=== PATIENT | female | born 1945 | race Caucasian/White ===

== ENCOUNTER → 2016-08-11 | Outpatient (REF) | payer MEDICARE, BC ==
[2016-08-11 16:22] LABS: BASO % 0.3 % (0.0-1.0); EOS # 0.2 K/mm3 (0.0-0.50); EOS % 3.4 % (0.0-3.0); LARGE UNSTAINED CELL # 0.1 K/mm3 (0.0-0.4); LARGE UNSTAINED CELL % 0.9 % (0.0-4.0); LYMPH # 1.7 K/mm3 (1.5-4.5); LYMPH % 23.2 % (24.0-44.0); MEAN CORPUSCULAR HEMOGLOBIN 28.8 pg (27.0-33.0); MEAN CORPUSCULAR HGB CONC 32.3 g/dl (32.0-36.5); MEAN CORPUSCULAR VOLUME 89.2 fl (80.0-96.0); MONO # 0.3 K/mm3 (0.0-0.8); MONO % 4.5 % (0.0-5.0); NEUTROPHILS # 4.9 K/mm3 (1.8-7.7); NEUTROPHILS % 67.7 % (36.0-66.0); PLATELET COUNT, AUTOMATED 240 k/mm3 (150-450); RED CELL DISTRIBUTION WIDTH 13.9 % (11.5-14.5); WHITE BLOOD COUNT 7.2 K/mm3 (4.0-10.0)
[2016-08-11 16:51] LABS: ALT/SGPT 20 U/L (12-78); GLOMERULAR FILTRATION RATE > 60.0 (>45)
[2016-08-11 20:09] LABS: ERYTHROCYTE SEDIMENTATION RATE 20 mm/hr (0-30)
== END ==
LOC: M LABDRAW1 15:40
PROVIDERS: ATTEND Internal Medicine Rheumatology
DX: Z51.81 Encounter for therapeutic drug level monitoring (principal); Z79.899 Other long term (current) drug therapy; M35.9 Systemic involvement of connective tissue, unspecified

== ENCOUNTER → 2016-12-03 | Outpatient (REF) | payer MEDICARE, BC ==
[2016-12-03 13:47] LABS: BASO % 0.3 % (0.0-1.0); EOS # 0.3 K/mm3 (0.0-0.50); EOS % 3.9 % (0.0-3.0); LARGE UNSTAINED CELL # 0.1 K/mm3 (0.0-0.4); LARGE UNSTAINED CELL % 1.3 % (0.0-4.0); LYMPH # 1.8 K/mm3 (1.5-4.5); LYMPH % 26.5 % (24.0-44.0); MEAN CORPUSCULAR HEMOGLOBIN 29.9 pg (27.0-33.0); MEAN CORPUSCULAR VOLUME 90.6 fl (80.0-96.0); MONO # 0.2 K/mm3 (0.0-0.8); MONO % 3.5 % (0.0-5.0); NEUTROPHILS # 4.5 K/mm3 (1.8-7.7); NEUTROPHILS % 64.6 % (36.0-66.0); PLATELET COUNT, AUTOMATED 244 k/mm3 (150-450); RED CELL DISTRIBUTION WIDTH 13.1 % (11.5-14.5); WHITE BLOOD COUNT 6.9 K/mm3 (4.0-10.0)
[2016-12-03 13:58] LABS: ALT/SGPT 28 U/L (12-78); GLOMERULAR FILTRATION RATE > 60.0 (>45)
[2016-12-03 14:42] LABS: ERYTHROCYTE SEDIMENTATION RATE 17 mm/hr (0-30)
== END ==
LOC: M LABDRAW1 13:02
PROVIDERS: ATTEND Internal Medicine Rheumatology
DX: M35.9 Systemic involvement of connective tissue, unspecified (principal); Z79.899 Other long term (current) drug therapy

== ENCOUNTER → 2017-04-16 | Outpatient (REF) | payer MEDICARE, BC ==
[2017-04-16 13:32] LABS: BASO % 0.5 % (0.0-1.0); EOS # 0.2 10^3/uL (0.0-0.50); EOS % 2.7 % (0.0-3.0); IMMATURE GRANULOCYTE % 0.8 % (0-0); LYMPH # 2.1 10^3/uL (1.5-4.5); LYMPH % 24.2 % (24.0-44.0); MEAN CORPUSCULAR HEMOGLOBIN 29.3 pg (27.0-33.0); MEAN CORPUSCULAR HGB CONC 32.6 g/dl (32.0-36.5); MEAN CORPUSCULAR VOLUME 89.9 fl (80.0-96.0); MONO # 0.4 10^3/uL (0.0-0.8); MONO % 4.9 % (0.0-5.0); NEUTROPHILS # 5.7 10^3/uL (1.8-7.7); NEUTROPHILS % 66.9 % (36.0-66.0); PLATELET COUNT, AUTOMATED 265 10^3/uL (150-450); RED CELL DISTRIBUTION WIDTH 12.8 % (11.5-14.5); WHITE BLOOD COUNT 8.6 10^3/uL (4.0-10.0)
[2017-04-16 13:38] LABS: ALT/SGPT 22 U/L (12-78); CREATININE FOR GFR 0.82 MG/DL (0.55-1.02); GLOMERULAR FILTRATION RATE > 60.0 (>45)
[2017-04-16 14:48] LABS: ERYTHROCYTE SEDIMENTATION RATE 16 mm/hr (0-30)
== END ==
LOC: M LABDRAW1 10:04
PROVIDERS: ATTEND Internal Medicine Rheumatology
DX: M35.1 Other overlap syndromes (principal); Z51.81 Encounter for therapeutic drug level monitoring; Z79.899 Other long term (current) drug therapy

== ENCOUNTER → 2017-07-29 | Outpatient (REF) | payer MEDICARE, BC ==
[2017-07-29 16:27] LABS: BASO % 0.5 % (0.0-1.0); EOS # 0.4 10^3/uL (0.0-0.50); HEMATOCRIT 38.7 % (36.0-47.0); HEMOGLOBIN 12.5 g/dl (12.0-16.0); IMMATURE GRANULOCYTE % 0.4 % (0-0); LYMPH # 2.1 10^3/uL (1.5-4.5); LYMPH % 26.2 % (24.0-44.0); MEAN CORPUSCULAR HEMOGLOBIN 28.9 pg (27.0-33.0); MEAN CORPUSCULAR HGB CONC 32.3 g/dl (32.0-36.5); MEAN CORPUSCULAR VOLUME 89.6 fl (80.0-96.0); MONO # 0.4 10^3/uL (0.0-0.8); MONO % 5.3 % (0.0-5.0); NEUTROPHILS % 62.6 % (36.0-66.0); PLATELET COUNT, AUTOMATED 259 10^3/uL (150-450); RED BLOOD COUNT 4.32 10^6/uL (4.00-5.40); RED CELL DISTRIBUTION WIDTH 12.7 % (11.5-14.5)
[2017-07-29 17:13] LABS: ALBUMIN 3.7 GM/DL (3.2-5.2); ALBUMIN/GLOBULIN RATIO 1.16 (1.00-1.93); ALKALINE PHOSPHATASE 67 U/L (45-117); ALT/SGPT 21 U/L (12-78); ANION GAP 5 MEQ/L (8-16); AST/SGOT 11 U/L (7-37); BILIRUBIN,TOTAL 0.3 MG/DL (0.2-1.0); BLOOD UREA NITROGEN 18 MG/DL (7-18); CALCIUM LEVEL 8.6 MG/DL (8.8-10.2); CARBON DIOXIDE LEVEL 29 MEQ/L (21-32); CHLORIDE LEVEL 108 MEQ/L (98-107); CREATININE FOR GFR 0.87 MG/DL (0.55-1.02); GLOMERULAR FILTRATION RATE > 60.0 (>45); GLUCOSE, FASTING 98 MG/DL (70-100); POTASSIUM SERUM 4.1 MEQ/L (3.5-5.1); SODIUM LEVEL 142 MEQ/L (136-145); TOTAL PROTEIN 6.9 GM/DL (6.4-8.2)
== END ==
LOC: M LABDRAW1 15:14
DX: M50.322 Other cervical disc degeneration at C5-C6 level (principal); M35.01 Sjogren syndrome with keratoconjunctivitis; Z79.899 Other long term (current) drug therapy
CPT/HCPCS: 80053

== ENCOUNTER → 2019-08-13 | Outpatient (CLI) | payer MEDICARE, BC ==
[2019-08-13 10:34] LABS: PLATELET COUNT, AUTOMATED 241 10^3/uL (150-450)
[2019-08-13 10:45] LABS: INR 1.02; PARTIAL THROMBOPLASTIN TIME 27.9 SECONDS (25.0-38.4); PROTHROMBIN TIME 13.1 SECONDS (11.8-14.0)
== END ==
LOC: M LAB 10:04
PROVIDERS: ATTEND Physician Assistant
DX: Z01.818 Encounter for other preprocedural examination (principal)

== ENCOUNTER → 2019-12-06 | Outpatient (CLI) | payer MEDICARE, BC | LOC: M LABSMTC 12:01 | PROVIDERS: ATTEND Physician Assistant | DX: Z11.59 Encounter for screening for other viral diseases (principal) ==

== ENCOUNTER → 2020-03-14 | Outpatient (CLI) | payer MEDICARE, BC | LOC: M LABSMTC 09:53 | PROVIDERS: ATTEND Physical Medicine & Rehabilitation | DX: Z01.812 Encounter for preprocedural laboratory examination (principal) ==

== ENCOUNTER → 2020-04-05 | Outpatient (CLI) | payer MEDICARE, BC ==
[2020-04-05 14:05] LABS: PLATELET COUNT, AUTOMATED 252 10^3/uL (150-450)
[2020-04-05 14:14] LABS: PROTHROMBIN TIME 13.4 SECONDS (12.5-14.3)
[2020-04-05 14:15] LABS: PARTIAL THROMBOPLASTIN TIME 28.8 SECONDS (24.2-38.5)
== END ==
LOC: M PLALAB 11:25
PROVIDERS: ATTEND Physician Assistant
DX: M48.061 Spinal stenosis, lumbar region without neurogenic claudication (principal)

== ENCOUNTER → 2020-05-09 | Outpatient (CLI) | payer MEDICARE, BC | LOC: M LABSMTC 10:45 | PROVIDERS: ATTEND Physical Medicine & Rehabilitation | DX: Z01.818 Encounter for other preprocedural examination (principal) ==

== ENCOUNTER → 2020-12-05 | Outpatient (CLI) | payer MEDICARE, BC ==
--- NOTE | 2020-12-05 12:22 | REPVR ---
PROCEDURE INFORMATION: Exam: MR Lumbar Spine Without Contrast Exam date and time: 12/05/2020 11:02 AM Age: 75 years old Clinical indication: Condition or disease; Disc degeneration; Lumbar region TECHNIQUE: Imaging protocol: Multiplanar magnetic resonance images of the lumbar spine without intravenous contrast. COMPARISON: No relevant prior studies available. FINDINGS: Vertebrae: No acute compression fracture is seen. There is minor retrolisthesis of L2 on L3 and L4 on L5. Spinal cord: The conus medullaris terminates at the inferior L1 level. L1-L2: There is moderate diffuse circumferential disc bulging, facet arthropathy, and thickening/buckling of the ligamentum flavum. This is causing mild spinal canal stenosis and mild left neural foraminal narrowing. There is no significant right foraminal stenosis. L2-L3: There is disc dehydration, severe disc space narrowing, moderate diffuse circumferential disc bulging, right foraminal and extraforaminal osteophytic ridging, moderate facet arthropathy, and thickening of the ligamentum flavum. This is causing mild spinal canal stenosis, mild narrowing of the right subarticular recess, moderate right neural foraminal narrowing, and minimal left neural foraminal narrowing. L3-L4: There is moderate diffuse circumferential disc bulging, facet arthropathy, and thickening of the ligamentum flavum. This is causing mild spinal canal stenosis, mild narrowing of the right subarticular recess, moderate right neural foraminal narrowing, and mild left neural foraminal narrowing. There is impingement of the exiting right L3 nerve. L4-L5: There is marked diffuse circumferential disc bulging, severe facet arthropathy, and thickening/buckling of the ligamentum flavum. This is causing severe spinal canal stenosis, severe narrowing of the subarticular recesses, and severe bilateral neural foraminal narrowing. L5-S1: Severe facet arthropathy is present. There is no spinal canal or neural foraminal stenosis. Soft tissues: Mild subcutaneous edema is present in the lower back. IMPRESSION: Marked degenerative changes of the lumbar spine as discussed above. Severe spinal canal stenosis and severe bilateral neural foraminal narrowing is present at L4-L5. Electronically signed by: Moreno Paz On 12/05/2020 12:22:40 PM
== END ==
LOC: M RAD 09:57
PROVIDERS: ATTEND Orthopaedic Surgery
DX: M48.07 Spinal stenosis, lumbosacral region (principal); M51.36 Other intervertebral disc degeneration, lumbar region

== ENCOUNTER 2021-05-09 09:00 | Emergency (ER) | payer MEDICARE, BC ==
[~2021-05-09] VITALS: Ht 157.5 cm; Wt 103.9 kg
--- OUTSIDE RECORDS SUMMARY | 2021-05-09 09:08 | CCD | Continuity of Care Document ---
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 Name Role Phone Bernadine Navarrete DO WELCHChristopher Unavailable Problems Active Problems Provider Date Dysfunction of eustachian tube Kobi Thomas MD Onset: Impacted cerumen Kobi Thomas MD Onset: 04/24/2011 Obstructive sleep apnea syndrome Kobi Thomas MD Onset: 04/24/2011 Hearing loss Kobi Thomas MD Onset: 04/24/2011 Other specified disorders of Eustachian tube, bilateral Marie Cavanaugh NP Onset: 04/17/2015 Social History Type Date Description Comments Sex Unknown ETOH Use Never used alcohol Tobacco Use Start: Unknown Patient has never smoked Allergies and adverse reactions Active Allergies Criticality Reaction | Severity Comments Date Sulfa Drugs Unable to assess criticality hives 04/24/2011 Morphine Unable to assess criticality 04/24/2011 Codeine Unable to assess criticality 04/24/2011 Adhesives Unable to assess criticality 02/20/2014 Medications Active Medications SIG Qnty Indications Ordering Provide r Date Cpap Device new resmed cpap 8cmh2o machine ( uses [facility]) 1units G47.33 Marie Carvalho NP 12/31/2020 Acyclovir 5% Ointment apply to affected area four times a day as needed cold sores 15gm Z68.41 Marie Carvalho NP 07/19/2018 Cpap Device new machine, cpap 8cmh2o (cflex+3) with heated humidifier and related supplies, belem 99mos, please tag on airveiw 1units G47.33 Kobi Thomas MD 11/22/2015 Cpap cpap 8cmh20 with c-flex plus +3 heated humidification and related supplies. belem:99mos G47.33 Kobi Thomas MD 05/19/2011 Mucinex D 120-1200mg Tablets ER 12 HR use as directed H69.83 Unknown Vitamin B Complex Tablets 1 by mouth every day Unknown Turmeric Curcumin Capsules Unknown Meloxicam 7.5mg Tablets 1 by mouth every day Unknown Fish Oil Plus Co Q-10 1000-30mg Ca psules Unknown Benefiber Tablets Unknown Famotidine 20mg Tablets take 1-2 tablets by mouth daily prn Unknown Gabapentin 300mg Capsules 1 by mouth three times a day Unknown Iron 28mg Tablets by mouth every day(over the counter unsure of dose) Unknown Cozaar 100mg Tablets 1 by mouth every day Unknown Spironolactone 50mg Tablets 1 by mouth every day Unknown Gabapentin 100mg Capsules 1 by mouth three times a day Unknown Baclofen 10mg Tablets 1 -2 by mouth at night Unknown Glucosamine Chondroitin 1500 Complex Max imum Strength 1500Com Capsules every day Unknow n Zyrtec Allergy 10mg Capsules 1 by mouth every day H61.23 Unknown Tylenol Arthritis Pain 650mg Table ts ER 1- 2 po bid prn Unknown Tums 500mg Chewtabs 1 po bid prn OTC Unknown Topicort 0.05% Ointment apply to affected skin up to qid prn rash 30gm Unknown 00 Ventolin HFA 108(90Base) mcg/ac Ae rosol 2 puffs q4h prn 1units Unknown Cyclobenzaprine HCL 10mg Tablets 1\\2 to one po tid prn muscle spasm 40tabs Unknown [place]-3 350mg Capsules 2 po q d Unknown Co Q10 100mg Capsules 1 po qd Unknown Glucosamine Chondroitin 250-200-116.67mg Capsules 1 po qd Unknown B Complex/Folic Acid 799-9-285wgc-mg-mcg Tablets 1 daily po 30tabs Unknown L-Lysine 500mg Capsules Unknown Vitamin D 1000Unit Capsules 1 po qd Unknown Calcium 600 600mg Tablets 1 p o qd Unknown Levothyroxine Sodium 100mcg Soluti on Rec 1 po qd 90units Unknown Diltiazem HCL ER 180mg Caps ER 24H R 2 daily in Am 30caps Unknown Immunizations Description No Information Available Vital Signs Date Vital Result Comment 03/05/2021 1:06pm Body Temperature 97.2 F Weight 230.50 lb Heart Rate 70 /min BP Systolic 138 mmHg BP Diastolic 86 mmHg O2 % BldC Oximetry 98 % 01/22/2021 3:04pm Weight 246.00 lb Heart Rate 96 /min BP Systolic 130 mmHg BP Diastolic 68 mmHg O2 % BldC Oximetry 99 % Results Description No Information Available Procedures Date Code Description Status 03/05/2021 77259 Office/Outpatient Established Mo d MDM 30-39 Min Completed 03/05/2021 72847 Remove Impacted Cerumen Requirin g Instrumentation Completed 01/22/2021 94775 Remove Impacted Cerumen Requirin g Instrumentation Completed 12/31/2020 77914 Office/Outpatient Established Mo d MDM 30-39 Min Completed 12/31/2020 65717 Remove Impacted Cerumen Requirin g Instrumentation Completed 10/31/2020 80867 Office/Outpatient Established Mo d MDM 30-39 Min Completed 10/31/2020 17366 Remove Impacted Cerumen Requirin g Instrumentation Completed Medical Devices Description No Information Available Encounters Type Date Location Provider Dx Diagnosis Office Visit 03/05/2021 1:20p MD Toan Shields Lori A FLOSSER H 60.93 Unspecified otitis externa, bilateral H69.83 Other specified disorders of Eustachian tube, bilateral H61.23 Impacted cerumen, bilateral K14.9 Disease of tongue, unspecifi ed G47.33 Obstructive sleep apnea (star lt) (pediatric) Office Visit 12/31/2020 11:20a MD Toan Shields Lori A, NP K 14.9 Disease of tongue, unspecified G47.33 Obstructive sleep apnea (star lt) (pediatric) H60.93 Unspecified otitis externa, bilateral H69.83 Other specified disorders of Eustachian tube, bilateral H61.23 Impacted cerumen, bilateral Office Visit 10/31/2020 1:20p Kobi Thomas MD Carvalho, Marie A, FLOSSER K 14.9 Disease of tongue, unspecified G47.33 Obstructive sleep apnea (star lt) (pediatric) H60.93 Unspecified otitis externa, bilateral H69.83 Other specified disorders of Eustachian tube, bilateral H61.23 Impacted cerumen, bilateral Assessments Date Code Description Provider 03/05/2021 H60.93 Unspecified otitis externa, bila teral Carvalho, Marie A, FLOSSER 03/05/2021 H69.83 Other specified disorders of Eus tachian tube, bilateral Carvalho, Marie A, FLOSSER 03/05/2021 H61.23 Impacted cerumen, bilateral Wood s, Marie A, FLOSSER 03/05/2021 K14.9 Disease of tongue, unspecified W oods, Marie A, FLOSSER 03/05/2021 G47.33 Obstructive sleep apnea (adult) (pediatric) Carvalho, Marie A, FLOSSER 01/22/2021 G47.33 Obstructive sleep apnea (adult) (pediatric) Carvalho, Marie A, FLOSSER 01/22/2021 H60.93 Unspecified otitis externa, bila teral Carvalho, Marie A, FLOSSER 01/22/2021 H69.83 Other specified disorders of Eus tachian tube, bilateral Carvalho, Marie A, FLOSSER 01/22/2021 H61.23 Impacted cerumen, bilateral Wood s, Marie A, FLOSSER 01/22/2021 K14.9 Disease of tongue, unspecified W oods, Marie A, FLOSSER 12/31/2020 K14.9 Disease of tongue, unspecified W oods, Marie A, FLOSSER 12/31/2020 G47.33 Obstructive sleep apnea (adult) (pediatric) Carvalho, Marei A, FLOSSER 12/31/2020 H60.93 Unspecified otitis externa, bila teral Carvalho, Marie A, FLOSSER 12/31/2020 H69.83 Other specified disorders of Eus tachian tube, bilateral Carvalho, Marie A, FLOSSER 12/31/2020 H61.23 Impacted cerumen, bilateral Wood s, Marie A, FLOSSER 10/31/2020 K14.9 Disease of tongue, unspecified W Marie orr NP 10/31/2020 G47.33 Obstructive sleep apnea (adult) (pediatric) Marie Carvalho NP 10/31/2020 H60.93 Unspecified otitis externa, bila teral Marie Carvalho NP 10/31/2020 H69.83 Other specified disorders of Eus tachian tube, bilateral Marie Carvalho NP 10/31/2020 H61.23 Impacted cerumen, bilateral Marie Cavanaugh NP Plan of Treatment Future Appointment(s):* 04/30/2021 1:40 pm - Marie Carvalho NP at Kobi Thomas MD 03/05/2021 - Marie Carvalho NP* H60.93 Unspecified otitis externa, bilateral* Comments:* Patient has white discharge thick and removed with suction. patient to continue using Debrox drops 2-3 times a day. Will follow in 8 weeks. * H69.83 Other specified disorders of Eustachian tube, bilateral* Comments:* Will have the patient try a Valsalva manuever to see if this helps clear her ears and the sensation of fullness. * H61.23 Impacted cerumen, bilateral* Comments:* Patient has discharge and thick and white and no cerumen noted. Patient to use Debrox drops. * K14.9 Disease of tongue, unspecified* Comments:* No changes to granulomas on lateral tongue. * G47.33 Obstructive sleep apnea (adult) (pediatric)* Comments:* Patient has excellent compliance and low AHI and is getting supplies. No daytime fatigue. * All * Follow up:* 8 weeks ear cleaning , [facility] Functional Status Description No Information Available Mental Status Description No Information Available Referrals Description No Information Available"
--- OUTSIDE RECORDS SUMMARY | 2021-05-09 09:08 | CCD | Clinical Summary ---
Author Author [employer] [facility] Organization [facility] Address [address] [place] [address] Phone Care Team Providers [employer] Specialist Name Role Phone [place], Imaging Unavailable [phone] Torri Messina MD, Pop Unavailable [phone] Db FIORE, Denny Unavailable [phone] William FIORE, Kobi Unavailable [phone] Landon BARBOZA, Bernadine Cardona PP [phone] Zaheer FIORE, Dominick Unavailable [phone] Reason for Referral Date Encounter Description Provider Reason for Referral 02/22/21 Fabian Ordoñez SERVICE UNIT OPERATOR Request Consu ltation By Specialist Reason for Visit and Chief Complaint visit for: AHR - The Chief Complaint is: Patient presents to the office unacco mpanied and assisted with a cane. She is here for her annual wellness exam. Doin g well on all medications. She has been experiencing dizziness for the last coup le months. Has seen a specialist for this and she does say it has been getting b peterson. [place] Problems Includes: Problems addressed during this encounter and other active Problems Current Visit Onset Date - Time Resolved Date - Time Provider C ondition Status Nonorganic Sleep Apnea Obstructive 08/12/2019 - 12:00AM Bernadine Navarrete DO Active Note: wears CPAP Obesity Morbid 10/31/2015 - 12:00AM Norah Henson MD Active Note: Improved Hyperlipidemia 04/23/2015 - 12:00AM Norah Henson MD Active Note: Unchanged Nonorganic Sleep Apnea Obstructive 05/02/2011 - 12:00AM Norah Henson MD Inactive Note: Well-Controlled Colonoscopy (Fiberoptic) 01/31/2008 - 12:00AM Norah Henson MD Inactive Note: Well-Controlled - 03/12 HYPERPLASTIC POLYP REPEAT 5 YRS.wnl 02/14, repeat 5 yrs for high risk due to hx of polyps per melissa echevarria . A few diverticula were found in sigmoid colon. internal hemorrhoids, repeat 5 years for sueveillance per dr echevarria "history of polyps". Hypothyroidism 01/31/2008 - 12:00AM Norah Henson MD Active Note: Well-Controlled - foll owed by Dr Schmitz, endocrine Reported Family History of Heart Disease 07/26/2007 - 12:00AM Norah Henson MD Inactive Note: Unchanged Past Visits Onset Date - Time Resolved Date - Time Provider Co ndition Status Post-traumatic osteoarthritis, right ankle and foot 09/10/2019 - 12:00AM Adrienne Carrington NP Active Note: following with ORTHO; ankle lace up boot prescribed Spinal Stenosis Lumbar Canal Without Neurogenic Claudi cation 09/10/2019 - 12:00AM Bernadine Navarrete DO Active Note: foraminal epidural inj ections 08/15/19 Intervertebral Disc Degeneration 09/10/2019 - 12:00AM Adrienne Carrington NP Active Note: with spondylosis Impacted cerumen, unspecified ear 08/12/2019 - 12:00AM Adrienne Carrington NP Active Neoplasm of uncertain behavior of tongue 08/12/2019 - 12:00AM Adrienne Carrington NP Active Note: fibroma-like lesion; l eft dorsal tongue removed by ENT 05/2019 Major Depression, Single Episode Moderate 08/09/2019 - 12:00AM Bernadine Navarrete DO Active Spinal Stenosis 07/11/2019 - 12:00AM Bernadine Navarrete DO A ctive Note: MRI 07/05/19 showed mo d to severe spinal stenosis at L4/5, and advanced DDD at L1/2 and L3/4; referal to ortho spine placed, 11/09/20 MRI of spine ordered, surgical intervention is to risky relating to her BMI; severe spinal stenosis seen at L4/5 on MRI 12/05/20 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 02/21/2019 - 12:00AM Hortencia Howell NP Active Lumbar Radiculopathy 05/17/2018 - 12:00AM Norah hankins MD Active Sjogren Syndrome 11/11/2017 - 12:00AM Norah samuels MD Active Visit For: Screening Exam Osteoporosis 05/05/2016 - 12:00AM Bernadine Navarrete DO Active Note: normal bone density Visit For: Screening Malignant Neoplasm Colon 05/05/2016 - 12:00 AM Bernadine Navarrete DO Active Note: last colonoscopy ; needs repeat in 10 years Visit For: Screening Exam Malignant Neoplasm Breast 05/05/2016 - 12:00AM Adrienne Carrington NP Active Note: followed by Dr Wilcox; 03/13/20 mammogram negative Essential Hypertension 10/31/2015 - 12:00AM Norah Henson MD Active Note: Stable Hyperparathyroidism 06/24/2012 - 12:00AM Norah webber MD Active Note: Stable Eczematoid Dermatitis 01/31/2008 - 12:00AM Norah Henson MD Active Note: Unchanged - doing well with occasional topicort. left breast Osteoarthritis 01/31/2008 - 12:00AM Norah Henson MD Active Note: Stable - BRANDY+ 1:40. Ev aluated by Dr Mejia, thought to be OA. Gerd 07/26/2007 - 12:00AM Norah Tapia Active Note: Unchanged Plan of Treatment Pending Tests Order Diagnosis Results Due Ordering Provi vanessa In House Meds - Imm Rat Poisoner (Pecha) Please give immunizations today per order Encounter for general adult medical exam w abnormal findings 02/22/21 Blaze N Bentleyvec SERVICE UNIT OPERATOR Lab CBC w/ Auto Diff 05/23/21 Blaze N Kra vec SERVICE UNIT OPERATOR Lab COMPREHENSIVE METABOLIC PANEL 05/23/21 Blaze N Kravec SERVICE UNIT OPERATOR Lab LIPID PANEL 05/23/21 Blaze N Kravec SERVICE UNIT OPERATOR Lab MICROALBUMIN RANDOM 05/23/21 Blaze N Kravec SERVICE UNIT OPERATOR Lab TSH 05/23/21 Blaze N Kravec SERVICE UNIT OPERATOR Future Appointments Date Time Location Provider H Adult Prophy 07/15/2021 11:05AM Abby woodard [facility] Future Tests Order Diagnosis Results Due Ordering Provid er Follow-up Appt - Follow-up Chronic Revisit in 6 months Enc ounter for general adult medical exam w abnormal findings 02/22/21 Blaze N Bentleyvec SERVICE UNIT OPERATOR Visit Summary - Standard Visit Visit Summary Standard Visi t Encounter for general adult medical exam w abnormal findings 02/22/21 Fabian Ordoñez SERVICE UNIT OPERATOR Records Endocrine Hypothyroidism, unspecified 02/22/21 Fabian Ordoñez SERVICE UNIT OPERATOR Records Immunizations Essential (primary) hypertension 1 Fabian Ordoñez SERVICE UNIT OPERATOR - Return to the clinic if condition worsens or new symptoms arise - Follow-up visit Assessments Includes: Assessments from this encounter - Routine history and physical see updated problem list above for impression and plan of any problems addressed today. - Obstructive sleep apnea - Hyperlipidemia - Morbid obesity - Hypothyroidism - Dermatitis Instructions Includes: Instructions from this encounter Education and Decision Aids were provide d during visit for: Patient education about pain management Parent education about immunizations Re viewed and VIS given to parent Patient appeared to understand therapeut ic regimen Self-management goals initiated / update d for patient 02/22/2021 The PATIENT'S GOAL is to eat 10 servings of fresh vegetables per week - The patient's current fresh/frozen veg etable status is 6 servings of fresh/frozen vegetables per week The PATIENT'S GOAL is to weigh 200 pound s - The patient's current weight is 230 po unds The PATIENT'S GOAL is to miss less than 1 dose(s) of medication per week - The patient's current missed medicatio n status is 0 dose(s) of medication per week Hyperparathyroidism, unspecified (Proble m) Medical Equipment - Implanted Devices Includes: Current DevicesNo Medical Equipment Recorded Medications Includes: Medications discussed during this encounter and other current Medicati ons New / Renewed during this visit Fabian Ordoñez SERVICE UNIT OPERATOR on 02/22/2021 Nystatin [id number] UNIT/GM External Cream P rovider: Fabian Ordoñez SERVICE UNIT OPERATOR 30 day supply: 1 gram, 0 refills Diagnosis: Other specified dermatitis apply under breasts twice daily as needed Pharmacy: [facility] - [address] [facility], [phone] - Nystatin [id number] UNIT/GM External Powder Provider: Fabian Ordoñez NP 30 day supply: 1 gram, 0 refills Diagnosis: Other specified dermatitis apply under breasts twice daily- as needed Pharmacy: [facility] - [address] [facility], [phone] - dilTIAZem HCl ER Beads 180 MG Oral Capsule Extended Release 24 Hour Provider: Fabian Ordoñez NP 30 day supply: 60 capsule, 5 refills Diagnosis: Es sential (primary) hypertension 2 once a day every morning Pharmacy: [facility] - [address] [facility], [phone] - Ventolin HFA 108 (90 Base) MCG/ACT Inhalation Aerosol Soluti on Provider: Fabian Ordoñez SERVICE UNIT OPERATOR 30 day supply: 1 gram, 11 refills Diagnosis: as directed; 2 puffs INH Q4hr PRN SOB/ wheezing/ cough Phar danny: [facility] #32 - [address] [facility], [id number] - Spironolactone 50 MG Oral Tablet Provide r: Fabian Ordoñez SERVICE UNIT OPERATOR 30 day supply: 30 tablet, 5 refills Diagnosis: once a day Pharmacy: [facility] # - [address] [place] [address], [id number] - Losartan Potassium 100 MG Oral Tablet Pr ovider: Fabian Ordoñez NP 30 day supply: 30 tablet, 5 refills Diagnosis: once a day Pharmacy: [facility] - [address] [facility], [id number] - Gabapentin 300 MG Oral Capsule Provider: Fabian Ordoñez NP 30 day supply: 90 capsule, 5 refills Diagnosis: three times a day Pharmacy: [facility] - [address] [facility], [id number] - Current Medications (continue as prescribed) Baclofen 10 MG Oral Tablet 12/12/2020 Provider: Diagnosis: Spironolactone 25 MG Oral Tablet 09/06/2020 Provide r: Yesenia Tran NP Diagnosis: Essential (primary) hypertension 1 tab once a day every morning. Mobic 7.5 MG Oral Tablet 08/24/2020 Provider: Berandine Navarrete DO Diagnosis: Unspecified osteoart hritis, unspecified site twice a day Cyclobenzaprine HCl 10 MG Oral Tablet 08/24/2020 Pr ovider: Bernadine Navarrete DO Diagnosis: Unspecified osteoart hritis, unspecified site 1 every bedtime Acetic Acid 2% Otic Solution 06/27/2019 Provider: Diagnosis: Famotidine 10 MG Oral Tablet 05/13/2019 Provider: Diagnosis: CoQ-10 200 MG Oral Capsule 04/07/2019 Provider: Diagnosis: *Over The Counter Ferrous Gluconate 225 (27 Fe) MG Oral Tablet 04/07/2019 Provider: Diagnosis: Benefiber Oral Powder 12/24/2018 Provider: Diagnosis: Tums 500MG Oral Tablet Chewable 12/24/2018 Provider : Diagnosis: otc L-Lysine 500MG Oral Tablet 12/24/2018 Provider: Diagnosis: otc Levothyroxine Sodium 100MCG Oral Tablet 12/24/2018 Provider: Diagnosis: dr schmitz, endocrine Glucosamine Chondr 1500 Complx Oral Capsule 12/24/2018 Provider: Diagnosis: otc EQL [place] 3 Fish Oil 1200MG Oral Capsule 12/24/2018 Provider: Diagnosis: *Over The Counter Cetirizine HCl 10MG Oral Tablet 12/24/2018 Provider : Diagnosis: once daily PRN Calcium 600-D [id number] Oral Tablet 12/24/2018 Provider: Diagnosis: otc, endocrine has her take 2-3 daily B Complex Oral Capsule 12/24/2018 Provider: Diagnosis: otc Turmeric Curcumin Oral Capsule 12/24/2018 Provider: Diagnosis: Vitamin D3 1000UNIT Oral Tablet 12/24/2018 Provider : Diagnosis: Currently taking 5000 units per endocrine*Over The Counter Fish Oil 1200MG Oral Capsule 12/24/2018 Provider: Diagnosis: *Over The Counter Ventolin HFA 108 (90 Base)MCG/ACT Inhalation Aerosol Solutio n 05/17/2018 Provider: Norah Henson MD Diagnosis: Unspecified asthma, uncomplicated ud - as directed as directed 2 puffs q 4 hrs/ prn Desoximetasone 0.05% External Cream 05/17/2018 Prov ider: Norah Henson MD Diagnosis: Unspecified contact dermatitis, unspecified cause once a day prn rash breast sparingly Acetaminophen 650 MG RE SUPP 09/21/2013 Provider: Diagnosis: otc Past Medications on file Medrol 4 MG Oral Tablet Therapy Pack 02/10/2020 - 02/16/2020 Provider: Bernadine Navarrete DO Diagnosis: as directed Butrans 5 MCG/HR Transdermal Patch Weekly 08/09/2019 - 09/05 Provider: Bernadine Navarrete DO Diagnosis: as directed; apply one patch to upper arm, chest, or back on ce every 7 days predniSONE 20 MG Oral Tablet 06/30/2019 - 07/05/2019 Provide r: Bernadine Cardona Landon BARBOZA Diagnosis: Radiculopathy, lumba r region 2 once a day; with food Medications Administered Includes: Administered Medications from this encounterNo Administered Medications Recorded Vital Signs Includes: Vital Signs from this encounter Vital Name 02/22/2021 10:08A Blood Pressure Sitting R 131/76 BP Cuff Size Large Pulse Rate-Sitting (bpm) 98 Temp-Tympanic (F) 97.9 Height (in) 64 Weight (lb) 230 Body Mass Index (kg/m2) 39.5 Body Surface Area (m2) 2.08 Pain Level 5 Oxygen Saturation (%) 99 Flow Rate (l/min) (None (Room Air)) FiO2 (%) 21 Results Includes: Results discussed during this encounterNo Results Recorded For Specified Dates History of Present Illness Includes: History of Present Illness from this encounter Genet Carroll is a 75 year old female. - Allergy list reviewed - Medication list reviewed - - Primary physician: KAMRAN Thomson - - Request consultation by specialist - No previous emergency room visit Genet presents today for AHR. He ronly concern is redness/itching under the breasts- this seems fungal, hygeine discussed and antifgunals prescribed. Labs f rom 10/24 reviewed- calcium WNL, TSH WNL, A1C 5.8, LDL was 83 on 07/25. Repeats ordered for next visit. Pt is followedby ortho for LBP- potential decompression surgery discussed, MRI reviewed. She is also followed by endo for hypothyroidism and parathyroidism- both stable, will request notes. Mammo- pt followed by breast surgeon- mammo from 03/25 reviewed Pap- N/A- no post menopausal bleeding Colon- colonoscopy preformed 2015, neg for polyps- repeat advised for 10yrs Bone Density- neg for osteopetrosis- 11/22 Imms- Boostrix given today, otherwise UTD- pt declined flu today, will get at pharmacy when available. No active illness within the past week (temp > 100.0 F), no allergies (vaccines, eggs, gelatin), and no recent immunization (live virus: MMR, Varicella, Shingles, Rotovirus, Influenza in past 28 days). Vital signs: (Temperature, Pulse and Respirations obtained, reviewed and within normal limits). No diagnosis of (current or chance of in the next month). No diagnosis of adverse effect of vaccines. No diagnosis of neurologic disorder (Jyothi [place], Uncontrolled Seizure disorder). No diagnosis of immunologic disorder (cancer, leukemia, AIDS, other). Review of immunization history 02/22/2021. No gamma globulin (in the past year). Consent Obtained for Vaccines - Parent / Caregiver Present. No steroids (in the past three months). No cancer chemotherapeutic agents (any anti-cancer treatment in the past one month). No blood transfusion (or blood products in the past one month). Need for vaccination TDaP VIS Sheet date 08/29/14 given. Social History Description Last Updated Drug use Denies Drug Use 02/22/2021 Alcohol use Denies alcohol consumption 02/22/2021 Bachelors degree completed 02/22/2021 Caffeine use 02/22/2021 Educational level b[employer] degree 02/22/2021 No domestic violence 02/22/2021 No physical disability 02/22/2021 No secondhand cigarette smoke exposure 02/22/2021 Normal activities of daily living 02/22/2021 Not using drugs 02/22/2021 Sexually active 02/22/2021 Smoking status 09/19/2020 : Never smoker 02/22/2021 Smoking status 02/22/2021 : Never smoker 02/22/2021 Procedures and Surgical History Includes: Procedures from this encounter Procedures Code Diagnosis Performing Provider Service Location Service Date Tdap, Tetanus, [place]he[place] [id number] Encounter for immunization Fabian Ordoñez NP 02/22/2021 continue current medication unless otherwise stated parent education about immunizations Reviewed and VIS given to parent Transition in care medication list update medical regimen review drug and/or alcohol abuse structured scr eening and brief intervention 02/22/2021 : Prescreening Completed - No Further Screening Indicated Clinical summary provided to patient Summary provided electronically in CCDA format & reasonable certainty of receipt Surgical History Last Updated History of ankle surgery 2007 x 2 02/22/2021 History of appendectomy incidental to cholecystectom y 197402/22/2021 History of breast lumpectomy was perform ed benign tumor removed right breast 199402/22/2021 History of cholecystectomy 197402/22/2021 History of decompression of median nerve at carpal tunnel right 2001, left 201202/22/2021 History of tubal ligation 197902/22/2021 History of venous ligation lt leg 02/22/2021 Medical History Includes: Medical History addressed during this encounter Description Last Updated Diverticulosis of intestine 04/02/2016 02/22/2021 2 02/22/2021 Hemorrhoids 04/02/2016 02/22/2021 History of allergic rhinitis : followed by Dr William Franco 02/22/2021 History of benign lichenoid keratosis followed by terrell 02/22/2021 History of cerumen impaction : followed by Dr William Franco 02/22/2021 History of chronic kidney disease (NKF c lassification) : GFR 56, resolved, now wnl 02/22/2021 History of chronic serous otitis media : followed by Willie Thomas 02/22/2021 History of chronic sinusitis : followed by Dr William Franco 02/22/2021 History of eustachian tube dysfunction : followed by Willie Thomas 02/22/2021 History of hearing loss : followed by Dr Thomas 2020 History of hypocalcemia resolved 02/22/2021 History of thyroid disorder 02/22/2021 History of vitamin D deficiency --well controlled Internal hemorrhoids 04/02/2016 02/22/2021 No diagnosis of history of coronary artery disease No diagnosis of history of diabetes mellitus No diagnosis of history of type 2 diabetes mellitus Para 2 02/22/2021 Family History Includes: Family History addressed during this encounter Description Last Updated Family history of diabetes mellitus brother 1 Family history of drug use Brother 02/22/2021 Family history of heart disease father mi 43 02/23/20 21 Family history of hypertension brother 02/22/2021 No family history of cancer 02/22/2021 No family history of depression 02/22/2021 Paternal history of drug use 02/22/2021 Review of Systems Includes: Review of Systems from this encounterNo Review of Systems Recorded Mental Status Includes: Mental Status from this encounter Description Oriented to time, place, and person Functional Status Includes: Functional Status from this encounterNo Functional Status Recorded Physical Exam Includes: Physical Exam from this encounter Eyes: -Eyes: normal Ears, Nose, Throat: -no hearing loss noted -no nasal discharge seen -no external auditory canal obstruction -the oropharynx was not inflamed Neck: -the neck demonstrated no decrease in suppleness -the thyroid showed no abnormalities -no cervical mass was seen Lymph Nodes: -the supraclavicular lymph nodes were not enlarged Lungs: -normal breath sounds/voice sounds -no wheezing was heard -no rhonchi were heard -no rales/crackles were heard Cardiovascular System: -no murmurs were heard -heart rate and rhythm normal -no bradycardia present -no tachycardia present Abdomen: -abdominal non-tender Neurological System: -oriented to time, place, and person Skin: -the skin general appearance was normal General Status: -in no acute distress -well developed -well nourished Vital Signs: -current vital signs reviewed Immunizations Includes: Immunizations addressed during this encounter Vaccine Dose # Date Site Reaction(s) Status Source Boostrix 2 02/22/2021 Left Deltoid Complete (Administered) [facility] Allergies Includes: Active Allergies Substance Type Reaction Onset Date - Time Resolved Date - Ti me Status traMADol HCl Allergy Skin Rashes, Hives, ULTRACET 07/23/2007 - 12: 00AM Active Thiazide Diuretics Allergy Skin Rashes, Hives 07/23/2007 - 12:00AM Active Sulfa Antibiotics Allergy Skin Rashes, Hives, itching 07/23/2007 - 12:00AM Active Percocet Allergy itchy 07/26/2007 - 12:00AM Acti ve Morphine/D5W Allergy 02/01/2009 - 12:00AM Ac tive Note: chest pain due to acid reflux hydroCHLOROthiazide Allergy Skin Rashes, Hives 07/23/2007 - 12:00A M Active Duragesic-100 Allergy Nausea, Vomiting, Diarrhea 05/05/2016 - 12:0 0AM Active Note: vomited for 12hours Darvon Allergy Shock, Unconsciousness 07/23/2007 - 12:00AM Active Bextra Allergy itching 07/23/2007 - 12:00AM Acti ve Beta Adrenergic Blockers Allergy Asthma, Shortness of Br eath 07/23/2007 - 12:00AM Active Bactrim Allergy Skin Rashes, Hives, itching 07/23/2007 - 12:00A M Active adhesive / band-aids Allergy 07/23/2007 - 12:00AM Active Encounters Encounter Provider Location Date Check-In Time Check-Out Time D iagnosis AHR Blaze N Kravec SERVICE UNIT OPERATOR [facility] 02/22/2021 9:55AM 11:07 AM Routine History and Physical, Hyperlipidemia, Hypothyroidism, Nonorganic Sleep Apnea Obstructive, Obesity Morbid, Dermatitis Insurance Includes: Active Insurance Policies Plan Name Member ID Group # Subscriber Relationship Effective Da josé luis 1 - [employer] [id number] Genet Carroll Self 10/04/2012 - Unknown 2 - [facility] [id number] Genet Carroll S elf 07/06/2015 - Unknown Advance Directives Includes: Current Advance Directives Directive Pat Aware Third Green Party Effective Date Reviewed Status Ebola Screening Performed Yes 04/25/2020 Current and Verified Note: Within the last month, have you traveled outside of the [place]? - NO packet given Pt Bill of Rights, Priv Prac, Ad Dir Yes 02/22/2021 Current and Verified Note: Pt declined AD packet COVID Screening Performed Yes 02/22/2021 Current and Verified Health Concerns Includes: Health Concerns for current assessments Hyperlipidemia Onset 04/23/2015 Hypothyroidism Onset 01/31/2008 Obesity Morbid Onset 10/31/2015 Goals Includes: Active Goals for current assessments Maintain a normal TSH and thyroid*Hypoth yroid managementMaintain normal thyroid function hormone function Added 01/31/2008 by Provider Health Concern: Hypothyroidism *Hyperlipidemia (elevated cholesterol/ca rdiac risk)To minimize your risk of cardiovascular disease. Added 04/23/2015 by Provider Health Concern: Hyperlipidemia *Obesity management:Your goal is to los e 5-10% of your current weight and to keep it off. Added 10/31/2015 by Provider Health Concern: Obesity Morbid Interventions Includes: Interventions for current assessments Continue levothyroxine as prescribed by your undercar specialist.Follow up with your undercar specialist. Added 01/31/2008 Goal: Maintain a normal TSH and thyroid*Hypothyroid managementMaintain normal thyroid function hormone function Linked Medication: Levothyroxine Sodium 100MCG Oral Tablet Your 10 year risk of cardiovascular dise ase is 12.8%Your 10 year risk of cardiovascular disease is more than 7.5%, therefore statin therapy should be considered. We have discussed this, and you do not feel that you want to have the side effects associated with statins. We discussed that most people do not have side effects associated with statins and we could do a trial, however you have declined.Lifestyle modifications are recommended: Eat a heart-healthy diet, get regular aerobic exercise, maintain a desirable body weight, and avoid tobacco products including second hand smoke.A heart healthy diet consists of avoidance of trans fats (hydrogenated oils), limiting saturated fat (animal fat), emphasis on fruits and vegetables while limiting starches and sugars, and use of nut and plant oils such as olive oil and nut oils. Added 04/23/2015 Goal: *Hyperlipidemia (elevated cholesterol/cardiac risk)To minimize your risk of cardiovascular disease. Linked Medication: Fish Oil 1200MG Oral Capsule Reduce daily caloric intake and eat a lo w fat diet that limits processed foods and includes fresh fruits and vegetables and lean meats/proteins. Decreasing your usual daily calorie intake by 500 calories (less the calories burned by increasing your activity) will, on average, cause you to lose 1 pound per week. Aim for at least 30 minutes of physical activity at least 5 days per week.Your BMI (Body weight index or height/weight ratio) is 44A BMI of 25 or below is considered a healthy BMI. Each BMI point equals about 5 pounds.Bariatric surgery could be considered. We have discussed this and you have declined. You have gained 7 pounds since the last visit. Added 10/31/2015 Goal: *Obesity management:Your goal is to lose 5-10% of your current weight and to keep it off. Evaluations & Outcomes Includes: Evaluations & Outcomes for current assessments Goal converted from Patient Problem data . Goal is currently In Progress. Added 01/31/2008 - In Progress Goal: Maintain a normal TSH and thyroid*Hypothyroid managementMaintain normal thyroid function hormone function Goal converted from Patient Problem data . Goal is currently In Progress. Added 04/23/2015 - In Progress Goal: *Hyperlipidemia (elevated cholesterol/cardiac risk)To minimize your risk of cardiovascular disease. Goal converted from Patient Problem data . Goal is currently In Progress. Added 10/31/2015 - In Progress Goal: *Obesity management:Your goal is to lose 5-10% of your current weight and to keep it off.
--- OUTSIDE RECORDS SUMMARY | 2021-05-09 09:09 | CCD ---
Author Author [facility] Address Unknown Phone Unavailable Care Team Providers Care Feed Elevator Worker Name Role Phone Joya, A Marie PHYSICIAN OBSTETRICIAN Unavailable Unavailable Joya, A Marie PHYSICIAN OBSTETRICIAN Unavailable Unavailable Joya, A Marie PHYSICIAN OBSTETRICIAN Unavailable Unavailable Joya, A Marie PHYSICIAN OBSTETRICIAN Unavailable Unavailable Joya, A Marie PHYSICIAN OBSTETRICIAN Unavailable Unavailable Joya, A Marie PHYSICIAN OBSTETRICIAN Unavailable Unavailable Joya, A Marie PHYSICIAN OBSTETRICIAN Unavailable Unavailable Joya, A Marie PHYSICIAN OBSTETRICIAN Unavailable Unavailable Joya, A Marie PHYSICIAN OBSTETRICIAN Unavailable Unavailable Joya, A Marie PHYSICIAN OBSTETRICIAN Unavailable Unavailable Joya, A Marie PHYSICIAN OBSTETRICIAN Unavailable Unavailable Joya, A Marie PHYSICIAN OBSTETRICIAN Unavailable Unavailable Joya, A Marie PHYSICIAN OBSTETRICIAN Unavailable Unavailable Ojya, A Marie PHYSICIAN OBSTETRICIAN Unavailable Unavailable Joya, A Marie PHYSICIAN OBSTETRICIAN Unavailable Unavailable Joya, A Marie PHYSICIAN OBSTETRICIAN Unavailable Unavailable Joya, A Marie PHYSICIAN OBSTETRICIAN Unavailable Unavailable Joya, A Marie PHYSICIAN OBSTETRICIAN Unavailable Unavailable Joya, A Marie PHYSICIAN OBSTETRICIAN Unavailable Unavailable Joya, A Marie PHYSICIAN OBSTETRICIAN Unavailable Unavailable Joya, A Marie PHYSICIAN OBSTETRICIAN Unavailable Unavailable Joya, A Marie PHYSICIAN OBSTETRICIAN Unavailable Unavailable Joya, A Marie PHYSICIAN OBSTETRICIAN Unavailable Unavailable Joya, A Marie PHYSICIAN OBSTETRICIAN Unavailable Unavailable Joya, A Marie PHYSICIAN OBSTETRICIAN Unavailable Unavailable Joya, A Marie PHYSICIAN OBSTETRICIAN Unavailable Unavailable Luis Armando CAVAZOS MD Unavailable Unavailable Luis Armando CAVAZOS MD Unavailable Unavailable Luis Armando CAVAZOS MD Unavailable Unavailable Luis Armando CAVAZOS MD Unavailable Unavailable Luis Armando CAVAZOS MD Unavailable Unavailable Luis Armando CAVAZOS MD Unavailable Unavailable Luis Armando CAVAZOS MD Unavailable Unavailable Luis Armando CAVAZOS MD Unavailable Unavailable Luis Armando CAVAZOS MD Unavailable Unavailable Luis Armando CAVAZOS MD Unavailable Unavailable DI KATHARINA, Luis Armando ROSARIO MD Unavailable Unavailable DI KATHARINA, Luis Armando ROSARIO MD Unavailable Unavailable DI KATHARINALuis Armando MD Unavailable Unavailable DI KATHARINA, Luis Armando ROSARIO MD Unavailable Unavailable DI KATHARINA, Luis Armando ROSARIO MD Unavailable Unavailable DI KATHARINA, Luis Armando ROSARIO MD Unavailable Unavailable DI KATHARINALuis Armando MD Unavailable Unavailable DI KATHARINALuis Armando MD Unavailable Unavailable DI KATHARINA, Luis Armando ROSARIO MD Unavailable Unavailable DI KATHARINALuis Armando MD Unavailable Unavailable DI KATHARINA, Luis Armando ROSARIO MD Unavailable Unavailable DI KATHARINA, Luis Armando ROSARIO MD Unavailable Unavailable DI KATHARINA, Luis Armando ROSARIO MD Unavailable Unavailable DI KATHARINA, Luis Armando ORSARIO MD Unavailable Unavailable DI KATHARINA, Luis Armando ROSARIO MD Unavailable Unavailable DI KATHARINA, Luis Armando ROSARIO MD Unavailable Unavailable DI KATHARINA, Luis Armando ROSARIO MD Unavailable Unavailable DI KATHARINA, Luis Armando ROSARIO MD Unavailable Unavailable DI KATHARINA, Luis Armando ROSARIO MD Unavailable Unavailable DI KATHARINA, Luis Armando ROSARIO MD Unavailable Unavailable DI KATHARINALuis Armando MD Unavailable Unavailable DI KATHARINA, Luis Armando ROSARIO MD Unavailable Unavailable DI KATHARINA, Luis Armando ROSARIO MD Unavailable Unavailable DI KATHARINA, Luis Armando ROSARIO MD Unavailable Unavailable DI KATHARINA, Luis Armando ROSARIO MD Unavailable Unavailable DI KATHARINA, Luis Armando ROSARIO MD Unavailable Unavailable DI KATHARINA, Luis Armando ROSARIO MD Unavailable Unavailable DI KATHARINALuis Armando MD Unavailable Unavailable DI KATHARINA, Luis Armando ROSARIO MD Unavailable Unavailable DI KATHARINALuis Armando MD Unavailable Unavailable DI KATHARINA, Luis Armando ROSARIO MD Unavailable Unavailable DI KATHARINA, Luis Armando ROSARIO MD Unavailable Unavailable DI KATHARINA, Luis Armando ROSARIO MD Unavailable Unavailable DI KATHARINALuis Armando PERERA MD Unavailable Unavailable DI AKTHARINALuis Armando MD Unavailable Unavailable DI KATHARINALuis Armando PERERA MD Unavailable Unavailable DI KATHARINALuis Armando MD Unavailable Unavailable DI KATHARINALuis Armando PERERA MD Unavailable Unavailable DI KATHARINALuis Armando MD Unavailable Unavailable DI KATHARINALuis Armando PERERA MD Unavailable Unavailable DI KATHARINALuis Armando PERERA MD Unavailable Unavailable DI KATHARINALuis Armando MD Unavailable Unavailable DI KATHARINALuis Armando PERERA MD Unavailable Unavailable DI KATHARINALuis Armando PERERA MD Unavailable Unavailable DI KATHARINALuis Armando PERERA MD Unavailable Unavailable DI KATHARINALuis Armando PERERA MD Unavailable Unavailable DI KATHARINALuis Armando MD Unavailable Unavailable DI KATHARINALuis Armando PERERA MD Unavailable Unavailable DI KATHARINALuis Armando PERERA MD Unavailable Unavailable DI KATHARINALuis Armando MD Unavailable Unavailable TURNER KATHARINALuis Armando PERERA MD Unavailable Unavailable DI KATHARINALuis Armando PERERA MD Unavailable Unavailable DI KATHARINALuis Armando PERERA MD Unavailable Unavailable DI KATHARINALuis Armando MD Unavailable Unavailable DI KATHARINALuis Armando MD Unavailable Unavailable DI KATHARINA, Luis Armando ROSARIO MD Unavailable Unavailable DI KATHARINA, Luis Armando ROSARIO MD Unavailable Unavailable DI KATHARINA, Luis Armando ROSARIO MD Unavailable Unavailable DI KATHARINA, Luis Armando ROSARIO MD Unavailable Unavailable DI KATHARINA, Luis Armando ROSARIO MD Unavailable Unavailable Morrow, J Michelle RDH Unavailable Unavailable Morrow, J Michelle RDH Unavailable Unavailable Zeb, A Adrienne PHYSICIAN OBSTETRICIAN Unavailable Unavailable Zeb, A Adrienne PHYSICIAN OBSTETRICIAN Unavailable Unavailable Zeb, A Adrienne PHYSICIAN OBSTETRICIAN Unavailable Unavailable [place], A Adrienne PHYSICIAN OBSTETRICIAN Unavailable Unavailable Zeb, A Adrienne PHYSICIAN OBSTETRICIAN Unavailable Unavailable [place], A Adrienne PHYSICIAN OBSTETRICIAN Unavailable Unavailable [place], A Adrienne PHYSICIAN OBSTETRICIAN Unavailable Unavailable [place], A Adrienne PHYSICIAN OBSTETRICIAN Unavailable Unavailable [place], A Adrienne PHYSICIAN OBSTETRICIAN Unavailable Unavailable [place], A Adrienne PHYSICIAN OBSTETRICIAN Unavailable Unavailable Zeb, A Adrienne PHYSICIAN OBSTETRICIAN Unavailable Unavailable [place], A Adrienne PHYSICIAN OBSTETRICIAN Unavailable Unavailable Zeb, A Adrienne PHYSICIAN OBSTETRICIAN Unavailable Unavailable Zeb, A Adrienne PHYSICIAN OBSTETRICIAN Unavailable Unavailable [place], A Adrienne PHYSICIAN OBSTETRICIAN Unavailable Unavailable [place], A Adrienne PHYSICIAN OBSTETRICIAN Unavailable Unavailable Zeb, A Adrienne PHYSICIAN OBSTETRICIAN Unavailable Unavailable [place], A Adrienne PHYSICIAN OBSTETRICIAN Unavailable Unavailable [place], A Adrienne PHYSICIAN OBSTETRICIAN Unavailable Unavailable [place], A Adrienne PHYSICIAN OBSTETRICIAN Unavailable Unavailable [place], A Adrienne PHYSICIAN OBSTETRICIAN Unavailable Unavailable [place], A Adrienne PHYSICIAN OBSTETRICIAN Unavailable Unavailable [place], A Adrienne PHYSICIAN OBSTETRICIAN Unavailable Unavailable [place], A Adrienne PHYSICIAN OBSTETRICIAN Unavailable Unavailable [place], A Adrienne PHYSICIAN OBSTETRICIAN Unavailable Unavailable [place], A Adrienne PHYSICIAN OBSTETRICIAN Unavailable Unavailable Erlin WANG MD Unavailable Unavailable Erlin WANG MD Unavailable Unavailable Erlin WANG MD Unavailable Unavailable Erlin WANG MD Unavailable Unavailable Erlin WANG MD Unavailable Unavailable Erlin WANG MD Unavailable Unavailable Erlin WANG MD Unavailable Unavailable Erlin WANG MD Unavailable Unavailable Erlin WANG MD Unavailable Unavailable Erlin WANG MD Unavailable Unavailable Erlin WANG MD Unavailable Unavailable Erlin WANG MD Unavailable Unavailable Erlin WANG MD Unavailable Unavailable Erlin WANG MD Unavailable Unavailable Erlin WANG MD Unavailable Unavailable Erlin WANG MD Unavailable Unavailable Erlin WANG MD Unavailable Unavailable Erlin WANG MD Unavailable Unavailable Erlin WANG MD Unavailable Unavailable Erlin WANG MD Unavailable Unavailable Erlin WANG MD Unavailable Unavailable Erlin WANG MD Unavailable Unavailable Erlin WANG [place]UC[place] MD Unavailable Unavailable Erlin WANG [place] MD Unavailable Unavailable Erlin WANG [place] MD Unavailable Unavailable Erlin WANG [place] MD Unavailable Unavailable Erlin WANG [place]UC[place] MD Unavailable Unavailable Erlin WANG [place]UC[place] MD Unavailable Unavailable Erlin WANG [place]UC[place] MD Unavailable Unavailable Erlin WANG [place]UC[place] MD Unavailable Unavailable Erlin WANG [place]UC[place] MD Unavailable Unavailable Erlin WANG [place] MD Unavailable Unavailable Erlin WANG [place]UC[place] MD Unavailable Unavailable Erlin WANG [place]UC[place] MD Unavailable Unavailable Erlin WANG [place] MD Unavailable Unavailable Erlin WANG [place]UC[place] MD Unavailable Unavailable Erlin WANG [place]UC[place] MD Unavailable Unavailable Erlin WANG [place] MD Unavailable Unavailable Erlin WANG [place]UC[place] MD Unavailable Unavailable Erlin WANG [place]UC[place] MD Unavailable Unavailable Erlin WANG [place]UC[place] MD Unavailable Unavailable Erlin WANG [place]UC[place] MD Unavailable Unavailable Erlin WANG [place]UC[place] MD Unavailable Unavailable Erlin WANG [place]UC[place] MD Unavailable Unavailable Erlin WANG [place] MD Unavailable Unavailable Erlin WANG [place] MD Unavailable Unavailable Erlin WANG [place] MD Unavailable Unavailable Erlin WANG [place] MD Unavailable Unavailable Erlin WANG [place]UC[place] MD Unavailable Unavailable Erlin WANG MD Unavailable Unavailable Erlin WANG [place] MD Unavailable Unavailable Erlin WANG [place] MD Unavailable Unavailable Erlin WANG [place] MD Unavailable Unavailable Erlin WANG [place] MD Unavailable Unavailable Erlin WANG [place]UC[place] MD Unavailable Unavailable Erlin WANG [place] MD Unavailable Unavailable Erlin WANG [place] MD Unavailable Unavailable Erlin WANG [place] MD Unavailable Unavailable Erlin WANG [place] MD Unavailable Unavailable Erlin WANG [place] MD Unavailable Unavailable Erlin WANG [place] MD Unavailable Unavailable Erlin WANG [place] MD Unavailable Unavailable Erlin WANG [place] MD Unavailable Unavailable Erlin WANG [place] MD Unavailable Unavailable Erlin WANG MD Unavailable Unavailable Erlin WANG [place] MD Unavailable Unavailable Erlin WANG [place] MD Unavailable Unavailable Erlin WANG [place]UC[place] MD Unavailable Unavailable KATHLEEN E LUCILLE Unavailable Unavailable KATHLEEN E LUCILLE MD Unavailable Unavailable Erlin WANG [place]UC[place] Unavailable Unavailable KATHLEEN E LUCILLE Unavailable Unavailable Erlin WANG LUCILLE MD Unavailable Unavailable Ray, L Bernadine Unavailable Unavailable Ray, L Bernadine Unavailable Unavailable Ray, L Bernadine Unavailable Unavailable Ray, L Bernadine Unavailable Unavailable Ray, L Bernadine Unavailable Unavailable Ray, L Bernadine Unavailable Unavailable Ray, L Bernadine Unavailable Unavailable Ray, L Bernadine Unavailable Unavailable Ray, L Bernadine Unavailable Unavailable Ray, L Bernadine Unavailable Unavailable Ray, L Bernadine Unavailable Unavailable Ray, L Bernadine Unavailable Unavailable Ray, L Bernadine Unavailable Unavailable Ray, L Bernadine Unavailable Unavailable Ray, L Bernadine Unavailable Unavailable Ray, L Bernadine Unavailable Unavailable Ray, L Bernadine Unavailable Unavailable Ray, L Bernadine Unavailable Unavailable Ray, L Bernadine Unavailable Unavailable Ray, L Bernadine Unavailable Unavailable Ray, L Bernadine Unavailable Unavailable Ray, L Bernadine Unavailable Unavailable Ray, L Bernadine Unavailable Unavailable Ray, L Bernadine Unavailable Unavailable Ray, L Bernadine Unavailable Unavailable Ray, L Bernadine Unavailable Unavailable Ray, L Bernadine Unavailable Unavailable Ray, L Bernadine Unavailable Unavailable Ray, L Bernadine Unavailable Unavailable Ray, L Bernadine Unavailable Unavailable Ray, L Bernadine Unavailable Unavailable Ray, L Bernadine Unavailable Unavailable Ray, L Bernadine Unavailable Unavailable Ray, L Bernadine Unavailable Unavailable Ray, L Bernadine Unavailable Unavailable Ray, L Bernadine Unavailable Unavailable Ray, L Bernadine Unavailable Unavailable Ray, L Bernadine Unavailable Unavailable Ray, L Bernadine Unavailable Unavailable Ray, L Bernadine Unavailable Unavailable Ray, L Bernadine Unavailable Unavailable Ray, L Bernadine Unavailable Unavailable Ray, L Bernadine Unavailable Unavailable Ray, L Bernadine Unavailable Unavailable Ray, L Bernadine Unavailable Unavailable Ray, L Bernadine Unavailable Unavailable Ray, L Bernadine Unavailable Unavailable Ray, L Bernadine Unavailable Unavailable Ray, L Bernadine Unavailable Unavailable Ray, L Bernadine Unavailable Unavailable Ray, L Bernadine Unavailable Unavailable Ray, L Bernadine Unavailable Unavailable Ray, L Bernadine Unavailable Unavailable Ray, L Bernadine Unavailable Unavailable Ray, L Bernadine Unavailable Unavailable Ray, L Bernadine Unavailable Unavailable Ray, L Bernadine Unavailable Unavailable Ray, L Bernadine Unavailable Unavailable Ray, L Bernadine Unavailable Unavailable Ray, L Bernadine Unavailable Unavailable Ray, L Bernadine Unavailable Unavailable Ray, L Bernadine Unavailable Unavailable Ray, L Bernadine Unavailable Unavailable Ray, L Bernadine Unavailable Unavailable Ray, L Bernadine Unavailable Unavailable Ray, L Bernadine Unavailable Unavailable Ray, L Bernadine Unavailable Unavailable Ray, L Bernadine Unavailable Unavailable Ray, L Bernadine Unavailable Unavailable Ray, L Bernadine Unavailable Unavailable Ray, L Bernadine Unavailable Unavailable Ray, L Bernadine Unavailable Unavailable Ray, L Bernadine Unavailable Unavailable Ray, L Bernadine Unavailable Unavailable Ray, L Bernadine Unavailable Unavailable Erlin WANG MD Unavailable Unavailable Erlin WANG MD Unavailable Unavailable Erlin WANG MD Unavailable Unavailable Erlin WANG MD Unavailable Unavailable Erlin WANG MD Unavailable Unavailable Erlin WANG MD Unavailable Unavailable Erlin WANG MD Unavailable Unavailable Erlin WANG MD Unavailable Unavailable KATHLEEN, E LUCILLE Unavailable Unavailable KATHLEEN, E LUCILLE Unavailable Unavailable KATHLEEN, E LUCILLE MD Unavailable Unavailable KATHLEEN, E LUCILLE MD Unavailable Unavailable KATHLEEN, E LUCILLE Unavailable Unavailable KATHLEEN, E LUCILLE MD Unavailable Unavailable KATHLEEN, E LUCILLE MD Unavailable Unavailable KATHLEEN, E LUCILLE MD Unavailable Unavailable KATHLEEN, E LUCLILE MD Unavailable Unavailable KATHLEEN, E LUCILLE MD Unavailable Unavailable KATHLEEN, E LUCILLE MD Unavailable Unavailable KATHLEEN, E LUCILLE MD Unavailable Unavailable KATHLEEN, E LUCILLE Unavailable Unavailable KATHLEEN, E LUCILLE MD Unavailable Unavailable KATHLEEN, E LUCILLE MD Unavailable Unavailable KATHLEEN, E LUCILLE MD Unavailable Unavailable KATHLEEN, E LUCILLE MD Unavailable Unavailable KATHLEEN, E LUCILLE MD Unavailable Unavailable KATHLEEN, E LUCILLE MD Unavailable Unavailable KATHLEEN, E LUCILLE MD Unavailable Unavailable KATHLEEN, E LUCILLE Unavailable Unavailable KATHLEEN, E LUCILLE MD Unavailable Unavailable KATHLEEN, E LUCILLE MD Unavailable Unavailable KATHLEEN, E LUCILLE MD Unavailable Unavailable KATHLEEN, E LUCILLE Unavailable Unavailable KATHLEEN, E LUCILLE MD Unavailable Unavailable KATHLEEN, E LUCILLE Unavailable Unavailable KATHLEEN, E LUCILLE Unavailable Unavailable KATHLEEN, E LUCILLE Unavailable Unavailable KATHLEEN, E LUCILLE Unavailable Unavailable KATHLEEN, E LUCILLE MD Unavailable Unavailable KATHLEEN, E LUCILLE MD Unavailable Unavailable KATHLEEN, E LUCILLE Unavailable Unavailable KATHLEEN, E LUCILLE MD Unavailable Unavailable KATHLEEN, E LUCILLE Unavailable Unavailable KATHLEEN E LUCILLE Unavailable Unavailable KATHLEEN, E LUCILLE Unavailable Unavailable KATHLEEN, E LUCILLE Unavailable Unavailable KATHLEEN, E LUCILLE Unavailable Unavailable KATHLEEN, E LUCILLE Unavailable Unavailable KATHLEEN, E LUCILLE Unavailable Unavailable KATHLEEN, E LUCILLE Unavailable Unavailable KATHLEEN E LUCILLE Unavailable Unavailable KATHLEEN E LUCILLE Unavailable Unavailable KATHLEEN E LUCILLE Unavailable Unavailable KATHLEEN E LUCILLE Unavailable Unavailable KATHLEEN, E LUCILLE Unavailable Unavailable KATHLEEN, E LUCILLE Unavailable Unavailable KATHLEEN E LUCILLE Unavailable Unavailable KATHLEEN, E LUCILLE Unavailable Unavailable KATHLEEN, E LUCILLE Unavailable Unavailable KATHLEEN E LUCILLE Unavailable Unavailable KATHLEEN E LUCILLE Unavailable Unavailable KATHLEEN E LUCILLE Unavailable Unavailable KATHLEEN E LUCILLE Unavailable Unavailable KATHLEEN, E LUCILLE Unavailable Unavailable KATHLEEN E LUCILLE Unavailable Unavailable KATHLEEN E LUCILLE Unavailable Unavailable KATHLEEN, E LUCILLE Unavailable Unavailable KATHLEEN E LUCILLE Unavailable Unavailable KATHLEEN E LUCILLE Unavailable Unavailable KATHLEEN E LUCILLE Unavailable Unavailable KATHLEEN, E LUCILLE Unavailable Unavailable KATHLEEN, E LUCILLE MD Unavailable Unavailable Erlin WANG MD Unavailable Unavailable NELLY, 0000{ Unavailable Unavailable Pramod, A Jaida DDS Unavailable Unavailable Pramod, A Jaida DDS Unavailable Unavailable Pramod, A Jaida DDS Unavailable Unavailable Pramod, A Jaida DDS Unavailable Unavailable [id number], [id number] Unavailable MEDENT_[id number], [id number] Unavailable MEDENT_[id number], [id number] Unavailable MEDENT_[id number], [id number] Unavailable MEDENT_[id number], [id number] Unavailable Jewel PATEL MD Unavailable Unavailable AMANDA, Jewel CORTEZ MD Unavailable Unavailable AMANDA, Jewel CORTEZ MD Unavailable Unavailable AMANDA, Jewel CORTEZ MD Unavailable Unavailable AMANDA, Jewel CORTEZ MD Unavailable Unavailable AMANDA, Jewel CORTEZ MD Unavailable Unavailable AMANDA, Jewel CORTEZ MD Unavailable Unavailable AMANDA, Jewel CORTEZ MD Unavailable Unavailable AMANDA, Jewel CORTEZ MD Unavailable Unavailable AMANDA, Jewel CORTEZ MD Unavailable Unavailable AMANDA, Jewel CORTEZ MD Unavailable Unavailable AMANDA, Jewel CORTEZ MD Unavailable Unavailable AMANDA, Jewel CORTEZ MD Unavailable Unavailable AMANDA, Jewel CORTEZ MD Unavailable Unavailable AMANDA, Jewel CORTEZ MD Unavailable Unavailable AMANDA, Jewel CORTEZ MD Unavailable Unavailable AMANDA, Jewel CORTEZ MD Unavailable Unavailable AMANDA, Jewel CORTEZ MD Unavailable Unavailable AMANDA, Jewel CORTEZ MD Unavailable Unavailable AMANDA, Jewel CORTEZ MD Unavailable Unavailable AMANDA, Jewel CORTEZ MD Unavailable Unavailable AMANDA, Jewel CORTEZ MD Unavailable Unavailable AMANDA, Jewel CORTEZ MD Unavailable Unavailable AMANDA, Jewel CORTEZ MD Unavailable Unavailable AMANDA, Jewel CORTEZ MD Unavailable Unavailable AMANDA, Jewel CORTEZ MD Unavailable Unavailable AMANDA, Jewel CORTEZ MD Unavailable Unavailable AMANDA, Jewel CORTEZ MD Unavailable Unavailable AMANDA, Jewel CORTEZ MD Unavailable Unavailable AMANDA, Jewel CORTEZ MD Unavailable Unavailable AMANDA, Jewel CORTEZ MD Unavailable Unavailable AMANDA, Jewel CORTEZ MD Unavailable Unavailable AMANDA, Jewel CORTEZ MD Unavailable Unavailable AMANDA, Jewel CORTEZ MD Unavailable Unavailable AMANDA, Jewel CORTEZ MD Unavailable Unavailable AMANDA, Jewel CORTEZ MD Unavailable Unavailable AMANDAJewel BARRERA MD Unavailable Unavailable AMANDA, Jewel CORTEZ MD Unavailable Unavailable AMANDA, Jewel CORTEZ MD Unavailable Unavailable AMANDA, Jewel CORTEZ MD Unavailable Unavailable AMANDA, Jewel CORTEZ MD Unavailable Unavailable AMANDA, Jewel CORTEZ MD Unavailable Unavailable AMANDA, Jewel CORTEZ MD Unavailable Unavailable AMANDA, Jewel CORTEZ MD Unavailable Unavailable AMANDA, Jewel CORTEZ MD Unavailable Unavailable AMANDA, Jewel CORTEZ MD Unavailable Unavailable AMANDA, Jewel CORTEZ MD Unavailable Unavailable AMANDA, Jewel CORTEZ MD Unavailable Unavailable AMANDA, Jewel CORTEZ MD Unavailable Unavailable AMANDA, Jewel CORTEZ MD Unavailable Unavailable AMANDA, Jewel CORTEZ MD Unavailable Unavailable AMANDA, Jewel CORTEZ MD Unavailable Unavailable AMANDA, Jewel CORTEZ MD Unavailable Unavailable AMANDA, Jewel CORTEZ MD Unavailable Unavailable AMANDA, Jewel CORTEZ MD Unavailable Unavailable AMANDA, Jewel CORTEZ MD Unavailable Unavailable AMANDA, Jewel CORTEZ MD Unavailable Unavailable AMANDA, Jewel CORTEZ MD Unavailable Unavailable AMANDA, Jewel CORTEZ MD Unavailable Unavailable AMANDA, Jewel CORTEZ MD Unavailable Unavailable AMANDA, Jewel CORTEZ MD Unavailable Unavailable AMANDA, Jewel CORTEZ MD Unavailable Unavailable AMANDA, Jewel CORTEZ MD Unavailable Unavailable AMANDA, Jewel CORTEZ MD Unavailable Unavailable AMANDA, Jewel CORTEZ MD Unavailable Unavailable AMANDA, Jewel CORTEZ MD Unavailable Unavailable AMANDA, Jewel CORTEZ MD Unavailable Unavailable AMANDA, Jewel CORTEZ MD Unavailable Unavailable AMANDA, Jewel CORTEZ MD Unavailable Unavailable AMANDA, Jewel CORTEZ MD Unavailable Unavailable AMANDA, Jewel CORTEZ MD Unavailable Unavailable AMANDA, Jewel CORTEZ MD Unavailable Unavailable AMANDA, Jewel CORTEZ MD Unavailable Unavailable AMANDA, Jewel CORTEZ MD Unavailable Unavailable AMANDA, Jewel CORTEZ MD Unavailable Unavailable AMANDA, Jewel CORTEZ MD Unavailable Unavailable AMANDA, Jewel CORTEZ MD Unavailable Unavailable AMANDA, Jewel CORTEZ MD Unavailable Unavailable AMANDA, Jewel CORTEZ MD Unavailable Unavailable AMANDA, Jewel CORTEZ MD Unavailable Unavailable AMANDA, Jewel CORTEZ MD Unavailable Unavailable AMANDA, Jewel CORTEZ MD Unavailable Unavailable AMANDA, Jewel CORTEZ MD Unavailable Unavailable AMANDA, Jewel CORTEZ MD Unavailable Unavailable AMANDA, Jewel CORTEZ MD Unavailable Unavailable AMANDA, Jewel CORTEZ MD Unavailable Unavailable AMANDA, Jewel CORTEZ MD Unavailable Unavailable AMANDA, Jewel CORTEZ MD Unavailable Unavailable AMANDA, Jewel CORTEZ MD Unavailable Unavailable AMANDA, Jewel CORTEZ MD Unavailable Unavailable AMANDA, Jewel CORTEZ MD Unavailable Unavailable AMANDA, Jewel CORTEZ MD Unavailable Unavailable AMANDA, Jewel CORTEZ MD Unavailable Unavailable AMANDA, Jewel CORTEZ MD Unavailable Unavailable AMANDA, Jewel CORTEZ MD Unavailable Unavailable AMANDA, Jewel CORTEZ MD Unavailable Unavailable AMANDA, Jewel CORTEZ MD Unavailable Unavailable AMANDA, Jewel CORTEZ MD Unavailable Unavailable AMANDA, Jewel CORTEZ MD Unavailable Unavailable AMANDA, Jewel CORTEZ MD Unavailable Unavailable Kravec, Blaze MILITARY NURSE Unavailable Unavailable Kravec, Blaze MILITARY NURSE Unavailable Unavailable Kravec, Blaze MILITARY NURSE Unavailable Unavailable Kravec, Blaze MILITARY NURSE Unavailable Unavailable Kravec, Blaze MILITARY NURSE Unavailable Unavailable Kravec, Blaze MILITARY NURSE Unavailable Unavailable Kravec, Blaze MILITARY NURSE Unavailable Unavailable Ray, L Bernadine Unavailable Unavailable Ray, L Bernadine Unavailable Unavailable Ray, L Bernadine Unavailable Unavailable Ray, L Bernadine Unavailable Unavailable Ray, L Bernadine Unavailable Unavailable Ray, L Bernadine Unavailable Unavailable Ray, L Bernadine Unavailable Unavailable Ray, L Bernadine Unavailable Unavailable Ray, L Bernadine Unavailable Unavailable Ray, L Bernadine Unavailable Unavailable Ray, L Bernadine Unavailable Unavailable Ray, L Bernadine Unavailable Unavailable Ray, L Bernadine Unavailable Unavailable Ray, L Bernadine Unavailable Unavailable Ray, L Bernadine Unavailable Unavailable Ray, L Bernadine Unavailable Unavailable Ray, L Bernadine Unavailable Unavailable Ray, L Bernadine Unavailable Unavailable Ray, L Bernadine Unavailable Unavailable Ray, L Bernadine Unavailable Unavailable Ray, L Bernadine Unavailable Unavailable Ray, L Bernadine Unavailable Unavailable Ray, L Bernadine Unavailable Unavailable Ray, L Bernadine Unavailable Unavailable Ray, L Bernadine Unavailable Unavailable Ray, L Bernadine Unavailable Unavailable Ray, L Bernadine Unavailable Unavailable Ray, L Bernadine Unavailable Unavailable Ray, L Bernadine Unavailable Unavailable Ray, L Bernadine Unavailable Unavailable Ray, L Bernadine Unavailable Unavailable Ray, L Bernadine Unavailable Unavailable Ray, L Bernadine Unavailable Unavailable Ray, L Bernadine Unavailable Unavailable Ray, L Bernadine Unavailable Unavailable Ray, L Bernadine Unavailable Unavailable Ray, L Bernadine Unavailable Unavailable Ray, L Bernadine Unavailable Unavailable Ray, L Bernadine Unavailable Unavailable Ray, L Bernadine Unavailable Unavailable Ray, L Bernadine Unavailable Unavailable Ray, L Bernadine Unavailable Unavailable Ray, L Bernadine Unavailable Unavailable Ray, L Bernadine Unavailable Unavailable Ray, L Bernadine Unavailable Unavailable Ray, L Bernadine Unavailable Unavailable Ray, L Bernadine Unavailable Unavailable Ray, L Bernadine Unavailable Unavailable Ray, L Bernadine Unavailable Unavailable Ray, L Bernadine Unavailable Unavailable Ray, L Bernadine Unavailable Unavailable Ray, L Bernadine Unavailable Unavailable Ray, L Bernadine Unavailable Unavailable Ray, L Bernadine Unavailable Unavailable Ray, L Bernadine Unavailable Unavailable Ray, L Bernadine Unavailable Unavailable Ray, L Bernadine Unavailable Unavailable Ray, L Bernadine Unavailable Unavailable Ray, L Bernadine Unavailable Unavailable Ray, L Bernadine Unavailable Unavailable Ray, L Bernadine Unavailable Unavailable Ray, L Bernadine Unavailable Unavailable Ray, L Bernadine Unavailable Unavailable Ray, L Bernadine Unavailable Unavailable Ray, L Bernadine Unavailable Unavailable Ray, L Bernadine Unavailable Unavailable Ray, L Bernadnie Unavailable Unavailable Ray, L Bernadine Unavailable Unavailable Ray, L Bernadine Unavailable Unavailable Ray, L Bernadine Unavailable Unavailable Ray, L Bernadine Unavailable Unavailable Ray, L Bernadine Unavailable Unavailable Ray, L Bernadine Unavailable Unavailable Ray, L Bernadine Unavailable Unavailable Ray, L Bernadien Unavailable Unavailable Werangel, M Narcisa PHYSICIAN OBSTETRICIAN Unavailable Unavailable Werludwinman, M Narcisa PHYSICIAN OBSTETRICIAN Unavailable Unavailable Werangel, M Narcisa PHYSICIAN OBSTETRICIAN Unavailable Unavailable Werksman, M Narcisa PHYSICIAN OBSTETRICIAN Unavailable Unavailable Re-disclosure Warning The records that you are about to access may contain information from federally-assisted alcohol or drug abuse programs. If such information is present, then the following federally mandated warning applies: This information has been disclosed to you from records protected by federal confidentiality rules (42 CFR part 2). The federal rules prohibit you from making any further disclosure of this information unless further disclosure is expressly permitted by the written consent of the person to whom it pertains or as otherwise permitted by 42 CFR part 2. A general authorization for the release of medical or other information is NOT sufficient for this purpose. The Federal rules restrict any use of the information to criminally investigate or prosecute any alcohol or drug abuse patient.The records that you are about to access may contain highly sensitive health information, the redisclosure of which is protected by Article 27-F of the [facility] Public Health law. If you continue you may have access to information: Regarding HIV / AIDS; Provided by facilities licensed or operated by the [facility] Office of Mental Health; or Provided by the [facility] Office for People With Developmental Disabilities. If such information is present, then the following [facility] mandated warning applies: This information has been disclosed to you from confidential records which are protected by state law. State law prohibits you from making any further disclosure of this information without the specific written consent of the person to whom it pertains, or as otherwise permitted by law. Any unauthorized further disclosure in violation of state law may result in a fine or longterm sentence or both. A general authorization for the release of medical or other information is NOT sufficient authorization for further disc losure. Advance Directives Directive Description Configuration Management Architect Track Repairer Status Observation Descr iption Data Source(s) COVID Screening Performed completed COVI D Screening Performed [facility] ([facility]) packet given Pt Bill of Rights, Priv Prac, Ad Dir completed packet given Pt Bill of Rights, Priv Prac, Ad Dir [facility] ([facility]) Note: Pt declined AD packet Ebola Screening Performed completed Ebol a Screening Performed [facility] ([facility]) Note: Within the last month, have you tr aveled outside of the [place]? -NO Family History Family Member Name Family Member Gender Family Member Status Date o f Status Description Data Source(s) Unknown Male Problem [facility] ([facility]) Unknown Female Problem [facility] ([facility]) Encounters Encounter Providers Location Date Indications Data Source(s ) Outpatient Attender: DANA PATEL MD 05/23/2021 12:00:0 0 AM [facility] Outpatient Attender: 0000{ NELLY 03/28/2021 10:13:00 AM E DT [facility] Outpatient Attender: LUCILLE WANG MD 03/28/2021 10 :13:00 AM EDT ANNUAL BREAST EXAM [facility] ANNUAL BREAST EXAM Outpatient Attender: Marie Alvarado 03/05/2021 01:20:00 PM EDT [facility] ([facility]) Unknown<td ID="encounterTypeDescriptionI D0">AHR</td><td>Fabian Ordoñez PHYSICIAN OBSTETRICIAN</td><td>[facility]</td><td>02/22/2021</td><td>9:55AM</td><td>11:07AM</td><td><content ID="encounterDiagnosisID0-0">Routine History and Physical</content>, <content ID="encounterDiagnosisID0-1">Hyperlipidemia</content>, <content ID="encounterDiagnosisID0-2">Hypothyroidism</content>, <content ID="encounterDiagnosisID0-3">Nonorganic Sleep Apnea Obstructive</content>, <content ID="encounterDiagnosisID0-4">Obesity Morbid</content>, <content ID="encounterDiagnosisID0-5">Dermatitis</content></td> Attender: Fabian Ordoñez MILITARY NURSE [facility] 02/22/2021 09:55:00 AM EDT - 02/22/2021 11:07:37 AM EDT DermatitisRoutine History and PhysicalNonorganic Sleep Apnea ObstructiveObesity MorbidHyperlipidemiaHypothyroidism [facility] ([facility]) Dermatitis Routine History and Physical Nonorganic Sleep Apnea Obstructive Obesity Morbid Hyperlipidemia Hypothyroidism Outpatient Attender: Marie Alvarado 12/31/2020 11:20:00 AM EDT [facility] Outpatient Attender: LUCILLE WANG MD [facility] [place] 12/11/2020 10:00:00 AM EDT [facility] <td ID="encounterTypeDescriptionID0">Meggan rt Update</td><td>Bernadine Navarrete DO</td><td></td><td>12/05/2020</td><td>4:23PM</td><td>11:59PM</td><td></td>Unkno Attender: Bernadine Navarrete 12/05/2020 04:23:00 PM EDT - 12/05/2020 11:59:00 PM EDT [facility] ([facility]) Unknown<td ID="encounterTypeDescriptionI D0">Chart Update</td><td>Narcisa Lane NP</td><td></td><td>11/28/2020</td><td>2:23PM</td><td>11:59PM</td><td></td> Attender: Narcisa Lane NP 11/28/2020 02:23:00 PM EDT - 11/28/2020 11:59:00 PM EDT [facility] ([facility]) Outpatient Attender: Marie Alvarado 10/31/2020 01:20:00 PM EDT [facility] ([facility]) Outpatient Attender: MARLENE CAVAZOS MD [facility] [place] 10/31/2020 11:20:00 AM EDT [facility] Out[facility] Attender: Bernadine Navarrete 09/19/2020 01:30:00 PM EDT Lab [facility] <td ID="encounterTypeDescriptionID0">Acu te Follow-up Well</td><td>Bernadine Navarrete DO</td><td>[facility]</td><td>09/19/2020</td><td>12:54PM</td><td>1:27PM</td><td><content ID="encounterDiagnosisID0-0">Essential Hypertension</content></td>Outpatient Attender: Bernadine Navarrete [facility] 09/19/2020 12:54:00 PM EDT - 09/19/2020 01:27:57 PM EDT Essential Hypertension [facility] ([facility]) Essential Hypertension Outpatient<td ID="encounterTypeDescripti onID0">Acute Follow-up Well</td><td>Bernadine Navarrete DO</td><td>[facility]</td><td>09/06/2020</td><td>10:48AM</td><td>11:55AM</td><td><content ID="encounterDiagnosisID0-0">Essential Hypertension</content></td> Attender: Bernadine Navarrete [facility] 09/06/2020 10:48:00 AM EST - 09/06/2020 11:55:56 AM EST Essential Hypertension [facility] ([facility]) Essential Hypertension Outpatient Attender: Marie Alvarado 08/29/2020 10:20:00 AM EST [facility] ([facility]) <td ID="encounterTypeDescriptionID2">Chr onic Disease Follow-up</td><td>Bernadine Navarrete DO</td><td>[facility]</td><td>08/24/2020</td><td>9:15AM</td><td>10:14AM</td><td><content ID="encounterDiagnosisID2-0">Essential Hypertension</content>, <content ID="encounterDiagnosisID2-1">Hyperparathyroidism</content>, <content ID="encounterDiagnosisID2-2">Hypothyroidism</content>, <content ID="encounterDiagnosisID2-3">Nonorganic Sleep Apnea Obstructive</content>, <content ID="encounterDiagnosisID2-4">Obesity Morbid</content>, <content ID="encounterDiagnosisID2-5">Spinal Stenosis</content></td>Outpatient Attender: Bernadine Navarrete [facility] 08/24/2020 09:15:00 AM EST - 08/24/2020 10:14:44 AM EST Nonorganic Sleep Apnea ObstructiveNonorg anic Sleep Apnea ObstructiveNonorganic Sleep Apnea ObstructiveNonorganic Sleep Apnea ObstructiveSpinal StenosisSpinal StenosisSpinal StenosisSpinal StenosisObesity MorbidEssential HypertensionObesity MorbidEssential HypertensionObesity MorbidEssential HypertensionObesity MorbidEssential HypertensionHyperparathyroidismHyperparathyroidismHyperparathyroidismHyperparath yroidismHypothyroidismHypothyroidismHypothyroidismHypothyroidism [facility] ([facility]) Nonorganic Sleep Apnea Obstructive Nonorganic Sleep Apnea Obstructive Nonorganic Sleep Apnea Obstructive Nonorganic Sleep Apnea Obstructive Spinal Stenosis Spinal Stenosis Spinal Stenosis Spinal Stenosis Obesity Morbid [facility] Hypertension Obesity Morbid Ess[facility] Hypertension Obesity Morbid Essential Hypertension Obesity Morbid Essential Hypertension Hyperparathyroidism Hyperparathyroidism Hyperparathyroidism Hyperparathyroidism Hypothyroidism Hypothyroidism Hypothyroidism Hypothyroidism <td ID="encounterTypeDescriptionID1">Meggan rt Update</td><td>Bernadine Navarrete DO</td><td></td><td>09/03/2020</td><td>08/24/2020 8:44AM</td><td>08/24/2020 11:59PM</td><td></td>Unknown Attender: Bernadine Navarrete 08/24/2020 08:44:00 AM EST - 08/24/2020 11:59:00 PM EST [facility]) Outpatient Attender: Bernadine Navarrete 08/16/2020 11:36:00 AM EST lab [facility] lab Outpatient Attender: MARLENE CAVAZOS MD [facility] [place] 06/07/2020 12:40:00 PM EST [facility] ([facility] Outpatient Attender: Marie Alvarado 06/07/2020 10:20:00 AM EST [facility] ([facility]) <td ID="encounterTypeDescriptionID3">D D ental Office Visit - 30</td><td>Jaida Benavidez DDS</td><td>[facility]</td><td>05/17/2020</td><td>1:36PM</td><td>2:23PM</td><td></td>Unknown Attender: Jaida Benavidez DDS [facility] 05/17/2020 01:36:00 PM EST - 05/17/2020 02:23:00 PM EST [facility]) Unknown<td ID="encounterTypeDescriptionI D4">H Adult Prophy</td><td>Michelle Gupta [facility]</td><td>[facility]</td><td>05/01/2020</td><td>11:25AM</td><td>2:21PM</td><td></td> Attender: Michelle Gupta [facility] 05/01/2020 11:25:00 AM EDT - 05/01/2020 02:21:00 PM EDT [facility]) Unknown<td ID="encounterTypeDescriptionI D5">[Patient Encounter]</td><td></td><td></td><td>05/01/2020</td><td>12:00AM</td><td>11:59PM< 05/01/2020 12:00:00 AM EDT - 05/01/2020 1 1:59:00 PM EDT [facility] ([facility]) Unknown<td ID="encounterTypeDescriptionI D6">D Dental Office Visit - 30</td><td>Dental Resident DDS</td><td>[facility]</td><td>04/25/2020</td><td>9:51AM</td><td>11:12AM</td><td></td> Attender: [phone] [id number] 04/25/2020 09:51:00 AM EDT - 04/25/2020 11:12:00 AM EDT [facility]) Unknown<td ID="encounterTypeDescriptionI D7">D Emergency-New</td><td>Dental Resident DDS</td><td>[facility]</td><td>04/16/2020</td><td>12:37PM</td><td>1:48PM</td><td></td> Attender: [phone] [id number] 04/16/2020 12:37:00 PM EDT - 04/16/2020 01:48:00 PM EDT [facility]) Outpatient Attender: Marie Joya NP [place] 04/09/2020 02:20:00 PM EDT [facility] ([facility]) Unknown<td ID="encounterTypeDescriptionI D9">Chart Update</td><td>Adrienne Carrington NP</td><td></td><td>03/14/2020</td><td>02/10/2020 11:44AM</td><td>02/10/2020 11:59PM</td><td></td> Attender: Adrienne Carrington NP 03/14/2020 11 :44:00 AM EDT - 02/10/2020 11:59:00 PM EDT [facility]) Outpatient Attender: LUCILLE WANG MD [facility] [place] 03/13/2020 11:00:00 AM EDT [facility] ([facility]) Outpatient Attender: 0000{ [place] 03/13/2020 09:48:00 AM E DT [facility] Outpatient Attender: LUCILLE WANG MD 03/13/2020 09 :48:00 AM EDT ANNUAL BREAST EXAM [facility] ANNUAL BREAST EXAM Immunizations Vaccine Date Status Description Data Source(s) COVID-19 VACCINE Moderna 04/03/2021 12:00:00 AM EDT completed [facility] Vaccine Series Complete: YESThis Data wa s Submitted to [facility] Via [employer]. Tdap 02/22/2021 11:08:00 AM EDT completed <td ID="Libulxwuvrqtt-Uubftjiwoqj-RX4">Boostrix</td><td ID="ImmunizationDose- 0">2</td><td>02/22/2021</td><td ID="Akosoeenrcrgm-RbvdgIqyj-NP5">Left Deltoid</td><td></td><td ID="Rvynmobpodnfk-Zwttiw-MN1">Complete (Administered)</td><td>[facility]</td><td ID="Xbhljsnydafun-Gwtrz-Quii-Comment-ID0"></td> [facility] ([facility]) COVID-19 VACCINE Moderna 09/17/2020 12:00:00 AM EDT completed [facility] Vaccine Series Complete: YESThis Data wa s Submitted to [facility] Via [employer]. COVID-19 VACCINE, MRNA-1273, LNP-S (MODERNA)/PF 09/17/2020 1 2:00:00 AM EDT completed [facility] Moderna COVID-19 08/17/2020 09:36:00 AM EST completed <td ID="Mivmojtqabtov-Vxjgwajqwab-BU10">Moderna COVID-19</td><td ID="ImmunizationDose-15">1</td><td>08/17/2020</td><td ID="Nkaobjmonhela-ZcqtvZmim-BN22"></td><td></td><td ID="Auhkhjcdfflbj-Ayilwr-TU68">Complete (Reported)</td><td>Patient</td><td ID="Dpnklhapyllwx-Vhnzs-Ttzs-Comment-ID15"></td> [facility] ([facility]) COVID-19 VACCINE Moderna 08/17/2020 12:00:00 AM EST completed [facility] Vaccine Series Complete: NOThis Data was Submitted to [facility] Via [employer]. COVID-19 VACCINE, MRNA-1273, LNP-S (MODERNA)/PF 08/17/2020 1 2:00:00 AM EST completed [facility] Influenza, high dose seasonal 04/05/2020 03:10:00 PM EDT complet ed <td ID="Yxgorynjgyzgp-Ytqesyxptyp-AL99">Influenza, high-dose (over 65)</td><td ID="ImmunizationDose-14">4</td><td>04/05/2020</td><td ID="Ckxiqqduwilbz-SzygoLgzb-GL38"></td><td></td><td ID="Tuuiqkusavshy-Itnmyh-FK55">Complete (Reported)</td><td>Patient</td><td ID="Qgtwprlmacmmb-Phtvm-Mfye-Comment-ID14"></td> [facility] ([facility]) INFLUENZA VACCINE QUADRIVALENT (65 YR UP)/MF59 C.1/PF 04/05/2020 12:00:00 AM EDT completed [facility] Medications Medication Brand Name Start Date Product Form Dose Route Admi nistrative Instructions Pharmacy Instructions Status Indications Reaction Description Data Source(s) 240 mcg/0.7 mL 05/07/2021 12:00:00 AM EDT syringe 0 DIRECTED DIRECTED SOLD: 05/07/2021 [facility] Hydrocortisone 10 MG/ML / Neomycin 3.5 M G/ML / Polymyxin B 56638 UNT/ML Otic Solution 3.5-10,000-1 mg/mL-unit/mL-% NEOMYCIN/POLYMYXIN B/HYDROCORT 04/30/2021 12:00:00 AM EDT solution 10 INSTILL 3 DROPS IN THE RIGHT EAR TWO TIMES A DAY FOR 10 DAYS INSTILL 3 DROPS IN THE RIGHT EAR TWO TIMES A DAY FOR 1 0 DAYS SOLD: 04/30/2021 [facility] 500 mg 04/08/2021 12:00:00 AM EDT capsule 30 TAKE ONE CAPSULE BY MOUTH EVERY 8 HOURS UNTIL GONE TAKE ONE CAPSULE BY MOUTH EVERY 8 HOURS UNTIL GONE [facility] 100 mcg/0.5 mL 04/03/2021 12:00:00 AM EDT suspension 0 INJECT DIRECTED (THIRD DOSE) INJECT DIRECTED (THIRD DOSE) SOLD: 04/03/2021 [facility] 180 mg 03/17/2021 12:00:00 AM EDT capsule,extended releas e 24 hr 60 TAKE TWO CAPSULES BY MOUTH EVERY MORNING TAKE TWO CAPSULES BY MOUTH EVERY MORNING SOLD: 03/18/2021 [facility] 180 mg 03/17/2021 12:00:00 AM EDT capsule,extended releas e 24 hr 60 TAKE TWO CAPSULES BY MOUTH EVERY MORNING TAKE TWO CAPSULES BY MOUTH EVERY MORNING SOLD: 04/16/2021 [facility] 24 HR Diltiazem Hydrochloride 180 MG Ext ended Release Oral Capsule dilTIAZem HCl ER Beads 180 MG Oral Capsule Extended Release 24 Hour dilTIAZem HCl ER Beads 180 MG Oral Capsule Extended Release 24 Hour 02/22/2021 12:00:00 AM EDT 2 active 24 HR diltiazem hydrochloride 18 0 MG Extended Release Oral Capsule [facility] Nystatin 100 UNT/MG Topical Powder Nystatin 803975 UNI T/GM External Powder Nystatin 882841 UNIT/GM External Powder 02/22/2021 12:00:00 AM EDT active nystatin 100 UNT/MG Topical Powd er [facility] ([facility]) 200 ACTUAT Albuterol 0.09 MG/ACTUAT Mete red Dose Inhaler [Ventolin] Ventolin HFA 108 (90 Base) MCG/ACT Inhalation Aerosol Solution Ventolin HFA 108 (90 Base) MCG/ACT Inhalation Aerosol Solution 02/22/2021 12:00:00 AM EDT active [id number] 200 ACTUAT albuter ol 0.09 MG/ACTUAT Metered Dose Inhaler [Ventolin] [facility] ([facility]) Nystatin 052210 UNT/ML Topical Cream Nystatin 621255 U NIT/GM External Cream Nystatin 755077 UNIT/GM External Cream 02/22/2021 12:00:00 AM EDT active nystatin 509426 UNT/ML Topical C ream [facility] ([facility]) 50 mg 02/22/2021 12:00:00 AM EDT tablet 30 TAKE ONE TABLET BY MOUTH EVERY DAY TAKE ONE TABLET BY MOUTH EVERY DAY SOLD: 05/03/2021 [facility] 100,000 unit/gram 02/22/2021 12:00:00 AM EDT cream 15 APPLY TOPICALLY UNDER BREASTS TWO TIMES A DAY NEEDED APPLY TOPICALLY UNDER BREASTS TWO TIMES A DAY NEEDED SOLD: 02/22/2021 [facility] 300 mg 02/22/2021 12:00:00 AM EDT capsule 90 TAKE ONE CAPSULE BY MOUTH THREE TIMES A DAY TAKE ONE CAPSULE BY MOUTH THREE TIMES A DAY SOLD: 02/22/2021 [facility] 90 mcg/actuation 02/22/2021 12:00:00 AM EDT HFA aerosol inha ler 6 INHALE TWO PUFFS BY MOUTH EVERY 4 HOURS NEEDED FOR SHORTNESS OF BREATH /WHEEZING/COUGH INHALE TWO PUFFS BY MOUTH EVERY 4 HOURS NEEDED FOR SHORTNESS OF BREATH /WHEEZING/COUGH SOLD: 02/22/2021 [facility] N[facility]atin 100 UNT/MG Topical Powder 100,000 unit/gram [facility] N 02/22/2021 12:00:00 AM EDT powder 15 APPLY TOPICALLY UNDER BREASTS TWO TIMES A DAY NEEDED APPLY TOPICALLY UNDER BREASTS TWO TIMES A DAY NEEDED SOLD : 02/22/2021 [facility] 50 mg 02/22/2021 12:00:00 AM EDT tablet 30 TAKE ONE TABLET BY MOUTH EVERY DAY TAKE ONE TABLET BY MOUTH EVERY DAY SOLD: 02/22/2021 [facility] gabapentin 300 MG Oral Capsule Gabapentin 300 MG Oral Capsule Gabapentin 300 MG Oral Capsule 02/22/2021 12:00:00 AM EDT 1 activ e gabapentin 300 MG Oral Capsule [facility] ([facility]) Spironolactone 50 MG Oral Tablet Spironolactone 50 MG Oral T ablet 02/22/2021 12:00:00 AM EDT 1 active spironol actone 50 MG Oral Tablet [facility] ([facility]) Losartan Potassium 100 MG Oral Tablet Losartan Potassium 100 MG Oral Tablet 02/22/2021 12:00:00 AM EDT 1 active losartan potassium 100 MG Oral Tablet [facility] ([facility]) 100 mcg 01/13/2021 12:00:00 AM EDT tablet 90 TAKE ONE TABLET BY MOUTH EVERY DAY TAKE ONE TABLET BY MOUTH EVERY DAY SOLD: 01/14/2021 [facility] 100 mcg 01/13/2021 12:00:00 AM EDT tablet 90 TAKE ONE TABLET BY MOUTH EVERY DAY TAKE ONE TABLET BY MOUTH EVERY DAY SOLD: 04/23/2021 [facility] Cpap 12/31/2020 12:00:00 AM EDT active [facility] ([facility]) Baclofen 10 MG Oral Tablet Baclofen 10 MG Oral Tablet 2020 12:00:00 AM EDT active baclofen 10 MG Or al Tablet [facility] ([facility]) 100 mg 12/12/2020 12:00:00 AM EDT capsule 90 TAKE ONE CAPSULE BY MOUTH EVERY MORNING AND AT BEDTIME MAXIMUM DAILY DOSE = 2 - TAKE 300MG CAPSULE EVERY AFTERNOON TAKE ONE CAPSULE BY MOUTH EVERY MORNING AND AT BEDTIME MAXIMUM DAILY DOSE = 2 - TAKE 300MG CAPSULE EVERY AFTERNOON SOLD: 12/13/2020 [facility] Baclofen 10 MG Oral Tablet Baclofen 12/12/2020 12:00:00 AM EDT ORAL active [facility] ([facility]) gabapentin 100 MG Oral Capsule Gabapentin 12/12/2020 12:00:00 AM EDT active [facility] ([facility]) 10 mg 12/12/2020 12:00:00 AM EDT tablet 90 TAKE ONE TABLET BY MOUTH TWICE A DAY MAXIMUM DAILY DOSE = 2 TAKE ONE TABLET BY MOUTH TWICE A DAY MAX IMUM DAILY DOSE = 2 SOLD: 03/08/2021 [facility] 10 mg 12/12/2020 12:00:00 AM EDT tablet 90 TAKE ONE TABLET BY MOUTH TWICE A DAY MAXIMUM DAILY DOSE = 2 TAKE ONE TABLET BY MOUTH TWICE A DAY MAX IMUM DAILY DOSE = 2 SOLD: 12/13/2020 [facility] 100 mg 11/03/2020 12:00:00 AM EDT tablet 30 TAKE ONE TABLET BY MOUTH EVERY DAY TAKE ONE TABLET BY MOUTH EVERY DAY SOLD: 02/11/2021 [facility] 100 mg 11/03/2020 12:00:00 AM EDT tablet 30 TAKE ONE TABLET BY MOUTH EVERY DAY TAKE ONE TABLET BY MOUTH EVERY DAY SOLD: 11/05/2020 [facility] 100 mg 11/03/2020 12:00:00 AM EDT tablet 30 TAKE ONE TABLET BY MOUTH EVERY DAY TAKE ONE TABLET BY MOUTH EVERY DAY SOLD: 03/13/2021 [facility] 100 mg 11/03/2020 12:00:00 AM EDT tablet 30 TAKE ONE TABLET BY MOUTH EVERY DAY TAKE ONE TABLET BY MOUTH EVERY DAY SOLD: 01/14/2021 [facility] 100 mg 11/03/2020 12:00:00 AM EDT tablet 30 TAKE ONE TABLET BY MOUTH EVERY DAY TAKE ONE TABLET BY MOUTH EVERY DAY SOLD: 04/11/2021 [facility] 100 mg 11/03/2020 12:00:00 AM EDT tablet 30 TAKE ONE TABLET BY MOUTH EVERY DAY TAKE ONE TABLET BY MOUTH EVERY DAY SOLD: 12/10/2020 [facility] meloxicam 7.5 MG Oral Tablet MELOXICAM 10/08/2020 12:00:00 AM EDT tabl et 180 TAKE ONE TABLET BY MOUTH TWICE A DAY TAKE ONE TABLET BY MOUTH TWICE A DAY SOLD: 10/10/2020 [facility] meloxicam 7.5 MG Oral Tablet MELOXICAM 10/08/2020 12:00:00 AM EDT tabl et 180 TAKE ONE TABLET BY MOUTH TWICE A DAY TAKE ONE TABLET BY MOUTH TWICE A DAY SOLD: 01/20/2021 [facility] meloxicam 7.5 MG Oral Tablet MELOXICAM 10/08/2020 12:00:00 AM EDT tabl et 180 TAKE ONE TABLET BY MOUTH TWICE A DAY TAKE ONE TABLET BY MOUTH TWICE A DAY SOLD: 04/16/2021 [facility] 50 mg 09/20/2020 12:00:00 AM EDT tablet 30 TAKE ONE TABLET BY MOUTH EVERY DAY TAKE ONE TABLET BY MOUTH EVERY DAY SOLD: 09/21/2020 [facility] 50 mg 09/20/2020 12:00:00 AM EDT tablet 30 TAKE ONE TABLET BY MOUTH EVERY DAY TAKE ONE TABLET BY MOUTH EVERY DAY SOLD: 12/31/2020 [facility] 50 mg 09/20/2020 12:00:00 AM EDT tablet 30 TAKE ONE TABLET BY MOUTH EVERY DAY TAKE ONE TABLET BY MOUTH EVERY DAY SOLD: 10/22/2020 [facility] 50 mg 09/20/2020 12:00:00 AM EDT tablet 30 TAKE ONE TABLET BY MOUTH EVERY DAY TAKE ONE TABLET BY MOUTH EVERY DAY SOLD: 01/31/2021 [facility] 50 mg 09/20/2020 12:00:00 AM EDT tablet 30 TAKE ONE TABLET BY MOUTH EVERY DAY TAKE ONE TABLET BY MOUTH EVERY DAY SOLD: 12/03/2020 [facility] 50 mg 09/20/2020 12:00:00 AM EDT tablet 30 TAKE ONE TABLET BY MOUTH EVERY DAY TAKE ONE TABLET BY MOUTH EVERY DAY SOLD: 04/03/2021 [facility] Spironolactone 50 MG Oral Tablet Spironolactone 50 MG Oral T ablet 09/19/2020 12:00:00 AM EDT 1 active spironol actone 50 MG Oral Tablet [facility] ([facility]) Losartan Potassium 100 MG Oral Tablet Losartan Potassium 100 MG Oral Tablet 09/19/2020 12:00:00 AM EDT 1 active losartan potassium 100 MG Oral Tablet [facility] ([facility]) 180 mg 09/12/2020 12:00:00 AM EST capsule,extended releas e 24 hr 60 TAKE TWO CAPSULES BY MOUTH EVERY MORNING TAKE TWO CAPSULES BY MOUTH EVERY MORNING SOLD: 09/19/2020 [facility] 180 mg 09/12/2020 12:00:00 AM EST capsule,extended releas e 24 hr 60 TAKE TWO CAPSULES BY MOUTH EVERY MORNING TAKE TWO CAPSULES BY MOUTH EVERY MORNING SOLD: 01/20/2021 [facility] 180 mg 09/12/2020 12:00:00 AM EST capsule,extended releas e 24 hr 60 TAKE TWO CAPSULES BY MOUTH EVERY MORNING TAKE TWO CAPSULES BY MOUTH EVERY MORNING SOLD: 12/03/2020 [facility] 180 mg 09/12/2020 12:00:00 AM EST capsule,extended releas e 24 hr 60 TAKE TWO CAPSULES BY MOUTH EVERY MORNING TAKE TWO CAPSULES BY MOUTH EVERY MORNING SOLD: 02/18/2021 [facility] 180 mg 09/12/2020 12:00:00 AM EST capsule,extended releas e 24 hr 60 TAKE TWO CAPSULES BY MOUTH EVERY MORNING TAKE TWO CAPSULES BY MOUTH EVERY MORNING SOLD: 11/05/2020 [facility] 180 mg 09/12/2020 12:00:00 AM EST capsule,extended releas e 24 hr 60 TAKE TWO CAPSULES BY MOUTH EVERY MORNING TAKE TWO CAPSULES BY MOUTH EVERY MORNING SOLD: 12/31/2020 [facility] 24 HR Diltiazem Hydrochloride 180 MG Ext ended Release Oral Capsule dilTIAZem HCl ER Beads 180 MG Oral Capsule Extended Release 24 Hour dilTIAZem HCl ER Beads 180 MG Oral Capsule Extended Release 24 Hour 09/06/2020 12:00:00 AM EST 2 active 24 HR diltiazem hydrochlorid e 180 MG Extended Release Oral Capsule [facility] ([facility]) Losartan Potassium 100 MG Oral Tablet Losartan Potassium 100 MG Oral Tablet 09/06/2020 12:00:00 AM EST 1 active losartan potassium 100 MG Oral Tablet [facility] ([facility]) Spironolactone 25 MG Oral Tablet Spironolactone 25 MG Oral T ablet 09/06/2020 12:00:00 AM EST 1 active spironol actone 25 MG Oral Tablet [facility] ([facility]) 100 mg 09/06/2020 12:00:00 AM EST tablet 30 TAKE ONE TABLET BY MOUTH EVERY DAY TAKE ONE TABLET BY MOUTH EVERY DAY SOLD: 09/06/2020 [facility] 25 mg 09/06/2020 12:00:00 AM EST tablet 30 TAKE ONE TABLET BY MOUTH EVERY MORNING TAKE ONE TABLET BY MOUTH EVERY MORNING SOLD: 09/06/2020 [facility] 50 mg 08/24/2020 12:00:00 AM EST tablet 90 TAKE ONE TABLET BY MOUTH EVERY DAY TAKE ONE TABLET BY MOUTH EVERY DAY SOLD: 08/25/2020 [facility] Cyclobenzaprine hydrochloride 10 MG Oral Tablet CYCLOBENZAPR INE HCL 08/24/2020 12:00:00 AM EST tablet 90 TAKE ONE TABLET BY MOUTH AT BEDTIME TAKE ONE TABLET BY MOUTH AT BEDTIME SOLD: 08/25/2020 [facility] Losartan Potassium 100 MG Oral Tablet Losartan Potassium 100 MG Oral Tablet 08/24/2020 12:00:00 AM EST 1 aborted losartan potassium 100 MG Oral Tablet [facility] ([facility]) Losartan Potassium 50 MG Oral Tablet Losartan Potassium 50 M G Oral Tablet 08/24/2020 12:00:00 AM EST 1 aborted losartan potassium 50 MG Oral Tablet [facility] ([facility]) Cyclobenzaprine hydrochloride 10 MG Oral Tablet CYCLOBENZAPR INE HCL 08/24/2020 12:00:00 AM EST tablet 90 TAKE ONE TABLET BY MOUTH AT BEDTIME TAKE ONE TABLET BY MOUTH AT BEDTIME SOLD: 12/10/2020 [facility] meloxicam 7.5 MG Oral Tablet [Mobic] Mobic 7.5 MG Oral Tablet Mobic 7.5 MG Oral Tablet 08/24/2020 12:00:00 AM EST 1 active meloxicam 7.5 MG Oral Tablet [Mobic] [facility]) Cyclobenzaprine hydrochloride 10 MG Oral Tablet Cyclobenzaprine HCl 10 MG Oral Tablet Cyclobenzaprine HCl 10 MG Oral Tablet 08/24/2020 12:00:00 AM EST 1 active cyclobenzaprine hydrochlorid e 10 MG Oral Tablet [facility] ([facility]) 180 mg 08/21/2020 12:00:00 AM EST capsule,extended releas e 24 hr 60 TAKE ONE CAPSULE BY MOUTH TWICE A DAY TAKE ONE CAPSULE BY MOUTH TWICE A DAY SOLD: 08/21/2020 [facility] 24 HR Diltiazem Hydrochloride 180 MG Ext ended Release Oral Capsule dilTIAZem HCl ER [facility]eads 180 MG Oral Capsule Extended Release 24 Hour dilTIAZem HCl ER [facility] 180 MG Oral Capsule Extended Release 24 Hour 08/21/2020 12:00:00 AM EST 1 aborted 24 HR diltiazem hydrochloride 180 MG Extended Release Oral Capsule [facility] ([facility]) 300 mg 07/18/2020 12:00:00 AM EST capsule 90 TAKE ONE CAPSULE BY MOUTH THREE TIMES A DAY TAKE ONE CAPSULE BY MOUTH THREE TIMES A DAY SOLD: 12/10/2020 [facility] 300 mg 07/18/2020 12:00:00 AM EST capsule 90 TAKE ONE CAPSULE BY MOUTH THREE TIMES A DAY TAKE ONE CAPSULE BY MOUTH THREE TIMES A DAY SOLD: 10/22/2020 [facility] 300 mg 07/18/2020 12:00:00 AM EST capsule 90 TAKE ONE CAPSULE BY MOUTH THREE TIMES A DAY TAKE ONE CAPSULE BY MOUTH THREE TIMES A DAY SOLD: 09/10/2020 [facility] 300 mg 07/18/2020 12:00:00 AM EST capsule 90 TAKE ONE CAPSULE BY MOUTH THREE TIMES A DAY TAKE ONE CAPSULE BY MOUTH THREE TIMES A DAY SOLD: 04/11/2021 [facility] 300 mg 07/18/2020 12:00:00 AM EST capsule 90 TAKE ONE CAPSULE BY MOUTH THREE TIMES A DAY TAKE ONE CAPSULE BY MOUTH THREE TIMES A DAY SOLD: 07/19/2020 [facility] 300 mg 07/18/2020 12:00:00 AM EST capsule 90 TAKE ONE CAPSULE BY MOUTH THREE TIMES A DAY TAKE ONE CAPSULE BY MOUTH THREE TIMES A DAY SOLD: 01/20/2021 [facility] gabapentin 300 MG Oral Capsule Gabapentin 300 MG Oral Capsule Gabapentin 300 MG Oral Capsule 07/17/2020 12:00:00 AM EST 1 activ e gabapentin 300 MG Oral Capsule [facility] ([facility]) 300 mg 03/15/2020 12:00:00 AM EDT capsule 90 TAKE ONE CAPSULE BY MOUTH THREE TIMES A DAY TAKE ONE CAPSULE BY MOUTH THREE TIMES A DAY SOLD: 06/15/2020 [facility] 300 mg 03/15/2020 12:00:00 AM EDT capsule 90 TAKE ONE CAPSULE BY MOUTH THREE TIMES A DAY TAKE ONE CAPSULE BY MOUTH THREE TIMES A DAY SOLD: 04/23/2020 [facility] 300 mg 03/15/2020 12:00:00 AM EDT capsule 90 TAKE ONE CAPSULE BY MOUTH THREE TIMES A DAY TAKE ONE CAPSULE BY MOUTH THREE TIMES A DAY SOLD: 03/17/2020 [facility] gabapentin 300 MG Oral Capsule Gabapentin 300 MG Oral Capsule Gabapentin 300 MG Oral Capsule 03/14/2020 12:00:00 AM EDT 1 abort ed gabapentin 300 MG Oral Capsule [facility] ([facility]) 180 mg 02/20/2020 12:00:00 AM EDT capsule,extended releas e 24 hr 60 TAKE ONE CAPSULE BY MOUTH TWICE A DAY TAKE ONE CAPSULE BY MOUTH TWICE A DAY SOLD: 06/20/2020 [facility] 180 mg 02/20/2020 12:00:00 AM EDT capsule,extended releas e 24 hr 60 TAKE ONE CAPSULE BY MOUTH TWICE A DAY TAKE ONE CAPSULE BY MOUTH TWICE A DAY SOLD: 04/23/2020 [facility] 180 mg 02/20/2020 12:00:00 AM EDT capsule,extended releas e 24 hr 60 TAKE ONE CAPSULE BY MOUTH TWICE A DAY TAKE ONE CAPSULE BY MOUTH TWICE A DAY SOLD: 05/23/2020 [facility] 180 mg 02/20/2020 12:00:00 AM EDT capsule,extended releas e 24 hr 60 TAKE ONE CAPSULE BY MOUTH TWICE A DAY TAKE ONE CAPSULE BY MOUTH TWICE A DAY SOLD: 03/21/2020 [facility] 180 mg 02/20/2020 12:00:00 AM EDT capsule,extended releas e 24 hr 60 TAKE ONE CAPSULE BY MOUTH TWICE A DAY TAKE ONE CAPSULE BY MOUTH TWICE A DAY SOLD: 07/18/2020 [facility] 24 HR Diltiazem Hydrochloride 180 MG Ext ended Release Oral Capsule dilTIAZem HCl ER [facility] 180 MG Oral Capsule Extended Release 24 Hour dilTIAZem HCl ER [facility] 180 MG Oral Capsule Extended Release 24 Hour 02/10/2020 12:00:00 AM EDT 1 aborted 24 HR diltiazem hydrochloride 180 MG Extended Release Oral Capsule [facility] ([facility]) gabapentin 300 MG Oral Capsule Gabapentin 300 MG Oral Capsule Gabapentin 300 MG Oral Capsule 01/21/2020 12:00:00 AM EDT 1 abort ed gabapentin 300 MG Oral Capsule [facility] ([facility]) 100 mcg 01/02/2020 12:00:00 AM EDT tablet 90 TAKE ONE TABLET BY MOUTH EVERY DAY TAKE ONE TABLET BY MOUTH EVERY DAY SOLD: 07/16/2020 [facility] 100 mcg 01/02/2020 12:00:00 AM EDT tablet 90 TAKE ONE TABLET BY MOUTH EVERY DAY TAKE ONE TABLET BY MOUTH EVERY DAY SOLD: 04/16/2020 [facility] 100 mcg 01/02/2020 12:00:00 AM EDT tablet 90 TAKE ONE TABLET BY MOUTH EVERY DAY TAKE ONE TABLET BY MOUTH EVERY DAY SOLD: 10/10/2020 [facility] meloxicam 7.5 MG Oral Tablet MELOXICAM 12/19/2019 12:00:00 AM EDT tabl et 180 TAKE ONE TABLET BY MOUTH TWICE A DAY TAKE ONE TABLET BY MOUTH TWICE A DAY SOLD: 07/18/2020 [facility] Cyclobenzaprine hydrochloride 10 MG Oral Tablet CYCLOBENZAPR INE HCL 12/19/2019 12:00:00 AM EDT tablet 90 TAKE ONE TABLET BY MOUTH AT BEDTIME TAKE ONE TABLET BY MOUTH AT BEDTIME SOLD: 03/14/2020 [facility] meloxicam 7.5 MG Oral Tablet [Mobic] Mobic 7.5 MG Oral Tablet Mobic 7.5 MG Oral Tablet 12/19/2019 12:00:00 AM EDT 1 aborted meloxicam 7.5 MG Oral Tablet [Mobic] [facility] ([facility]) Cyclobenzaprine hydrochloride 10 MG Oral Tablet CYCLOBENZAPR INE HCL 12/19/2019 12:00:00 AM EDT tablet 90 TAKE ONE TABLET BY MOUTH AT BEDTIME TAKE ONE TABLET BY MOUTH AT BEDTIME SOLD: 06/15/2020 [facility] meloxicam 7.5 MG Oral Tablet MELOXICAM 12/19/2019 12:00:00 AM EDT tabl et 180 TAKE ONE TABLET BY MOUTH TWICE A DAY TAKE ONE TABLET BY MOUTH TWICE A DAY SOLD: 03/14/2020 [facility] Cyclobenzaprine hydrochloride 10 MG Oral Tablet Cyclobenzaprine HCl 10 MG Oral Tablet Cyclobenzaprine HCl 10 MG Oral Tablet 12/19/2019 12:00:00 AM EDT 1 aborted cyclobenzaprine hydrochlorid e 10 MG Oral Tablet [facility] ([facility]) 50 mg 12/13/2019 12:00:00 AM EDT tablet 90 TAKE ONE TABLET BY MOUTH EVERY DAY TAKE ONE TABLET BY MOUTH EVERY DAY SOLD: 03/14/2020 [facility] 50 mg 12/13/2019 12:00:00 AM EDT tablet 90 TAKE ONE TABLET BY MOUTH EVERY DAY TAKE ONE TABLET BY MOUTH EVERY DAY SOLD: 06/03/2020 [facility] Losartan Potassium 50 MG Oral Tablet Losartan Potassium 50 M G Oral Tablet 12/13/2019 12:00:00 AM EDT 1 aborted losartan potassium 50 MG Oral Tablet [facility] ([facility]) gabapentin 300 MG Oral Capsule Gabapentin 300 MG Oral Capsule Gabapentin 300 MG Oral Capsule 10/14/2019 12:00:00 AM EDT 1 abort ed gabapentin 300 MG Oral Capsule [facility] ([facility]) Insurance Providers Payer name Policy type / Coverage type Policy ID Covered republican ID Covered republican's relationship to rockwell Policy [place] Plan Information BS [place] Medigap Part B [id number] Self [id number] [facility] Medigap Part B [id number] Family Dependent [id number] BLUE CROSS [id number] SP [id number] BCBS Indemnity Medigap Part B [id number] Self Medicare Part A [place] Other 0 [id number] Self 0 Medicare [place] Other 0 [id number] Self 0 Medicare [place] Other 0 [id number] Self 0 [place] Other 0 [id number] Self 0 [place] Other 0 [id number] Self 0 [place] Other 0 [id number] Self 0 Medicare Part B Medicare Primary [id number] Self [id number] Medicare Part B [facility] Part B [id number] Self [id number] Medicare Part B Medicare Primary [id number] Self [id number] Medicare [place] Other 0 [id number] Self 0 [place] Other 0 [id number] Self 0 [place] Other 0 [id number] Self 0 [place] Other 0 [id number] Self 0 Medicare Medicare Primary [id number]. [id number] Self [id number] Medicare [place] Other 0 [id number] Self 0 [place] Primary [id number] Self [id number] Medicare [place] Other 0 [id number] Self 0 MEDICARE [id number] SP [id number] A [place] Other 0 [id number] Self 0 [place] Other 0 [id number] Self 0 [place] Other 0 [id number] Self 0 Medicare Medicare Primary [id number]. [id number] Self [id number] Medicare Medicare Primary [id number]. [id number] Self [id number] Medicare [place] Other 0 [id number] Self 0 Medicare [place] Other 0 [id number] Self 0 Medicare Medicare Primary Federal [id number] Self Fed eral Medicare Part [place] Other 0 [id number] Self 0 Medicare [place] Other 0 [id number] Self 0 Medicare Medicare Primary [id number]. [id number] Self [id number] Medicare Part [place] Other 0 [id number] Self 0 Medicare Medicare Primary [id number]. [id number] Self [id number] Medicare [place] Other 0 [id number] Self 0 Medicare Medicare Primary [id number] [id number]. [id number] Self [id number] Medicare [place] Other 0 [id number] Self 0 Medicare [place] Other 0 [id number] Self 0 Medicare Medigap Part B [id number] 97061.0 Self [id number] Medicare [place] Other 0 [id number] Self 0 Medicare [place] Other 0 [id number] Self 0 Medicare [facility] Medicare Primary [id number] Self [id number] Medicare Medicare Primary [id number] 2.16.840.1.713633.3.227. [id number] Self [id number] Medicare [place] Other 0 [id number] Self 0 [place] Other 0 [id number] Self 0 Medicare [place] Other 0 [id number] Self 0 Medicare [place] Other 0 [id number] Self 0 Medicare [place] Other 0 [id number] Self 0 Medicare Medicare Primary [id number] 2.16.840.1.579760.3.227. [id number] Self [id number] Medicare Medicare Primary [id number] 2.16.840.1.693960.3.227. [id number] Self [id number] [place] Primary [id number] 2.16.840.1.983[id number] Self [id number] BCBS Commercial Medigap Part B [id number] Self [id number] [employer] Commercial Medigap Part B [id number] Self [id number] BCBS Commercial Medigap Part B [id number] Self BCBS Indemnity Medigap Part B [id number] Self BCBS Commercial Medigap Part B [id number] Self [id number] BCBS Commercial Medigap Part B [id number].374910.0 Self [id number] BCBS Commercial Medigap Part B [id number] [id number] Self [id number] BCBS Commercial Medigap Part B [id number] 2..[id number]55.0 Self [id number] BCBS Commercial Medigap Part B [id number] 2..1.782831.3.227.99.683.538220.0 Self [id number] BCBS Commercial Medigap Part B [id number] 2..[id number]23.0 Self [id number] BCBS Commercial Medigap Part B [id number] 2..1.643314.3.227.99.683.317265.0 Self [id number] BCBS Commercial Medigap Part B [id number] 2..[id number]11.0 Self [id number] BCBS Commercial Medigap Part B [id number] 2..1.064033.3.227.99.683.115420.0 Self [id number] BCBS [place] PPO 302/307 [id number] SP [id number] BCBS Commercial Medigap Part B [id number] [id number] Self [id number] BCBS of [place] Other 0 [id number] Self 0 [place] Other 0 [id number] Self 0 [place] Other 0 [id number] Self 0 [place] Other 0 [id number] Self 0 [place] Other 0 [id number] Self 0 [place] Other 0 [id number] Self 0 [place] Other 0 [id number] Self 0 [place] Other 0 [id number] Self 0 [place] Other 0 [id number] Self 0 [place] Other 0 [id number] Self 0 [place] Other 0 [id number] Self 0 [place] Other 0 [id number] Self 0 [place] Other 0 [id number] Self 0 [place] Other 0 [id number] Self 0 [place] Other 0 [id number] Self 0 [place] Other 0 [id number] Self 0 [place] Other 0 [id number] Self 0 [place] Other 0 [id number] Self 0 [place] Other 0 [id number] Self 0 [place] Other 0 [id number] Self 0 [place] Other 0 [id number] Self 0 [place] Other 0 [id number] Self 0 [place] Other 0 [id number] Self 0 [place] Other 0 [id number] Self 0 [place] Other 0 [id number] Self 0 [employer] Commercial Medigap Part B [id number] Self [id number] [facility] [place] [facility] Medigap Part B [id number] Self [id number] BCBS Commercial Medigap Part B [id number] 2.16.840.1.743941.3.227.99.683.994126.0 Self [id number] BCBS Commercial Medigap Part B [id number] 2.16.840.1.590641.3.227.99.683.255052.0 Self [id number] BCBS of [facility] Other 0 [id number] Self 0 BCBS Commercial Medigap Part B [id number].683.063933.0 Self [id number] BCBS Commercial Medigap Part B [id number] 2.16.840.1.241[id number] Self [id number] BCBS of [place] Other 0 [id number] Self 0 BCBS of [facility] Other 0 [id number] Self 0 BCBS of [facility] Other 0 [id number] Self 0 BCBS of [facility] Other 0 [id number] Self 0 BCBS Commercial Medigap Part B [id number] Self [id number] BCBS Commercial Medigap Part B [id number] 2.16.840.1.085498.3.227.99.683.686047.0 Self [id number] BCBS Commercial Medigap Part B [id number] 2.16.840.1.758758.3.227.99.683.863070.0 Self [id number] BCBS Commercial Medigap Part B [id number] 2.16.840.1.56[id number] Self [id number] BCBS Commercial Medigap Part B [id number]9.683.132573.0 Self [id number] [facility] [place] [facility] Medigap Part B [id number]9.104.80036.0 Self [id number] [place] Medigap Part B [id number] Self [id number] BLUE CROSS [id number] SP [id number] BCBS Commercial Medigap Part B [id number] Self BCBS Indemnity Medigap Part B [id number] Self SELF PAY BLUE CROSS [id number] SP [id number] MEDICARE [id number] SP [id number] MEDICARE A [id number] Self [id number] E16 SELF PAY BLUE CROSS [id number] SP [id number] MEDICARE [id number] SP [id number] SELF PAY BLUE CROSS [id number] SP [id number] MEDICARE [id number] SP [id number] BLUE CROSS [id number] SP [id number] SELF PAY MEDICARE [id number] SP [id number] SELF PAY MEDICARE [id number] SP [id number] BLUE CROSS [id number] SP [id number] BCBS [place] PPO 302/307 [id number] SP [id number] MEDICARE [id number] SP [id number] BLUE CROSS [id number] SP [id number] SELF PAY MEDICARE [id number] SP [id number] SELF PAY BLUE CROSS [id number] SP [id number] UNAVAILABLE UNAVAILA BLE MEDICARE MCA [id number] S [id number] MEDICARE MCA [id number] S [id number] Blue Shield of [facility] [id number] 18 [id number] [place] Medicare Primary 2...[id number]. [id number] Self EXCELLUS BLUE CROSS BLUE SHIELD HEA [id number] S [id number] [facility] [place] [facility] Part B [id number] Self Medicare [place] [id number] 18 [id number] [place] UNAVAILABLE UNAVAILABLE MEDICARE M [id number] S [id number] A MEDICARE C [id number] S [id number] A EXCELLUS BCBS B [id number] S [id number] MEDICARE [id number] SP [id number] A MEDICARE C [id number] S [id number] MEDICARE MCA [id number] S [id number] [place] 305/805 [id number] SP [id number] EXCELLUS BCBS B [id number] S VYW BLUE CROSS O [id number] S [id number] BS [place] Medigap Part B [id number] Self [id number] MEDICARE M [id number] S [id number] A MEDICARE [place] [id number] S [id number] MEDICARE [id number] SP [id number] A MEDICARE [id number] SP [id number] E16 BCBS OF [place] 306/806 [id number] SP [id number] Medicare [id number] Medicare [id number] ID IDENTIFICATION [id number] [id number] [id number] Other Insurance [id number] [employer] Blue Cross [id number] Blue Cross/Skye eld [id number] Medicare Medicare Primary [id number]. [id number] Self [id number] Problems, Conditions, and Diagnoses Code Display Name Description Problem Type Effective Dates Data Source(s) I10 Essential (primary) hypertension I10 - Essential (primary) hypertension Diagnosis 08/16/2020 11:36:00 AM [facility] K21.9 Gastro-esophageal reflux disease without esophagitis K21.9 - Gastro- esophageal reflux disease without esophagitis Diagnosis 08/16/19 11:36:00 AM [facility] E21.3 Hyperparathyroidism, unspecified E21.3 - Hyperpa rathyroidism, unspecified Diagnosis 08/16/2020 11:36:00 AM [facility] E03.9 Hypothyroidism, unspecified E03.9 - Hypothyroidism, un specified Diagnosis 08/16/2020 11:36:00 AM [facility] V76.51 Colon Screening Colon Screening Problem 1 10:12:00 AM EST - 08/24/2020 10:13:00 AM EST [employer]) V76.51 Colon Screening Colon Screening Problem 1 10:12:00 AM EST - 08/24/2020 10:13:00 AM EST [employer] V76.51 Colon Screening Colon Screening Problem 1 10:12:00 AM EST - 08/24/2020 10:13:00 AM [employer]) V76.51 Colon Screening Colon Screening Problem 10:12:00 AM EST - 08/24/2020 10:13:00 AM EST [facility] ([facility]) Surgeries/Procedures Procedure Description Date Indications Data Source(s) RMVL IMPACTED CERUMEN SPX 1/BOTH EARS 03/05/2021 12:00 :00 AM EDT [facility] ([facility]) OFFICE OUTPATIENT VISIT 25 MINUTES 03/05/2021 12:00:00 AM [facility] Ligation of vein (procedure) History of venous ligation lt leg 02/22/2021 12:00:00 AM EDT [facility] Ligation of fallopian tube (procedure) History of tubal liga tion 197902/22/2021 12:00:00 AM EDT [facility] ([facility]) Decompression of median nerve (procedure) History of d ecompression of median nerve at carpal tunnel right 2001, left 201202/22/2021 12:00:00 AM EDT [facility]) Cholecystectomy (procedure) History of cholecystectomy 197402/22/2021 12:00:00 AM EDT [facility] ([facility]) Lumpectomy of breast (procedure) History of breast lum pectomy was performed benign tumor removed right breast 199402/22/2021 12:00:00 AM EDT [facility] ([facility]) Appendectomy (procedure) History of appendectomy in cidental to cholecystectomy 197402/22/2021 12:00:00 AM EDT [facility] ([facility]) Operative procedure on ankle (procedure) History of ankle chowdhury rgery 2007 x 2 02/22/2021 12:00:00 AM EDT [facility] ([facility]) Summary provided electronically in CCDA format & reasonable certainty of receipt 02/22/2021 12:00:00 AM EDT - 02/22/2021 12:00:00 AM EDT [facility] ([facility]) Clinical summary provided to patient 12:00:00 AM EDT - 02/22/2021 12:00:00 AM EDT [facility]) drug and/or alcohol abuse structured scr eening and brief intervention 02/22/2021 : Prescreening Completed - No Further Screening Indicated 02/22/2021 12:00:00 AM EDT - 02/22/2021 12:00:00 AM EDT [facility] ([facility]) medical regimen review 02/22/2021 12:00: 00 AM EDT - 02/22/2021 12:00:00 AM EDT [facility] ([facility]) Transition in care medication list update 02/22/2021 12:00:00 AM EDT - 02/22/2021 12:00:00 AM EDT [facility] (formerly [facility]) Immunization education (procedure) 02/22 12:00:00 AM EDT - 02/22/2021 12:00:00 AM EDT [facility] (formerly [facility]) continue current medication unless otherwise stated 02/22/2021 12:00:00 AM EDT - 02/22/2021 12:00:00 AM EDT [facility] (formerly [facility] ) Tdap, Tetanus, Diphtheria Toxoids and Acellular Pertus sis Va Tdap, Tetanus, Diphtheria Toxoids and Acellular Pertussis Va 02/22/2021 12:00:00 AM EDT [facility] (formerly [facility]) RMVL IMPACTED CERUMEN SPX 1/BOTH EARS 01/22/2021 12:00 :00 AM EDT [facility] ([facility]) RMVL IMPACTED CERUMEN SPX 1/BOTH EARS 12/31/2020 12:00 :00 AM EDT [facility] OFFICE OUTPATIENT VISIT 25 MINUTES 12/31/2020 12:00:00 AM EDT [facility]) X-Ray Spine Entire Thoracic/Lumbar 2 Or 3 Views 2020 12:00:00 AM EDT [facility] ([facility]) X-Ray Spine [employer] Bending Views Min Of 6 11/09/2020 12:00:00 AM EDT [facility] ([facility]) RMVL IMPACTED CERUMEN SPX 1/BOTH EARS 10/31/2020 12:00 :00 AM EDT [facility] ([facility]) OFFICE OUTPATIENT VISIT 25 MINUTES 10/31/2020 12:00:00 AM EDT [facility] ([facility]) NJX ANES&/STRD W/IMG TFRML EDRL LMBR/SAC 1 LVL 2 021 12:00:00 AM EDT [facility] ([facility]) NJX ANES&/STRD W/IMG TFRML EDRL LMBR/SAC EA LVL 2020 12:00:00 AM EDT [facility] ([facility]) Epidurography Radiological Supervision & Interpretation 10/01/2020 12:00:00 AM EDT [facility] ([facility]) Summary provided electronically in CCDA format & reasonable certainty of receipt 09/19/2020 12:00:00 AM EDT - 09/19/2020 12:00:00 AM EDT [facility] Clinical summary provided to patient 12:00:00 AM EDT - 09/19/2020 12:00:00 AM EDT [facility] ([facility]) medical regimen review 09/19/2020 12:00: 00 AM EDT - 09/19/2020 12:00:00 AM EDT [facility] ([facility]) continue current medication except where otherwise noted 09/19/2020 12:00:00 AM EDT - 09/19/2020 12:00:00 AM EDT [facility] RMVL IMPACTED CERUMEN SPX 1/BOTH EARS 08/29/2020 12:00 :00 AM EST [facility] ([facility]) OFFICE OUTPATIENT VISIT 25 MINUTES 08/29/2020 12:00:00 AM EST [facility] ([facility]) [facility] (fq) visit, established patient; a medically-necessary, imln-lp-nrhh encounter (one-on-one) between an established patient and a [facility] practitioner during which time one or more [facility] services are rendered and includes a typical bundle of medicare-covered services that would be furnished locker room supervisor to a patient receiving a [facility] visit FQ Visit, established patient 08/24/2020 12:00:00 AM EST [facility] ([employer] [facility]) RMVL IMPACTED CERUMEN SPX 1/BOTH EARS 06/07/2020 12:00 :00 AM EST [facility] ([facility]) OV for Observation OV for Observation 05/17/2020 12:00:00 AM EST [facility] NJX ANES&/STRD W/IMG TFRML EDRL LMBR/SAC 1 LVL 020 12:00:00 AM EST [facility] ([facility]) NJX ANES&/STRD W/IMG TFRML EDRL LMBR/SAC EA LVL 2019 12:00:00 AM EST [facility] ([facility]) Epidurography Radiological Supervision & Interpretation 05/14/2020 12:00:00 AM EST [facility] ([facility]) Periodic Oral Evaluation Periodic Oral Evaluation 05/01/2020 12:00: 00 AM EDT [facility] - 4 radiographic images [facility] - 4 radiographic i mages 05/01/2020 12:00:00 AM EDT [facility] Prophylaxis Adult Prophylaxis Adult 05/01/2020 12:00:00 AM EDT [facility]) Oral Cancer Screening Oral Cancer Screening 05/01/2020 12:00:00 AM EDT [facility] ([facility]) Oral Hygiene/Steve Inst Oral Hygiene/Steve Inst 05/01/2020 12:00:00 AM EDT [facility] ([facility]) Nutritional Counseling Nutritional Counseling 05/01/2020 12:00:00 A M EDT [facility] Periodontal Charting Periodontal Charting 05/01/2020 12:00:00 AM ED T [facility] ([facility]) Resin-Based Comp 4 or more Surf Post Resin-Based Comp 4 or m ore Surf Post 04/25/2020 12:00:00 AM EDT [facility] intraoral-periapical first radiographic image intraora l-periapical first radiographic image 04/16/2020 12:00:00 AM EDT [facility] ([facility]) Resin-Based Comp 2 Surf Post Resin-Based Comp 2 Surf Post 12:00:00 AM EDT [facility] RMVL IMPACTED CERUMEN SPX 1/BOTH EARS 04/09/2020 12:00 :00 AM EDT [facility]) NJX ANES&/STRD W/IMG TFRML EDRL LMBR/SAC 1 LVL 020 12:00:00 AM EDT [facility] ([facility]) NJX ANES&/STRD W/IMG TFRML EDRL LMBR/SAC EA LVL 2019 12:00:00 AM EDT [facility] ([facility]) Epidurography Radiological Supervision & Interpretation 03/19/2020 12:00:00 AM EDT [facility] ([facility]) Results ID Date Data Source [id number] 04/03/2021 04:04:00 PM EDT [facility] DATE OF EXAM: 03/28/2021ILATERAL SCREEN ING TOMOSYNTHESIS 3D DIGITAL MAMMOGRAM WITH CAD INDICATION: Screening COMPARISON: Mammograms dating back to 02/11/2016 LAST CLINICAL BREAST EXAM: March 2020 [facility] Breast Cancer Risk Evaluation (Harrietter-Devantezick Model v.8)This patient - Lifetime risk (to age 85): 6.8% Lifetime population risk (to age 85): 4.6% Probability BRCA 1: 0.01%Probability BRCA 2: 0.05% TECHNIQUE: Bilateral craniocaudal and medial lateral oblique 3D digital mammograms were obtained using tomosynthesis and CAD. FINDINGS: There are scattered areas of fibroglandular density. No primary or secondary signs of malignancy are seen. IMPRESSION: Normal mammogram. Recommend routine yearly mammogram. BI-RADS 1 - NEGATIVE End of diagnostic report for accession: [id number] Interpreted: Ronald Avila MDTranscribed: 03/28/2021 11:12 AMSigned: 04/03/2021 04:04 PM Ronald Avila MD [facility] ACC # [id number] BILL # [id number] [facility] Name Value Range Interpretation Code Description Data Dora rce(s) Supporting Document(s) ID Date Data Source [id number] 10/31/2020 12:08:00 PM EDT [facility] ([facility]) Name Value Range Interpretation Code Description Data Dora rce(s) Supporting Document(s) Glucose mean value [Mass/volume] in Blood Estimated fr om glycated hemoglobin 120 mg/dL [facility] The Estimated Average Glucose is a calcu lation of the average glucose over the last 120 days including non-fasting as well as fasting levels. Venipuncture Laboratory test result [facility] ([facility]) cc: Bernadine Ray ID Date Data Source [id number] 10/31/2020 12:08:00 PM EDT [facility] ([facility]) Name Value Range Interpretation Code Description Data Dora rce(s) Supporting Document(s) Thyrotropin [Units/volume] in Serum or Plasma 1.744 mIU/ml 0.350-5.50 0 [facility] ([facility]) cc: Bernadine Navarrete Thyroxine (T4) free [Mass/volume] in Serum or Plasma 1.44 ng/dL 0.89- 1.80 [facility] ([facility]) cc: Bernadine Navarrete ID Date Data Source [id number] 10/31/2020 12:08:00 PM EDT [facility] ([facility]) Name Value Range Interpretation Code Description Data Dora rce(s) Supporting Document(s) Hemoglobin A1c/Hemoglobin.total in Blood 5.8 % 3.6-6.9 [facility] ([facility]) <content>Hgb A1c Interpretation:</conten t>
<content><5.8% - Non- diabetic</content>
<content>>6.5% - Diabetic</content>
<content><7.0% - ADA diabetic treatment goal</content>
<content></content> ID Date Data Source [id number] 09/19/2020 06:11:00 PM EDT [facility] Name Value Range Interpretation Code Description Data Dora rce(s) Supporting Document(s) SODIUM 142 MEQ/L 135-145 N [facility] POTASSIUM 4.2 MEQ/L 3.5-5.3 N [facility] CHLORIDE 108 MEQ/L 94-110 [facility] CARBON DIOXIDE 27 MEQ/L 22-33 N [facility] ANION GAP 11 5-16 N [facility] BLOOD UREA NITRO 29 MG/DL 7-25 H [facility] CREATININE 1.0 MG/DL 0.6-1.4 N [facility] GFR 54.5 ML/MIN [facility] Stage G3a - Mildly to moderately decrea sed kidney function The GFR is an estimate of the Glomerular Filtration Rate. It is an aid to assess a patient's renal function. It is not a conclusive diagnosis of kidney disease. GFR normal is >=90 The MDRD GFR calculation is considered valid between the ages of 18 and 75 years only. BUN/CREAT RATIO 29 8-36 N [facility] GLUCOSE 100 MG/DL 70-100 N [facility] CA 9.1 MG/DL 8.7-10.5 N [facility] BILIRUBIN,TOTAL 0.5 MG/DL 0.1-1.3 N [facility] AST 10 U/L 5-40 N [facility] ALT 18 U/L 5-48 [facility] ALKALINE PHOSPHATASE 78 U/L 40-140 [facility] TOTAL PROTEIN 6.2 G/DL 5.9-8.3 N [facility] ALBUMIN 4.4 G/DL 3.0-5.1 [facility] GLOBULIN 1.8 G/DL 1.5-3.5 [facility] ALB/GLOB RATIO 2.4 G/DL 1.0-3.0 [facility] ID Date Data Source [id number] 09/03/2020 01:37:00 PM EST [facility] ([facility]) Name Value Range Interpretation Code Description Data Dora rce(s) Supporting Document(s) Covid Rapid Testing Laboratory test result [facility] ([facility]) ID Date Data Source [id number] 09/03/2020 12:00:00 AM EST [facility] Name Value Range Interpretation Code Description Data Dora rce(s) Supporting Document(s) Covid Rapid Testing negative [facility] This lab was ordered by [place] and re ported by [facility]. ID Date Data Source [id number] 08/16/2020 11:44:00 AM EST [facility] Name Value Range Interpretation Code Description Data Dora rce(s) Supporting Document(s) Reported Physicians See Note Reported Physicians [facility] ([facility]) Note: Reported Physicians:Ordering: Bernadine Navarrete LAttending: Bernadine Navarrete ID Date Data Source [id number] 08/16/2020 11:44:00 AM [employer] ([employer] [facility] [employer]) Name Value Range Interpretation Code Description Data Dora rce(s) Supporting Document(s) Thyrotropin [Units/volume] in Serum or Plasma by Detec tion limit <= 0.05 mIU/L 1.912 uIU/ML Normal TSH [facility] ([facility]) Note: Patients should not be tested for 72 hours post fluorescein dye angiography. A false depression of result may occur.Responsible Observer: TSH TSH 300.5500 (A) ID Date Data Source [id number] 08/16/2020 11:44:00 AM EST [facility] ([employer] [facility] [employer]) Name Value Range Interpretation Code Description Data Dora rce(s) Supporting Document(s) Calcidiol [Mass/volume] in Serum or Plasma 54.5 ng/ml Normal Vitamin D,25-HYDROXY [facility] ([facility]) Note: Vitamin D Status Rang e Deficiency <20 ng/ml Insufficiency 20-29.9 ng/ml Sufficiency 30-100 ng/ml Toxicity >100 ng/ml Patients should not be tested for 72 hours post fluorescein dye angiography. A false elevation of result may occur.Responsible Observer: Vitamin D Vitamin D,25-Hydroxy 300.5230 (A) ID Date Data Source [id number] 08/16/2020 11:44:00 AM EST [employer] ([employer] [facility] [employer]) Name Value Range Interpretation Code Description Data Dora rce(s) Supporting Document(s) Albumin [Mass/volume] in Synovial fluid 4.3 G/DL Normal ALBUMIN [facility] ([facility]) Note: Responsible Observer: ALB ALBUMIN 300.3900 (A) Albumin/Globulin [Mass Ratio] in Amniotic fluid 2.5 G/DL Normal ALB/GLOB RATIO [facility] ([facility]) Note: Responsible Observer: A/G RATIO AL B/GLOB RATIO 300.4100 (A) Alanine aminotransferase [Enzymatic activity/volume] in Seru m or Plasma 17 U/L Normal ALT [facility] ([facility]) Note: Responsible Observer: ALT/SGPT ALT 300.3100 (A) Alkaline phosphatase isoenzyme [Units/volume] in Serum or Plasma 76 U/L Normal ALKALINE PHOSPHATASE [facility] ([facility]) Note: Responsible Observer: ALK PHOS ALK JAKY PHOSPHATASE 300.3110 (A) Urea nitrogen/Creatinine [Mass Ratio] in Serum or Plasma 22 Normal BUN/CREAT RATIO [facility] ([facility]) Note: Responsible Observer: BUN/CREAT RA YOHANNES BUN/CREAT RATIO 300.0450 (A) Aspartate aminotransferase [Enzymatic activity/volume] in Se rum or Plasma 9 U/L Normal AST [facility] ([facility]) Note: Responsible Observer: AST/SGOT AST 300.3050 (A) BLOOD UREA NITRO 18 MG/DL Normal BLOOD UREA NITRO [facility] ([facility]) Note: Responsible Observer: BUN BLOOD UR EA NITROGEN 300.0350 (A) Bilirubin.total [Mass/volume] in Serum or Plasma 0.4 MG/DL Normal BILIRUBIN,TOTAL [facility] ([facility]) Note: Responsible Observer: TOTAL BILI T OTAL BILIRUBIN 300.2700 (A) Chloride [Moles/volume] in Serum, Plasma or Blood 110 MEQ/L Normal CHLORIDE [facility] ([facility]) Note: Responsible Observer: CL CHLORIDE 300.0200 (A) CA 9.0 MG/DL Normal CA [facility] ([facility]) Note: Responsible Observer: CA CALCIUM 300.2200 (A) Anion gap in Blood 10 Normal ANION GAP [facility] ([facility]) Note: Responsible Observer: ANION GAP AN ION GAP 300.0300 (A) Creatine/Creatinine [Mass Ratio] in Urine 0.8 MG/DL Valery l CREATININE [facility] ([facility]) Note: Responsible Observer: CREAT CREATI NINE 300.0400 (A) Carbon dioxide, total [Moles/volume] in Serum or Plasma 27 MEQ/L Normal CARBON DIOXIDE [facility] ([facility]) Note: Responsible Observer: CO2 CARBON D IOXIDE 300.0250 (A) GFR 70.5 ML/MIN GFR [facility] ([facility]) Note: Stage G2 - Mildly decreased kidne y function The GFR is an estimate of the Glomerular Filtration Rate. It is an aid to assess a patient's renal function. It is not a conclusive diagnosis of kidney disease. GFR normal is >=90 The MDRD GFR calculation is considered valid between the ages of 18 and 75 years only.Responsible Observer: GFR GFR 300.0410 (A) Globulin [Mass/volume] in Serum by calculation 1.7 G/DL Normal GLOBULIN [facility] ([facility]) Note: Responsible Observer: GLOB GLOBULI N 300.4050 (A) Glucose [Presence] in Urine 93 MG/DL [facility] Note: Responsible Observer: GLU GLUCOSE 300.0500 (A) Potassium [Mass/volume] in Blood 3.8 MEQ/L Normal POT ASSIUM [facility] ([facility]) Note: Responsible Observer: K POTASSIUM 300.0150 (A) Sodium [Moles/volume] in Serum, Plasma or Blood 143 MEQ/L Normal SODIUM [facility] ([facility]) Note: Responsible Observer: NA SODIUM 3 00.0100 (A) Protein [Mass/volume] in Synovial fluid 6.0 G/DL Normal TOTAL PROTEIN [facility] ([facility]) Note: Responsible Observer: TP TOTAL PRO TEIN 300.3750 (A) ID Date Data Source [id number] 08/16/2020 11:44:00 AM [facility] ([facility]) Name Value Range Interpretation Code Description Data Dora rce(s) Supporting Document(s) BASO % (AUTO) 0.7 % Normal BASO % (AUTO) [facility] ([facility]) Note: Responsible Observer: BASO % (AUTO ) BASO % (AUTO) 100.1250 (A) BASO # (AUTO) 0.05 10\\^3/uL Normal BASO # (AUTO) [facility] ([facility]) Note: Responsible Observer: BASO # (AUTO ) BASO # (AUTO) 100.1500 (A) EOS % (AUTO) 6.3 % Normal EOS % (AUTO) [facility] ([facility]) Note: Responsible Observer: EOS % (AUTO) EOS % (AUTO) 100.1200 (A) EOS # (AUTO) 0.46 10\\^3/uL Normal EOS # (AUTO) [facility] ( [facility]) Note: Responsible Observer: EOS # (AUTO) EOS # (AUTO) 100.1450 (A) GRAN # (AUTO) 4.67 10\\^3/uL Normal GRAN # (AUTO) [facility] ([facility]) Note: Responsible Observer: GRAN # (AUTO ) GRAN #(AUTO) 100.1325 (A) GRAN % (AUTO) 64.3 % Normal GRAN % (AUTO) [facility] ([facility]) Note: Responsible Observer: GRAN % (AUTO ) GRAN % (AUTO) 100.1000 (A) Hematocrit [Volume Fraction] of Blood by Automated count 38.9 % Normal HEMATOCRIT [facility] ([facility]) Note: Responsible Observer: HCT HEMATOCR IT 100.0400 (A) Hemoglobin [Mass/volume] in Blood 12.4 G/DL Normal HE MOGLOBIN [facility] ([facility]) Note: Responsible Observer: HGB HEMOGLOB IN 100.0300 (A) IG # (AUTO) 0.0 10\\^3/uL IG # (AUTO) [facility] ([facility]) Note: Responsible Observer: IG # (AUTO) IG # (AUTO) 100.1260 (A) IG % (AUTO) 0.4 % IG % (AUTO) [facility] ([facility]) Note: Responsible Observer: IG % (AUTO) IG % (AUTO) 100.1255 (A) LYMPH % (AUTO) 23.5 % Normal LYMPH % (AUTO) [facility] ( [facility]) Note: Responsible Observer: LYMPH % (AUT O) LYMPH % (AUTO) 100.1100 (A) LYMPH # (AUTO) 1.7 k/uL Normal LYMPH # (AUTO) [facility] ( [facility]) Note: Responsible Observer: LYMPH # (AUT O) LYMPH # (AUTO) 100.1350 (A) Erythrocyte mean corpuscular hemoglobin concentration [Mass/volume] by Automated count 31.9 G/DL Below low normal MCHC [facility] ([facility]) Note: Responsible Observer: MCHC MCHC 1 00.0650 (A) Erythrocyte mean corpuscular hemoglobin [Entitic mass] by Automated count 28.0 PG Normal MCH [facility] ([facility]) Note: Responsible Observer: MCH MCH 100 .0600 (A) Erythrocyte mean corpuscular volume [Entitic volume] by Auto mated count 87.8 FL Normal MCV [facility] ([facility]) Note: Responsible Observer: MCV MCV 100 .0550 (A) MONO # (AUTO) 0.35 k/uL Normal MONO # (AUTO) [facility] ([facility]) Note: Responsible Observer: MONO # (AUTO ) MONO # (AUTO) 100.1400 (A) MONO % (AUTO) 4.8 % Normal MONO % (AUTO) [facility] ([facility]) Note: Responsible Observer: MONO % (AUTO ) MONO% (AUTO) 100.1150 (A) MPV 10.4 FL Normal MPV [facility] ([facility]) Note: Responsible Observer: MPV MPV 100 .0950 (A) Erythrocytes [#/volume] in Blood by Automated count 4.43 10\\^6/uL Normal RED BLOOD COUNT [facility] ([facility]) Note: Responsible Observer: RBC RED BLOO D COUNT 100.0250 (A) Platelets [#/volume] in Plasma by Automated count 245 10\\^3/uL Normal PLATELET COUNT [facility] ([facility]) Note: Responsible Observer: PLT PLATELET COUNT 100.0850 (A) Erythrocyte distribution width [Ratio] by Automated count 13.0 % Normal RDW [facility] ([facility]) Note: Responsible Observer: RDW RDW 100 .0700 (A) Leukocytes [#/volume] in Blood by Automated count 7.27 10\\^3/uL Normal WHITE BLOOD COUNT [facility] ([facility]) Note: Responsible Observer: WBC WHITE BL OOD COUNT 100.0150 (A) ID Date Data Source [id number] 08/16/2020 01:39:00 PM EST [facility] Name Value Range Interpretation Code Description Data Dora rce(s) Supporting Document(s) WHITE BLOOD COUNT 7.27 10^3/uL 4.00-10.50 N [facility] RED BLOOD COUNT 4.43 10^6/uL 3.90-5.20 N [facility] HEMOGLOBIN 12.4 G/DL 11.5-15.6 N [facility] HEMATOCRIT 38.9 % 35.0-46.0 N [facility] MCV 87.8 FL 80.0-100.0 N [facility] MCH 28.0 PG 27.0-34.0 N [facility] MCHC 31.9 G/DL 32-36 L [facility] RDW 13.0 % 11.5-14.5 N [facility] PLATELET COUNT 245 10^3/uL 130-400 N [facility] MPV 10.4 FL 8.7-13.2 N [facility] GRAN % (AUTO) 64.3 % 42.0-75.0 N [facility] LYMPH % (AUTO) 23.5 % 20.0-51.0 N [facility] MONO % (AUTO) 4.8 % 2.0-15.0 N [facility] EOS % (AUTO) 6.3 % 0.0-11.0 N [facility] BASO % (AUTO) 0.7 % 0.0-2.0 N [facility] IG % (AUTO) 0.4 % 1.00-5.00 [facility] IG # (AUTO) 0.0 10^3/uL <0.5 [facility] GRAN # (AUTO) 4.67 10^3/uL 1.50-6.50 N [facility] LYMPH # (AUTO) 1.7 k/uL 1.0-5.0 N [facility] MONO # (AUTO) 0.35 k/uL 0.20-1.50 N [facility] EOS # (AUTO) 0.46 10^3/uL 0.00-1.10 N [facility] BASO # (AUTO) 0.05 10^3/uL 0.00-0.20 N [facility] ID Date Data Source [id number] 08/16/2020 05:28:00 PM EST [facility] Name Value Range Interpretation Code Description Data Dora rce(s) Supporting Document(s) SODIUM 143 MEQ/L 135-145 N [facility] POTASSIUM 3.8 MEQ/L 3.5-5.3 N [facility] CHLORIDE 110 MEQ/L 94-110 N [facility] CARBON DIOXIDE 27 MEQ/L 22-33 N [facility] ANION GAP 10 5-16 N [facility] BLOOD UREA NITRO 18 MG/DL 7-25 N [facility] CREATININE 0.8 MG/DL 0.6-1.4 N [facility] GFR 70.5 ML/MIN [facility] Stage G2 - Mildly decreased kidney func tion The GFR is an estimate of the Glomerular Filtration Rate. It is an aid to assess a patient's renal function. It is not a conclusive diagnosis of kidney disease. GFR normal is >=90 The MDRD GFR calculation is considered valid between the ages of 18 and 75 years only. BUN/CREAT RATIO 22 8-36 N [facility] GLUCOSE 93 MG/DL 70-100 [facility] CA 9.0 MG/DL 8.7-10.5 [facility] BILIRUBIN,TOTAL 0.4 MG/DL 0.1-1.3 [facility] AST 9 U/L 5-40 N [facility] ALT 17 U/L 5-48 [facility] ALKALINE PHOSPHATASE 76 U/L 40-140 [facility] TOTAL PROTEIN 6.0 G/DL 5.9-8.3 [facility] ALBUMIN 4.3 G/DL 3.0-5.1 [facility] GLOBULIN 1.7 G/DL 1.5-3.5 [facility] ALB/GLOB RATIO 2.5 G/DL 1.0-3.0 [facility] ID Date Data Source [id number] 08/16/2020 05:28:00 PM [facility] Name Value Range Interpretation Code Description Data Dora rce(s) Supporting Document(s) Vitamin D,25-HYDROXY 54.5 ng/ml 30-100 [facility] Vitamin D Status Range De ficiency <20 ng/ml Insufficiency 20-29.9 ng/ml Sufficiency 30-100 ng/ml Toxicity >100 ng/ml Patients should not be tested for 72 hours post fluorescein dye angiography. A false elevation of result may occur. ID Date Data Source [id number] 08/16/2020 05:28:00 PM [facility] Name Value Range Interpretation Code Description Data Dora rce(s) Supporting Document(s) TSH 1.912 uIU/ML 0.470-4.200 [facility] Patients should not be tested for 72 ho urs post fluorescein dye angiography. A false depression of result may occur. ID Date Data Source [id number] 08/13/2020 02:18:00 PM EST [facility] ([facility]) Name Value Range Interpretation Code Description Data Dora rce(s) Supporting Document(s) Laboratory test finding (navigational concept) Laboratory test result [facility] ([facility]) ID Date Data Source [id number] 06/07/2020 02:42:00 PM EST [facility] ([facility]) Name Value Range Interpretation Code Description Data Dora rce(s) Supporting Document(s) Venipuncture Laboratory test result [facility] ([facility]) ID Date Data Source [id number] 06/07/2020 02:42:00 PM EST [facility] ([facility]) Name Value Range Interpretation Code Description Data Dora rce(s) Supporting Document(s) Thyrotropin [Units/volume] in Serum or Plasma 1.598 mIU/ml 0.350-5.50 0 [facility] ([facility]) Thyroxine (T4) free [Mass/volume] in Serum or Plasma 1.25 ng/dL 0.89- 1.80 [facility] ([facility]) ID Date Data Source [id number] 06/07/2020 02:42:00 PM EST [facility] ([facility]) Name Value Range Interpretation Code Description Data Dora rce(s) Supporting Document(s) Creatinine [Mass/volume] in Serum or Plasma 0.9 mg/dL 0.5-1.3 [facility] ([facility]) Glucose [Mass/volume] in Serum or Plasma 122 mg/dL 74-106 Above high normal [facility] ([facility]) [employer] (ADA) Recommended Range is 65-99 mg/dL Urea nitrogen [Moles/volume] in Serum or Plasma 22 mg/dL 6-20 Above high normal [facility] ([facility]) Chloride [Moles/volume] in Serum or Plasma 105 mmol/L 98-107 [facility] ([facility]) Potassium [Moles/volume] in Serum or Plasma 4.2 mmol/L 3.5-5.3 [facility] ([facility]) Sodium [Moles/volume] in Serum or Plasma 143 mmol/L 136-145 [facility] ([facility]) Carbon dioxide, total [Moles/volume] in Serum or Plasma 29 meq/L 20 -31 [facility] ([facility]) eGFR-female 62 mL/m/1.73m [facility] ([facility]) Anion Gap 9 mmol/L 7-16 [facility] ([facility] eGFR-Aa female 74 mL/m/1.73m [facility] ([facility]) <content>Normal Kidney Function or Mild Disease GFR >59 mL/min/1.73m2</content>
<content>Chronic Kidney Disease GFR 15-59 mL/min/1.73m2</content>
<content>Renal Failure GFR <15 mL/min/1.73m2</content>
<content></content> Alkaline phosphatase [Enzymatic activity/volume] in Serum or Plasma 69 U/L 46-116 [facility] ([facility]) Alanine aminotransferase [Enzymatic activity/volume] in Seru m or Plasma 22 U/L 4-36 [facility] ([facility]) Effective 01/03/2017: Behind the Burner has indicated interference with the drugs sulfasalazine and sulfapyridine. They suggest collection should occur prior to drug administration due to falsely depressed results. Bilirubin.total [Mass/volume] in Serum or Plasma 0.3 mg/dL 0.3-1.2 [facility] ([facility]) Protein [Mass/volume] in Serum or Plasma 6.1 g/dL 6.4-8.3 Below low normal [facility] ([facility]) Results may reflect a potential interfer ence in Total Protein results in patients receiving dextran as blood volume expanders. Aspartate aminotransferase [Enzymatic activity/volume] in Serum or Plasma 22 U/L 8-33 [facility] Albumin/Globulin [Mass Ratio] in Serum or Plasma 2.4 Ratio 1.0-2.0 Above high normal [facility] ([facility]) Albumin [Mass/volume] in Serum or Plasma 4.3 g/dL 3.6-5.1 [facility] ([facility]) Calcium [Mass/volume] in Serum or Plasma 9.3 mg/dL 8.9-10.5 [facility] ([facility]) Globulin [Mass/volume] in Serum by calculation 1.8 g/dL 1 .9-3.7 Below low normal [facility] ([facility]) ID Date Data Source [id number] 06/07/2020 02:42:00 PM EST [facility] ([facility]) Name Value Range Interpretation Code Description Data Dora rce(s) Supporting Document(s) Vitamin D+Metabolites [Mass/volume] in Serum or Plasma 51.63 ng/mL 30 -100 [facility] ([facility]) <content>Recommended Levels for Circulat ing 25-hydroxy Vitamin D:</content>
<content>Vitamin D Status 25-OH Vitamin D Test Result</content>
<content>Deficient <10ng/mL</content>
<content>Insufficient 10- 29ng/mL</content>
<content>Sufficient 30-100ng/mL</content>
<content>Potential Intoxication >100ng/mL</content>
<content>A pediatric reference range has not been established using this method.</content>
<content></content> Parathyrin.intact [Mass/volume] in Serum or Plasma 59.0 pg/mL 18.5-88 .0 [facility]) ID Date Data Source [id number] 05/09/2020 10:00:00 AM EST [facility] ([facility]) Name Value Range Interpretation Code Description Data Dora rce(s) Supporting Document(s) Coronavirus 2019 Nasopharygeal Laboratory test result [facility] ([facility]) This nucleic acid amplification test was developed and its performance characteristics determined by [facility]. Nucleic acid amplification tests include PCR and TMA. This test has not been FDA cleared or approved. This test has been authorized by FDA under an Emergency Use Authorization (EUA). This test is only authorized for the duration of time the declaration that circumstances exist justifying the authorization of the emergency use of in vitro diagnostic tests for detection of SARS-CoV-2 virus and/or diagnosis of COVID-19 infection under section 564(b)(1) of the Act, 21 U.S.C. 360bbb-3 (b) (1), unless the authorization is terminated or revoked sooner. When diagnostic testing is negative, the possibility of a false negative result should be considered in the context of a patient's recent exposures and the presence of clinical signs and symptoms consistent with COVID-19. An individual without symptoms of COVID-19 and who is not shedding SARS-CoV-2 virus would expect to have a negative (not detected) result in this assay. Performed at: [facility] [address] [id number] Core Feeder: Wilma Goldberg MD, Phone: [phone] Not Detected ID Date Data Source [id number] 05/09/2020 10:00:00 AM EST [facility] Name Value Range Interpretation Code Description Data Dora rce(s) Supporting Document(s) SARS coronavirus 2 RNA [facility] This lab was ordered by [facility] and reported by [facility]. ID Date Data Source [id number] 04/05/2020 11:42:00 AM EDT [facility] ([facility]) Name Value Range Interpretation Code Description Data Dora rce(s) Supporting Document(s) Platelets [#/volume] in Blood by Automated count 252 10 150-450 [facility] ([facility]) Prothrombin time (PT) 28.8 s 24.2-38.5 MED [facility] ([facility]) ID Date Data Source [id number] 04/05/2020 11:42:00 AM EDT [facility] ([facility]) Name Value Range Interpretation Code Description Data Dora rce(s) Supporting Document(s) Inr 1.00 [facility] ([facility]) THERAPUTIC HUMAN INR VALUES INDICATIONS NORMAL RANGES PROPHYLAXIS/TREATMENT OF: VENOUS THROMBOSIS 2.0-3.0 PULMONARY EMBOLISM 2.0-3.0 PREVENTION OF SYSTEMIC EMBOLISM FROM: TISSUE HEART VALVES 2.0-3.0 ACUTE MYOCARDIAL INFARCTION 2.0-3.0 VALVULAR HEART DISEASE 2.0-3.0 ATRIAL FIBRILLATION 2.0-3.0 MECHANICAL VALVES(HIGH RISK) 2.5-3.5 RECURRENT MYOCARDIAL INFARCTION 2.5-3.5 Prothrombin Time 13.4 s 12.5-14.3 [facility] ([facility]) ID Date Data Source [id number] 03/14/2020 10:00:00 AM EDT [facility] ([facility]) Name Value Range Interpretation Code Description Data Dora rce(s) Supporting Document(s) Coronavirus 2019 Nasopharygeal Laboratory test result [facility] ([facility]) This nucleic acid amplification test was developed and its performance characteristics determined by [facility]. Nucleic acid amplification tests include PCR and TMA. This test has not been FDA cleared or approved. This test has been authorized by FDA under an Emergency Use Authorization (EUA). This test is only authorized for the duration of time the declaration that circumstances exist justifying the authorization of the emergency use of in vitro diagnostic tests for detection of SARS-CoV-2 virus and/or diagnosis of COVID-19 infection under section 564(b)(1) of the Act, 21 U.S.C. 360bbb-3 (b) (1), unless the authorization is terminated or revoked sooner. When diagnostic testing is negative, the possibility of a false negative result should be considered in the context of a patient's recent exposures and the presence of clinical signs and symptoms consistent with COVID-19. An individual without symptoms of COVID-19 and who is not shedding SARS-CoV-2 virus would expect to have a negative (not detected) result in this assay. Performed at: RN - [facility] [address] [id number] Core Feeder: Wilma Goldberg MD, Phone: [phone] Not Detected ID Date Data Source [id number] 03/14/2020 10:00:00 AM EDT [facility] Name Value Range Interpretation Code Description Data Dora rce(s) Supporting Document(s) SARS coronavirus 2 RNA [facility] This lab was ordered by [facility] and reported by [facility]. ID Date Data Source [id number] 03/13/2020 11:54:[facility]AM: 03/13/2020BILATERAL DIAGNO STIC TOMOSYNTHESIS 3D DIGITAL MAMMOGRAM WITH CAD COMPARISON: Mammogram exams dating back to 02/09/2015 INDICATION: Left breast intermittent tenderness medially for one month. LAST CLINICAL BREAST EXAM: 02/22 L[facility] Breast Cancer Risk Evaluation Tool (Tyrer-Cuzick Model v.8)Lifetime risk this patient (to age 85): 3.8%Lifetime population risk (to age 85): 4.9%Probability BRCA 1: 0%Probability BRCA 2: 0.02% TECHNIQUE: Craniocaudal and medial lateral oblique 3D digital mammograms were performed using tomosynthesis and computer-aided detection. FINDINGS: The breast tissue is almost entirely fatty. No primary or secondary signs of malignancy are seen. In particular, no change is seen in the left breast. IMPRESSION: Normal mammogram. Clinical follow-up for the patient's breast tenderness is recommended. Recommend routine mammogram in one year. BI-RADS 1 - NEGATIVE Professional interpretation performed at Dr. Hari Agarwal [facility] .End of diagnostic report for accession: [id number] Interpreted: Marlene Josue MDTranscribed: 03/13/2020 11:51 AMSigned: 03/13/2020 11:54 AM Marlene Joseu MD [facility] # [id number] BILL # [id number] [facility] Name Value Range Interpretation Code Description Data Dora rce(s) Supporting Document(s) Procedure Social History Code Duration Value Status Description Data Source(s ) Smoking 02/22/2021 12:00:00 AM EDT Never smoked tobacco (findi ng) completed Never smoked tobacco (finding) [facility] Smoking 10/31/2020 12:00:00 AM EDT Patient has never smoked co mpleted Patient has never smoked [facility] ([facility]) Smoking 09/19/2020 12:00:00 AM EDT Never smoked tobacco (findi ng) completed Never smoked tobacco (finding) [facility] ([facility]) Smoking 09/19/2020 12:00:00 AM EDT Never smoked tobacco (findi ng) completed Never smoked tobacco (finding) [facility] ([facility]) Smoking 09/06/2020 12:00:00 AM EST Never smoked tobacco (findi ng) completed Never smoked tobacco (finding) [facility] ([facility]) Smoking 08/24/2020 12:00:00 AM EST Never smoked tobacco (findi ng) completed Never smoked tobacco (finding) [facility] ([facility]) ETOH Use 03/13/2020 12:00:00 AM EDT Never used alcohol complete d Never used alcohol [facility] ([facility]) Vital Signs ID Date Data Source [id number] Name Value Range Interpretation Code Description Data Source(s) Body temperature 97.2 [degF] 97.2 [degF] [facility] ([facility]) Body weight 230.50 [lb_av] 230.50 [lb_av] [facility] T ([facility] Heart rate 70 /min 70 /min [facility] ([facility]) Systolic blood pressure 138 mm[Hg] 138 mm[Hg] M EDENT ([facility]) Diastolic blood pressure 86 mm[Hg] 86 mm[Hg] [facility] ([facility]) Oxygen saturation in Arterial blood by Pulse oximetry 98 % 98 % [facility] Systolic blood pressure 131 mm[Hg] 131 mm[Hg] G REENWAY ([facility]) Diastolic blood pressure 76 mm[Hg] 76 mm[Hg] [facility] ([facility]) Heart rate 98 /min 98 /min [facility] ([facility]) Body temperature 97.9 [degF] 97.9 [degF] [facility]) Body height 64 [in_i] 64 [in_i] [facility] ([facility]) Body weight 230 [lb_av] 230 [lb_av] [facility] ([facility]) Body mass index (BMI) [Ratio] 39.5 kg/m2 39.5 k g/m2 [facility] ([facility]) Body surface area Derived from formula 2.08 m2 2.08 m2 [facility] ([facility]) PhenX - pain, abdominal - type and intensity protocol 5 5 [facility] ([facility]) Oxygen saturation in Arterial blood by Pulse oximetry 99 % 99 % [facility] ([facility]) Inhaled oxygen flow rate 0 L/min 0 L/min [facility] ([facility]) Inhaled oxygen concentration 21 % 21 % [facility] ([facility]) Body weight 246.00 [lb_av] 246.00 [lb_av] MEDEN T ([facility]) Heart rate 96 /min 96 /min [facility] ([facility]) Systolic blood pressure 130 mm[Hg] 130 mm[Hg] M EDENT ([facility]) Diastolic blood pressure 68 mm[Hg] 68 mm[Hg] [facility] ([facility]) Oxygen saturation in Arterial blood by Pulse oximetry 99 % 99 % [facility] ([facility]) Body temperature 97.2 [degF] 97.2 [degF] [facility] ([facility]) Body weight 246.31 [lb_av] 246.31 [lb_av] MEDEN T ([facility]) Heart rate 77 /min 77 /min [facility] ([facility]) Systolic blood pressure 139 mm[Hg] 139 mm[Hg] M EDENT ([facility]) Diastolic blood pressure 69 mm[Hg] 69 mm[Hg] [facility] ([facility]) Oxygen saturation in Arterial blood by Pulse oximetry 99 % 99 % [facility] ([facility]) Body height 62 [in_i] 62 [in_i] [facility] ([facility]) 5'2" Body weight 238.00 [lb_av] 238.00 [lb_av] MEDEN T ([facility]) Body mass index (BMI) [Ratio] 43.5 kg/m2 43.5 k g/m2 [facility] ([facility]) Systolic blood pressure 146 mm[Hg] 146 mm[Hg] M EDENT ([facility]) Diastolic blood pressure 86 mm[Hg] 86 mm[Hg] [facility] ([facility]) Heart rate 99 /min 99 /min [facility] ([facility]) Body temperature 96.6 [degF] 96.6 [degF] [facility] ([facility]) Body temperature 35.9 Tiki 35.9 Tiki MED[facility] ( [facility]) Oxygen saturation in Arterial blood by Pulse oximetry 97 % 97 % [facility] ([facility]) Body temperature 96.6 [degF] 96.6 [degF] [facility] ([facility]) Body height 62.5 [in_i] 62.5 [in_i] [facility] ([facility]) 5'2.50" Body weight 236.50 [lb_av] 236.50 [lb_av] MEDEN T ([facility]) Body mass index (BMI) [Ratio] 42.6 kg/m2 42.6 k g/m2 [facility] ([facility]) Body temperature 97.2 [degF] 97.2 [degF] [facility] ([facility]) Body weight 247.00 [lb_av] 247.00 [lb_av] MEDEN T ([facility]) Heart rate 89 /min 89 /min [facility] ([facility]) Systolic blood pressure 142 mm[Hg] 142 mm[Hg] M EDENT ([facility]) Diastolic blood pressure 74 mm[Hg] 74 mm[Hg] [facility] ([facility]) Body height 63 [in_i] 63 [in_i] [facility] 5'3" Oxygen saturation in Arterial blood by Pulse oximetry 98 % 98 % [facility] ([facility]) Loraine body weight 115 [lb_av] 115 [lb_av] MEDEN T ([facility]) Body mass index (BMI) [Ratio] 43.7 kg/m2 43.7 k g/m2 [facility] ([facility]) Body height 62.00 [in_i] 62.00 [in_i] [facility] ([facility] 5'2" Body weight 238.00 [lb_av] 238.00 [lb_av] MEDEN T ([facility]) Body mass index (BMI) [Ratio] 43.5 kg/m2 43.5 k g/m2 [facility] ([facility]) Systolic blood pressure 154 mm[Hg] 154 mm[Hg] M EDENT ([facility]) Diastolic blood pressure 74 mm[Hg] 74 mm[Hg] [facility] ([facility]) Heart rate 110 /min 110 /min [facility] ([facility]) Body temperature 97.1 [degF] 97.1 [degF] [facility] ([facility]) Body temperature 36.2 Tiki 36.2 Tiki [facility] ( [facility]) Oxygen saturation in Arterial blood by Pulse oximetry 97 % 97 % [facility] ([facility]) Systolic blood pressure 144 mm[Hg] 144 mm[Hg] G [facility]AY [facility] Diastolic blood pressure 78 mm[Hg] 78 mm[Hg] [facility] ([facility]) Heart rate 112 /min 112 /min [facility] ([facility]) Heart rate rhythm 1 1 [facility] Respiratory rate 19 /min 19 /min [facility] ([facility] Body temperature 98.1 [degF] 98.1 [degF] [facility] ([facility]) Body weight 236 [lb_av] 236 [lb_av] [facility] ([facility]) PhenX - pain, abdominal - type and intensity protocol 2 2 [facility] ([facility]) Oxygen saturation in Arterial blood by Pulse oximetry 97 % 97 % [facility] ([facility]) Inhaled oxygen flow rate 0 L/min 0 L/min [facility] ([facility]) Inhaled oxygen concentration 21 % 21 % [facility] ([facility]) Systolic blood pressure 158 mm[Hg] 158 mm[Hg] G [facility] ([facility]) Diastolic blood pressure 86 mm[Hg] 86 mm[Hg] [facility] ([facility]) Diastolic blood pressure 80 mm[Hg] 80 mm[Hg] [facility] ([facility]) Systolic blood pressure 164 mm[Hg] 164 mm[Hg] G [facility] ([facility]) Systolic blood pressure 164 mm[Hg] 164 mm[Hg] G [facility] ([facility]) Diastolic blood pressure 76 mm[Hg] 76 mm[Hg] [facility] ([facility]) Heart rate 84 /min 84 /min [facility] ([facility]) Respiratory rate 21 /min 21 /min [facility] ([facility]) Body temperature 97.3 [degF] 97.3 [degF] GREENW ([facility]) Body weight 241 [lb_av] 241 [lb_av] [facility] ([facility]) PhenX - pain, abdominal - type and intensity protocol 5 5 [facility] ([facility]) Oxygen saturation in Arterial blood by Pulse oximetry 98 % 98 % [facility] ([facility]) Inhaled oxygen flow rate 0 L/min 0 L/min [facility] ([facility]) Inhaled oxygen concentration 21 % 21 % [facility] ([facility]) Body weight 248.00 [lb_av] 248.00 [lb_av] MEDEN T ([facility]) Heart rate 108 /min 108 /min [facility] ([facility]) Body height 63 [in_i] 63 [in_i] [facility] ([facility]) 5'3" Oxygen saturation in Arterial blood by Pulse oximetry 96 % 96 % [facility] ([facility]) Loraine body weight 115 [lb_av] 115 [lb_av] MEDEN T ([facility]) Body mass index (BMI) [Ratio] 43.9 kg/m2 43.9 k g/m2 [facility] ([facility]) Systolic blood pressure 168 mm[Hg] 168 mm[Hg] [facility]) Diastolic blood pressure 98 mm[Hg] 98 mm[Hg] [facility] ([facility]) Systolic blood pressure 194 mm[Hg] 194 mm[Hg] [facility] BP check in office Diastolic blood pressure 88 mm[Hg] 88 mm[Hg] [facility] ([facility]) BP check in office PhenX - pain, abdominal - type and intensity protocol 0 0 [facility] ([facility]) Unable to collect vitals due to Covid 19 pandemic. Body temperature 97.3 [degF] 97.3 [degF] [facility] ([facility] Body height 62.00 [in_i] 62.00 [in_i] [facility] 5'2" Body mass index (BMI) [Ratio] 43.7 kg/m2 43.7 k g/m2 [facility] ([facility]) Systolic blood pressure 164 mm[Hg] 164 mm[Hg] M EDENT ([facility]) Diastolic blood pressure 76 mm[Hg] 76 mm[Hg] [facility] ([facility]) Heart rate 115 /min 115 /min [facility] Body temperature 97.8 [degF] 97.8 [degF] [facility] ([facility]) Body weight 239.00 [lb_av] 239.00 [lb_av] MEDEN T ([facility]) Body temperature 36.6 Tiki 36.6 Tiki MED[facility] ( [facility]) Oxygen saturation in Arterial blood by Pulse oximetry 99 % 99 % [facility] Body temperature 97.3 [degF] 97.3 [degF] [facility] ([facility]) Body weight 243.38 [lb_av] 243.38 [lb_av] MEDEN T ([facility]) Heart rate 108 /min 108 /min [facility] Body height 63 [in_i] 63 [in_i] [facility] ([facility]) 5'3" Oxygen saturation in Arterial blood by Pulse oximetry 99 % 99 % [facility] ([facility]) Loraine body weight 115 [lb_av] 115 [lb_av] MEDEN T ([facility]) Body mass index (BMI) [Ratio] 43.1 kg/m2 43.1 k g/m2 [facility] ([facility]) Body temperature 96.2 [degF] 96.2 [degF] [facility] ([facility] Body temperature 98.6 [degF] 98.6 [degF] [facility] ([facility]) Body weight 244.00 [lb_av] 244.00 [lb_av] MEDEN T ([facility]) Heart rate 102 /min 102 /min [facility] ([facility]) Oxygen saturation in Arterial blood by Pulse oximetry 98 % 98 % [facility] ([facility]) Body height 62.00 [in_i] 62.00 [in_i] [facility] 5'2" Body weight 240.00 [lb_av] 240.00 [lb_av] MEDEN T ([facility]) Body mass index (BMI) [Ratio] 43.9 kg/m2 43.9 k g/m2 [facility] ([facility]) Systolic blood pressure 169 mm[Hg] 169 mm[Hg] M EDENT ([facility]) Diastolic blood pressure 99 mm[Hg] 99 mm[Hg] [facility] ([facility]) Heart rate 77 /min 77 /min [facility] ([facility]) Body temperature 97.2 [degF] 97.2 [degF] [facility] ([facility]) Body temperature 36.2 Tiki 36.2 Tiki [facility] ( [facility]) Patient Treatment Plan of Care Planned Activity Planned Date Details Description Data Source (s) gabapentin 300 MG Oral Capsule 02/22/2021 12:00:00 AM [facility] ([facility]) Losartan Potassium 100 MG Oral Tablet 02/22/2021 12:00:00 AM [facility] ([facility]) Spironolactone 50 MG Oral Tablet 02/22/2021 12:00:00 AM T [facility] ([facility]) 200 ACTUAT Albuterol 0.09 MG/ACTUAT Metered Dose Inhal er [Ventolin] 02/22/2021 12:00:00 AM [facility] ([facility]) 24 HR Diltiazem Hydrochloride 180 MG Extended Release Oral Capsule 02/22/2021 12:00:00 AM [facility] ([facility]) Nystatin 100 UNT/MG Topical Powder 02/22/2021 12:00:00 AM [facility] ([facility]) Nystatin 213866 UNT/ML Topical Cream 02/22/2021 12:00:00 AM EDT [facility] ([facility]) Spironolactone 50 MG Oral Tablet 09/19/2020 12:00:00 AM EDT [facility] ([facility]) Losartan Potassium 100 MG Oral Tablet 09/19/2020 12:00:00 AM EDT [facility] ([facility]) Spironolactone 25 MG Oral Tablet 09/06/2020 12:00:00 AM EST [facility] ([facility]) 24 HR Diltiazem Hydrochloride 180 MG Extended Release Oral Capsule 09/06/2020 12:00:00 AM EST [facility] ([facility]) Losartan Potassium 100 MG Oral Tablet 09/06/2020 12:00:00 AM EST [facility] ([facility]) Cyclobenzaprine hydrochloride 10 MG Oral Tablet 08/24/2020 12:00:00 AM EST [facility] ([facility]) meloxicam 7.5 MG Oral Tablet [Mobic] 08/24/2020 12:00:00 AM EST [facility] ([facility]) Losartan Potassium 100 MG Oral Tablet 08/24/2020 12:00:00 AM EST [facility] ([facility]) Losartan Potassium 50 MG Oral Tablet 08/24/2020 12:00:00 AM EST [facility] ([facility]) 24 HR Diltiazem Hydrochloride 180 MG Extended Release Oral Capsule 08/21/2020 12:00:00 AM EST [facility] ([facility]) gabapentin 300 MG Oral Capsule 07/17/2020 12:00:00 AM EST [facility] ([facility]) gabapentin 300 MG Oral Capsule 03/14/2020 12:00:00 AM EDT [facility] ([facility]) 24 HR Diltiazem Hydrochloride 180 MG Extended Release Oral Capsule 02/10/2020 12:00:00 AM EDT [facility] ([facility]) Cyclobenzaprine hydrochloride 10 MG Oral Tablet 12/19/2019 12:00:00 AM EDT [facility] ([facility]) meloxicam 7.5 MG Oral Tablet [Mobic] 12/19/2019 12:00:00 AM EDT [facility] ([facility]) Losartan Potassium 50 MG Oral Tablet 12/13/2019 12:00:00 AM EDT [facility] ([facility]) gabapentin 300 MG Oral Capsule 10/14/2019 12:00:00 AM [facility] ([facility])
[2021-05-09] MEDS ORDERED: LOSA100T50 (09:13)
[2021-05-09] MEDS ORDERED: GABA-282 (09:13)
[2021-05-09] MEDS ORDERED: DILT1CAP3 (09:13)
[2021-05-09] MEDS ORDERED: LEVO100T5 (09:13)
[2021-05-09] MEDS ORDERED: MELO7.5T35 (09:13)
[2021-05-09] MEDS ORDERED: SPIR50TA4 (09:13)
[2021-05-09 09:48] LABS: OSMOLALITY URINE 149 MOSM/KG (50-1400)
[2021-05-09 09:54] LABS: BASO % 0.4 % (0.0-1.0); EOS # 0.4 10^3/uL (0.0-0.5); EOS % 4.2 % (0.0-3.0); HEMATOCRIT 36.1 % (36.0-47.0); HEMOGLOBIN 11.5 g/dl (12.0-15.5); LYMPH # 1.8 10^3/uL (1.5-5.0); LYMPH % 19.4 % (24.0-44.0); MEAN CORPUSCULAR HEMOGLOBIN 29.1 pg (27.0-33.0); MEAN CORPUSCULAR HGB CONC 31.9 g/dl (32.0-36.5); MEAN CORPUSCULAR VOLUME 91.4 fl (80.0-96.0); MONO # 0.6 10^3/uL (0.0-0.8); MONO % 6.5 % (2.0-8.0); NEUTROPHILS # 6.3 10^3/uL (1.5-8.5); NEUTROPHILS % 69.1 % (36.0-66.0); PLATELET COUNT, AUTOMATED 246 10^3/uL (150-450); RED BLOOD COUNT 3.95 10^6/uL (4.00-5.40); WHITE BLOOD COUNT 9.2 10^3/uL (4.0-10.0)
[2021-05-09 09:59] LABS: CREATININE,RANDOM URINE 15.6 MG/DL; POTASSIUM RANDOM URINE 14.5 MEQ/L; SODIUM,RANDOM URINE 38 MEQ/L; TOTAL PROTEIN,RANDOM URINE < 5.0 MG/DL (0.0-12.0)
[2021-05-09 10:21] LABS: ALBUMIN 3.7 GM/DL (3.2-5.2); CALCIUM LEVEL 8.9 MG/DL (8.8-10.2); CREATININE FOR GFR 1.35 MG/DL (0.55-1.30); GLOMERULAR FILTRATION RATE 40.9 (>39); PHOSPHORUS LEVEL 3.3 MG/DL (2.5-4.9); POTASSIUM SERUM 4.7 MEQ/L (3.5-5.1)
[2021-05-09 10:27] LABS: ALBUMIN 3.9 GM/DL (3.2-5.2); BILIRUBIN,TOTAL 0.4 MG/DL (0.2-1.0); CALCIUM LEVEL 9.3 MG/DL (8.8-10.2); CREATININE FOR GFR 1.45 MG/DL (0.55-1.30); GLOMERULAR FILTRATION RATE 37.7 (>39); MAGNESIUM LEVEL 2.2 MG/DL (1.8-2.4); POTASSIUM SERUM 4.7 MEQ/L (3.5-5.1); TOTAL PROTEIN 7.2 GM/DL (6.4-8.2); URIC ACID 5.6 MG/DL (2.6-6.0)
--- OUTSIDE RECORDS SUMMARY | 2021-05-09 11:07 | CCD ---
Author Author [facility] Organization [facility] Address Unknown Phone Unavailable Care Team Providers Care Foreman/Project Manager Name Role Phone Joya, A Marie CHANNELER Unavailable Unavailable Joya, A Marie CHANNELER Unavailable Unavailable Joya, A Marie CHANNELER Unavailable Unavailable Joya, A Marie CHANNELER Unavailable Unavailable Joya, A Marie CHANNELER Unavailable Unavailable Joya, A Marie CHANNELER Unavailable Unavailable Joya, A Marie CHANNELER Unavailable Unavailable Joya, A Marie CHANNELER Unavailable Unavailable Joya, A Marie CHANNELER Unavailable Unavailable Joya, A Marie CHANNELER Unavailable Unavailable Joya, A Marie CHANNELER Unavailable Unavailable Joya, A Marie CHANNELER Unavailable Unavailable Joya, A Marie CHANNELER Unavailable Unavailable Joya, A Marie CHANNELER Unavailable Unavailable Joya, A Marie CHANNELER Unavailable Unavailable Joya, A Marie CHANNELER Unavailable Unavailable Joya, A Marie CHANNELER Unavailable Unavailable Joya, A Marie CHANNELER Unavailable Unavailable Joya, A Marie CHANNELER Unavailable Unavailable Joya, A Marie CHANNELER Unavailable Unavailable Joya, A Marie CHANNELER Unavailable Unavailable Joya, A Marie CHANNELER Unavailable Unavailable Joya, A Marie CHANNELER Unavailable Unavailable Joya, A Marie CHANNELER Unavailable Unavailable Joya, A Marie CHANNELER Unavailable Unavailable Joya, A Marie CHANNELER Unavailable Unavailable Luis Armando CAVAZOS MD Unavailable [...] KATHARINALuis Armando PERERA MD Unavailable Unavailable DI KATHARINA, Luis Armando [...] KATHARINALuis Armando PERERA MD Unavailable Unavailable DI KATHARINALusi Armando MD Unavailable Unavailable DI KATHARINA, Luis [...] KATHARINA, Luis Armando ROSARIO MD Unavailable Unavailable Candy, J Michelle RDH Unavailable Unavailable Candy, J Michelle RDH Unavailable Unavailable Whitfield, A Adrienne CHANNELER Unavailable Unavailable Zeb, A Adrienne CHANNELER Unavailable Unavailable Whitfield, A Adrienne CHANNELER Unavailable Unavailable Whitfield, A Adrienne CHANNELER Unavailable Unavailable Whitfield, A Adrienne CHANNELER Unavailable Unavailable Whitfield, A Adrienne CHANNELER Unavailable Unavailable Zeb, A Adrienne CHANNELER Unavailable Unavailable Zeb, A Adrienne CHANNELER Unavailable Unavailable Zeb, A Adrienne CHANNELER Unavailable Unavailable Whitfield, A Adrienne CHANNELER Unavailable Unavailable Whitfield, A Adrienne CHANNELER Unavailable Unavailable Zeb, A Adrienne CHANNELER Unavailable Unavailable Whitfield, A Adrienne CHANNELER Unavailable Unavailable Whitfield, A Adrienne CHANNELER Unavailable Unavailable Whitfield, A Adrienne CHANNELER Unavailable Unavailable Whitfield, A Adrienne CHANNELER Unavailable Unavailable Zeb, A Adrienne CHANNELER Unavailable Unavailable Whitfield, A Adrienne CHANNELER Unavailable Unavailable Whitfield, A Adrienne CHANNELER Unavailable Unavailable Whitfield, A Adrienne CHANNELER Unavailable Unavailable Zeb, A Adrienne CHANNELER Unavailable Unavailable Zeb, A Adrienne CHANNELER Unavailable Unavailable Zeb, A Adrienne CHANNELER Unavailable Unavailable Zeb, A Adrienne CHANNELER Unavailable Unavailable Whitfield, A Adrienne CHANNELER Unavailable Unavailable Whitfield, A Adrienne CHANNELER Unavailable Unavailable Erlin WANG MD Unavailable Unavailable [...] WANG MD Unavailable Unavailable Erlin WANG LUCILLE Unavailable [...] E LUCILLE Unavailable Unavailable Erlin WANG LUCILLE Unavailable Unavailable Erlin WANG LUCILLE Unavailable Unavailable Erlin WANG LUCILLE MD Unavailable Unavailable Erlin WANG LUCILLE MD Unavailable Unavailable Erlin WANG LUCILLE MD Unavailable Unavailable Erlin WANG LUCILLE Unavailable Unavailable KATHLEEN E LUCILLE Unavailable Unavailable Erlin WANG LUCILLE Unavailable Unavailable Erlin WANG LUCILLE Unavailable Unavailable Erlin WANG LUCILLE Unavailable Unavailable Erlin WANG LUCILLE MD Unavailable Unavailable Erlin WANG LUCILLE Unavailable Unavailable Erlin WANG LUCILLE Unavailable Unavailable KATHLEEN E LUCILLE Unavailable Unavailable KATHLEEN E LUCILLE Unavailable Unavailable KATHLEEN E LUCILLE Unavailable Unavailable KATHLEEN E LUCILLE Unavailable Unavailable Erlin WANG LUCILLE MD Unavailable Unavailable Erlin WANG LUCILLE MD Unavailable Unavailable Erlin WANG LUCILLE Unavailable Unavailable Erlin WANG LUCILLE Unavailable Unavailable KATHLEEN E LUCILLE Unavailable Unavailable KATHLEEN E LUCILLE Unavailable Unavailable KATHLEEN E LUCILLE Unavailable Unavailable KATHLEEN E LUCILLE Unavailable Unavailable KATHLEEN E LUCILLE Unavailable Unavailable KATHLEEN E LUCILLE Unavailable Unavailable KATHLEEN E LUCILLE Unavailable Unavailable Ray, L Benradine Unavailable Unavailable Ray, L Bernadine Unavailable Unavailable [...] Ray, L Bernadine Unavailable Unavailable Ray, L Berandine Unavailable Unavailable Ray, L Bernadine Unavailable Unavailable [...] Unavailable Unavailable Erlin WANG MD Unavailable Unavailable KATHLEEN E LUCILLE Unavailable Unavailable KATHLEEN, E LUCILLE Unavailable Unavailable KATHLEEN, E LUCILLE Unavailable Unavailable KATHLEEN E LUCILLE Unavailable Unavailable KATHLEEN, E LUCILLE Unavailable Unavailable KATHLEEN, E LUCILLE Unavailable Unavailable KATHLEEN E LUCILLE Unavailable Unavailable KATHLEEN, E LUCILLE MD Unavailable Unavailable KATHLEEN E LUCILLE [...] E LUCILLE Unavailable Unavailable KATHLEEN E LUCILLE FIORE Unavailable Unavailable KATHLEEN, E LUCILLE MD Unavailable Unavailable Erlin WANG MD Unavailable Unavailable Erlin WANG MD Unavailable Unavailable KATHLEENErlin MD Unavailable Unavailable NELLY, 0000{ Unavailable Unavailable Pramod, A Jaida DDS Unavailable Unavailable Pramod, A Jaida DDS Unavailable Unavailable Pramod, A Jaida DDS Unavailable Unavailable Pramod, A Jaida DDS Unavailable Unavailable [facility][id number], [id number] Unavailable [facility]_[id number], [id number] Unavailable [facility][id number], [id number] Unavailable [id number], [id number] Unavailable [facility][id number], [id number] Unavailable Jewel PATEL MD Unavailable Unavailable AMANDA, [...] AMANDA, Jewel CORTEZ MD Unavailable Unavailable AMANDA, eJwel CORTEZ MD Unavailable Unavailable Jewel PATEL MD Unavailable Unavailable Jewel PATEL MD Unavailable Unavailable Jewel PATEL MD Unavailable Unavailable Jewel PATEL MD Unavailable Unavailable Jewel PATEL MD Unavailable Unavailable AMANDA, Jewel CORTEZ MD Unavailable Unavailable AMANDA, Jewel CORTEZ MD Unavailable Unavailable AMANDA, Jewel CORTEZ MD Unavailable Unavailable AMANDA, Jewel CORTEZ MD Unavailable Unavailable AMANDA, Jewel CORTEZ MD Unavailable Unavailable AMANDA, Jewel CORTEZ MD Unavailable Unavailable AMANDA, Jewel CORTEZ MD Unavailable Unavailable Jewel PATEL MD Unavailable Unavailable Jewel PATEL MD Unavailable Unavailable AMANDAJewel BARRERA MD Unavailable Unavailable AMANDAJewel BARRERA MD Unavailable [...] Jewel CORTEZ MD Unavailable Unavailable AMANDA, Jewel CORTZE MD Unavailable Unavailable AMANDA, Jewel CORTEZ MD [...] Jewel CORTEZ MD Unavailable Unavailable Kravec, Blaze MACHINE PACKER Unavailable Unavailable Kravec, Blaze MACHINE PACKER Unavailable Unavailable Kravec, Blaze MACHINE PACKER Unavailable Unavailable Kravec, Blaze MACHINE PACKER Unavailable Unavailable Kravec, Blaze MACHINE PACKER Unavailable Unavailable Kravec, Blaze MACHINE PACKER Unavailable Unavailable Kravec, Blaze MACHINE PACKER Unavailable Unavailable Ray, L Bernadine Unavailable Unavailable [...] Ray, L Bernadine Unavailable Unavailable Ray, L Berndaine Unavailable Unavailable Ray, L Bernadine Unavailable Unavailable [...] Ray, L Bernadine Unavailable Unavailable Ray, L Ebrnadine Unavailable Unavailable Ray, L Bernadine Unavailable Unavailable Ray, L Bernadine Unavailable Unavailable Werksman, M Narcisa CHANNELER Unavailable Unavailable Werksman, M Narcisa CHANNELER Unavailable Unavailable Werksman, M Narcisa CHANNELER Unavailable Unavailable Werksman, M Narcisa CHANNELER Unavailable Unavailable Re-disclosure Warning The records that [...] is protected by Article 27-F of the [facility] Public Health law. If you continue you may have access to information: Regarding HIV / AIDS; Provided by facilities licensed or operated by the [facility] Office of Mental Health; or Provided by the [facility] Office for People With Developmental Disabilities. If such information is present, then the following [facility] mandated warning applies: This information has been [...] law may result in a fine or residential sentence or both. A general authorization for the release of medical or other information is NOT sufficient authorization for further disc losure. Advance Directives Directive Description Car Mover Exchange Operator Status Observation Descr iption Data Source(s) COVID Screening Performed completed [facility]OVI D [facility] given Pt Bill of Rights, Priv Prac, Ad Dir completed packet given Pt Bill of Rights, Priv Prac, Ad Dir [facility]) Note: Pt declined AD packet Ebola Screening Performed completed Ebol a Screening Performed [facility]) Note: Within the last month, have you tr aveled outside of the [place]? -NO Family History Family Member Name Family Member Gender Family Member Status Date o f Status Description Data Source(s) Unknown Male Problem [facility] ([facility]) Unknown Female Problem [facility] ([facility]) Encounters Encounter Providers Location Date Indications Data Source(s ) Outpatient Attender: DANA PATEL MD 05/23/2021 12:00:0 0 AM [facility] Outpatient Attender: 0000{ [place] 03/28/2021 10:13:00 AM E DT [facility] Outpatient Attender: LUCILLE WANG MD 03/28/2021 10 :13:00 AM EDT ANNUAL BREAST EXAM [facility] ANNUAL BREAST EXAM Outpatient Attender: Marie Alvarado 03/05/2021 01:20:00 PM EDT [facility] ([facility]) <td ID="encounterTypeDescriptionID0">AHR </td><td>Fabian Ordoñez CHANNELER</td><td>[facility]</td><td>02/22/2021</td><td>9:55AM</td><td>11:07AM</td><td><content ID="encounterDiagnosisID0-0">Routine History and Physical</content>, <content ID="encounterDiagnosisID0-1">Hyperlipidemia</content>, <content ID="encounterDiagnosisID0-2">Hypothyroidism</content>, <content ID="encounterDiagnosisID0-3">Nonorganic Sleep Apnea Obstructive</content>, <content ID="encounterDiagnosisID0-4">Obesity Morbid</content>, <content ID="encounterDiagnosisID0-5">Dermatitis</content></td>Unknown Attender: Fabian VASQUEZP [facility] 02/22/2021 09:55:00 AM EDT - 02/22/2021 11:07:37 AM EDT DermatitisRoutine History and PhysicalNo norganic Sleep Apnea ObstructiveObesity MorbidHyperlipidemiaHypothyroidism [facility]) Dermatitis Routine History and Physical Nonorganic Sleep Apnea Obstructive Obesity Morbid Hyperlipidemia Hypothyroidism Outpatient Attender: Marie Alvarado 12/31/2020 11:20:00 AM EDT [facility] Outpatient Attender: LUCILLE WANG MD [facility] [place] 12/11/2020 10:00:00 AM EDT [facility] <td ID="encounterTypeDescriptionID0">Meggan rt Update</td><td>Bernadine Navarrete DO</td><td></td><td>12/05/2020</td><td>4:23PM</td><td>11:59PM</td><td></td>Unkno Attender: Bernadine Navarrete 12/05/2020 04:23:00 PM EDT - 12/05/2020 11:59:00 PM EDT [facility]) Unknown<td ID="encounterTypeDescriptionI D0">Chart Update</td><td>Narcisa Lane NP</td><td></td><td>11/28/2020</td><td>2:23PM</td><td>11:59PM</td><td></td> Attender: Narcisa Lane NP 11/28/2020 02:23:00 PM EDT - 11/28/2020 11:59:00 PM EDT [facility]) Outpatient Attender: Marie Alvarado 10/31/2020 01:20:00 PM EDT [facility] Outpatient Attender: MARLENE CAVAZOS MD [facility] [place] 10/31/2020 11:20:00 AM EDT [facility] Attender: Bernadine Navarrete 09/19/2020 01:30:00 PM EDT Lab [facility] Lab <td ID="encounterTypeDescriptionID0">Acu te Follow-up Well</td><td>Bernadine Navarrete DO</td><td>[facility]</td><td>09/19/2020</td><td>12:54PM</td><td>1:27PM</td><td><content ID="encounterDiagnosisID0-0">Essential Hypertension</content></td>Outpatient Attender: Bernadine Navarrete [facility] 09/19/2020 12:54:00 PM EDT - 09/19/2020 01:27:57 PM EDT Essential Hypertension [facility]) Essential Hypertension Outpatient<td ID="encounterTypeDescripti onID0">Acute Follow-up Well</td><td>Bernadine Navarrete DO</td><td>[facility]</td><td>09/06/2020</td><td>10:48AM</td><td>11:55AM</td><td><content ID="encounterDiagnosisID0-0">Essential Hypertension</content></td> Attender: Bernadine Navarrete [facility] 09/06/2020 10:48:00 AM EST - 09/06/2020 11:55:56 AM EST Essential Hypertension [facility]) Essential Hypertension Outpatient Attender: Marie Alvarado 08/29/2020 10:20:00 AM EST [facility] ([facility] Outpatient<td ID="encounterTypeDescripti onID2">Chronic Disease Follow- up</td><td>Bernadine Navarrete DO</td><td>[facility]</td><td>08/24/2020</td><td>9:15AM</td><td>10:14AM</td><td><content ID="encounterDiagnosisID2-0">Essential Hypertension</content>, <content ID="encounterDiagnosisID2-1">Hyperparathyroidism</content>, <content ID="encounterDiagnosisID2-2">Hypothyroidism</content>, <content ID="encounterDiagnosisID2-3">Nonorganic Sleep Apnea Obstructive</content>, <content ID="encounterDiagnosisID2-4">Obesity Morbid</content>, <content ID="encounterDiagnosisID2-5">Spinal Stenosis</content></td> Attender: Bernadine Navarrete [facility] 08/24/2020 09:15:00 AM EST - 08/24/2020 10:14:44 AM EST Nonorganic Sleep Apnea ObstructiveNonorganic Sleep Apnea ObstructiveNonorganic Sleep Apnea ObstructiveNonorganic Sleep Apnea ObstructiveSpinal StenosisSpinal StenosisSpinal StenosisSpinal StenosisObesity MorbidEssential Hypertension Obesity MorbidEssential HypertensionObesity MorbidEssential HypertensionObesity MorbidEssential HypertensionHyperparathyroidismHyperparathyroidismHyperparathyroidismHyperparath yroidismHypothyroidismHypothyroidismHypothyroidismHypothyroidism [facility]) Nonorganic Sleep Apnea Obstructive Nonorganic Sleep Apnea Obstructive Nonorganic Sleep Apnea Obstructive Nonorganic Sleep Apnea Obstructive Spinal Stenosis Spinal Stenosis Spinal Stenosis Spinal Stenosis Obesity Morbid Essential Hypertension Obesity Morbid Essential Hypertension Obesity Morbid Essential Hypertension Obesity Morbid Essential Hypertension Hyperparathyroidism Hyperparathyroidism Hyperparathyroidism Hyperparathyroidism Hypothyroidism Hypothyroidism Hypothyroidism Hypothyroidism Unknown<td ID="encounterTypeDescriptionI D1">Chart Update</td><td>Bernadine Navarrete DO</td><td></td><td>09/03/2020</td><td>08/24/2020 8:44AM</td><td>08/24/2020 11:59PM</td><td></td> Attender: Bernadine Navarrete 08/24/2020 08:44: 00 AM EST - 08/24/2020 11:59:00 PM EST [facility]) Outpatient Attender: Bernadine Navarrete 08/16/2020 11:36:00 AM EST lab [facility] lab Outpatient Attender: MARLENE CAVAZOS MD [facility] [place] 06/07/2020 12:40:00 PM EST [facility]: [facility] 06/07/2020 10:20:00 AM EST [facility] ([facility]) <td ID="encounterTypeDescriptionID3">D D ental Office Visit - 30</td><td>Jaida Benavidez DDS</td><td>[facility]</td><td>05/17/2020</td><td>1:36PM</td><td>2:23PM</td><td></td>Unknown Attender: Jaida Benavidez DDS [facility] 05/17/2020 01:36:00 PM EST - 05/17/2020 02:23:00 PM EST [facility]) Unknown<td ID="encounterTypeDescriptionI D4">H Adult Prophy</td><td>Michelle Gupta [facility]</td><td>[facility]</td><td>05/01/2020</td><td>11:25AM</td><td>2:21PM</td><td></td> Attender: Michelle Gupta [facility] 05/01/2020 11:25:00 AM EDT - 05/01/2020 02:21:00 PM EDT [facility]) Unknown<td ID="encounterTypeDescriptionI D5">[Patient Encounter]</td><td></td><td></td><td>05/01/2020</td><td>12:00AM</td><td>11:59PM< 05/01/2020 12:00:00 AM EDT - 05/01/2020 1 1:59:00 PM EDT [facility]) Unknown<td ID="encounterTypeDescriptionI D6">D Dental Office Visit - 30</td><td>Dental Resident DDS</td><td>[facility]</td><td>04/25/2020</td><td>9:51AM</td><td>11:12AM</td><td></td> Attender: [id number] [id number] 04/25/2020 09:51:00 AM EDT - 04/25/2020 11:12:00 AM EDT [facility]) <td ID="encounterTypeDescriptionID7">D E mergency-New</td><td>Dental Resident DDS</td><td>[facility]</td><td>04/16/2020</td><td>12:37PM</td><td>1:48PM</td><td></td>Unknown Attender: [phone] [id number] 04/16/2020 12:37:00 P M EDT - 04/16/2020 01:48:00 PM EDT [facility]) Outpatient Attender: Marie Alvarado 04/09/2020 02:20:00 PM EDT [facility] Unknown<td ID="encounterTypeDescriptionI D9">Chart Update</td><td>Adrienne Carrington NP</td><td></td><td>03/14/2020</td><td>02/10/2020 11:44AM</td><td>02/10/2020 11:59PM</td><td></td> Attender: Adrienne Carrington NP 03/14/2020 11 :44:00 AM EDT - 02/10/2020 11:59:00 PM EDT [facility]) Outpatient Attender: LUCILLE WANG MD [facility] [place] 03/13/2020 11:00:00 AM EDT [facility] Outpatient Attender: 0000{ [place] 03/13/2020 09:48:00 AM E DT [facility] Outpatient Attender: LUCILLE WANG MD 03/13/2020 09 :48:00 AM EDT ANNUAL BREAST EXAM [facility] ANNUAL BREAST EXAM Immunizations Vaccine Date Status Description Data Source(s) COVID-19 VACCINE Moderna 04/03/2021 12:00:00 AM EDT completed [facility] Vaccine Series Complete: YESThis Data wa s Submitted to [facility] Via [employer]. Tdap 02/22/2021 11:08:00 AM EDT completed <td ID="Iocjpechkazxp-Vbdcxhfhhww-HD7">Boostrix</td><td ID="ImmunizationDose- 0">2</td><td>02/22/2021</td><td ID="Vlnboojrpyxmr-EwwseOkeq-QK8">Left Deltoid</td><td></td><td ID="Dgwiaifztbydb-Yrjlyk-XP1">Complete (Administered)</td><td>[facility]</td><td ID="Slvryluicxwtm-Urxko-Jmmt-Comment-ID0"></td> [facility] ([facility]) COVID-19 VACCINE Moderna 09/17/2020 12:00:00 AM EDT completed [facility] Vaccine Series Complete: YESThis Data wa s Submitted to [facility] Via [employer]. COVID-19 VACCINE, MRNA-1273, LNP-S (MODERNA)/PF 09/17/2020 1 2:00:00 AM EDT completed [facility] Moderna COVID-19 08/17/2020 09:36:00 AM EST completed <td ID="Gyubxjkbsphlk-Kiuvmlnkozf-GQ62">Moderna COVID-19</td><td ID="ImmunizationDose-15">1</td><td>08/17/2020</td><td ID="Khswfqwvrgrxk-YqwesYcev-FO25"></td><td></td><td ID="Fhypozfuselfo-Kbisnb-CL30">Complete (Reported)</td><td>Patient</td><td ID="Rilsysbqkkzfo-Zcfkc-Gxvk-Comment-ID15"></td> [facility] ([facility]) COVID-19 VACCINE Moderna 08/17/2020 12:00:00 AM EST completed [facility] Vaccine Series Complete: NOThis Data was Submitted to [facility] Via [employer]. COVID-19 VACCINE, MRNA-1273, LNP-S (MODERNA)/PF 08/17/2020 1 2:00:00 AM EST completed [facility] Influenza, high dose seasonal 04/05/2020 03:10:00 PM EDT complet ed <td ID="Uqcbnibeeghgq-Uxhnaszxuse-KX28">Influenza, high-dose (over 65)</td><td ID="ImmunizationDose-14">4</td><td>04/05/2020</td><td ID="Ebzxqriqdovwi-PsxdoHpkm-AY26"></td><td></td><td ID="Izookwptzeoxa-Idrswv-DY14">Complete (Reported)</td><td>Patient</td><td ID="Yparbwyzljnux-Yiqig-Jyov-Comment-ID14"></td> [facility] ([facility] INFLUENZA VACCINE QUADRIVALENT (65 YR UP)/MF59 C.1/PF 04/05/2020 12:00:00 AM EDT completed [facility] Medications Medication Brand Name Start Date Product Form Dose Route Admi nistrative Instructions Pharmacy Instructions Status Indications Reaction Description Data Source(s) 240 mcg/0.7 mL 05/07/2021 12:00:00 AM EDT syringe 0 DIRECTED DIRECTED SOLD: 05/07/2021 [facility] Hydrocortisone 10 MG/ML / Neomycin 3.5 M G/ML / Polymyxin B 15654 UNT/ML Otic Solution 3.5-10,000-1 mg/mL-unit/mL-% NEOMYCIN/POLYMYXIN B/HYDROCORT [...] 0 MG Extended Release Oral Capsule [facility] ([facility]) Nystatin 100 UNT/MG Topical Powder Nystatin 826872 UNI T/GM External Powder Nystatin 902438 UNIT/GM External Powder 02/22/2021 12:00:00 AM EDT active nystatin 100 UNT/MG Topical Powd er [facility] ([facility]) 200 ACTUAT Albuterol 0.09 MG/ACTUAT Mete red Dose Inhaler [Ventolin] Ventolin HFA 108 (90 Base) MCG/ACT Inhalation Aerosol Solution Ventolin HFA 108 (90 Base) MCG/ACT Inhalation Aerosol Solution 02/22/2021 12:00:00 AM EDT active [id number] 200 ACTUAT albuter ol 0.09 MG/ACTUAT Metered Dose Inhaler [Ventolin] [facility] ([facility]) Nystatin 621358 UNT/ML Topical Cream Nystatin 601908 U NIT/GM External Cream Nystatin 422163 UNIT/GM External Cream 02/22/2021 12:00:00 AM EDT active nystatin 631686 UNT/ML Topical C ream [facility] ([facility]) 50 [...] TABLET BY MOUTH EVERY DAY SOLD: 01/14/2021 [facility] 100 mcg 01/13/2021 12:00:00 AM EDT tablet 90 TAKE ONE TABLET BY MOUTH EVERY DAY TAKE ONE TABLET BY MOUTH EVERY DAY SOLD: 04/23/2021 [facility] Cpap 12/31/2020 12:00:00 AM EDT active [...] 12/12/2020 12:00:00 AM EDT ORAL active [facility] ([facility] gabapentin 100 MG Oral Capsule Gabapentin 12/12/2020 12:00:00 AM EDT active [facility] ([facility]) 10 mg 12/12/2020 12:00:00 AM EDT [...] TABLET BY MOUTH EVERY DAY SOLD: 12/31/2020 [facility] 50 mg 09/20/2020 12:00:00 AM [...] TABLET BY MOUTH EVERY MORNING SOLD: 09/06/2020 [facility] 50 mg 08/24/2020 12:00:00 AM EST tablet 90 TAKE ONE TABLET BY MOUTH EVERY DAY TAKE ONE TABLET BY MOUTH EVERY DAY SOLD: 08/25/2020 [facility] Cyclobenzaprine hydrochloride 10 MG Oral Tablet CYCLOBENZAPR INE HCL 08/24/2020 12:00:00 AM EST tablet 90 TAKE ONE TABLET BY MOUTH AT BEDTIME TAKE ONE TABLET BY MOUTH AT BEDTIME SOLD: 08/25/2020 [facility] Losartan Potassium 100 MG Oral Tablet Losartan Potassium 100 MG Oral Tablet 08/24/2020 12:00:00 AM EST 1 aborted losartan potassium 100 MG Oral Tablet [facility] ([facility] Losartan Potassium 50 MG Oral Tablet Losartan Potassium 50 M G Oral Tablet 08/24/2020 12:00:00 AM EST 1 aborted losartan potassium 50 MG Oral Tablet [facility] ([facility]) Cyclobenzaprine hydrochloride 10 MG Oral Tablet CYCLOBENZAPR INE HCL 08/24/2020 12:00:00 AM EST tablet 90 TAKE ONE TABLET BY MOUTH AT BEDTIME TAKE ONE TABLET BY MOUTH AT BEDTIME SOLD: 12/10/2020 [facility] meloxicam 7.5 MG Oral Tablet [Mobic] Mobic 7.5 MG Oral Tablet Mobic 7.5 MG Oral Tablet 08/24/2020 12:00:00 AM EST 1 active meloxicam 7.5 MG Oral Tablet [Mobic] [facility]) Cyclobenzaprine hydrochloride 10 MG Oral Tablet Cyclobenzaprine HCl 10 MG Oral Tablet Cyclobenzaprine HCl 10 MG Oral Tablet 08/24/2020 12:00:00 AM EST 1 active cyclobenzaprine hydrochlorid e 10 MG Oral Tablet [facility] 180 mg 08/21/2020 12:00:00 AM EST capsule,extended releas e 24 hr 60 TAKE ONE CAPSULE BY MOUTH TWICE A DAY TAKE ONE CAPSULE BY MOUTH TWICE A DAY SOLD: 08/21/2020 [facility] 24 HR Diltiazem Hydrochloride 180 [...] TABLET BY MOUTH EVERY DAY SOLD: 04/16/2020 [facility] 100 mcg 01/02/2020 12:00:00 AM EDT [...] abort ed gabapentin 300 MG Oral Capsule [facility] ([facility]) Insurance Providers Payer name Policy type / Coverage type Policy ID Covered libertarian ID Covered libertarian's relationship to rockwell Policy [place] Plan Information [facility] Medigap Part B [id number] Family Dependent [id number] BS [place] Medig[place] Part B [id number] Self [id number] BLUE CROSS [id number] SP [id number] BCBS Indemnity Medigap Part B [id number] Self Medicare Part A of [place] Other 0 [id number] Self 0 Medicare [place] Other 0 [id number] Self 0 Medicare [place] Other 0 [id number] Self 0 Medicare [place] Other 0 [id number] Self 0 Medicare [place] Other 0 [id number] Self 0 Medicare [place] Other 0 [id number] Self 0 Medicare [place] Other 0 [id number] Self 0 Medicare Part B Medicare Primary [id number] Self [id number] Medicare Part B Medigap Part B [id number] Self [id number] Medicare Part B Medicare Primary [id number] [id number] Self [id number] Medicare Part [place] Other 0 [id number] Self 0 Medicare [place] Other 0 [id number] Self 0 Medicare [place] Other 0 [id number] Self 0 Medicare [place] Other 0 [id number] Self 0 Medicare Medicare Primary [id number] 2.16.840.1.215725.3.227. [id number] Self [id number] Medicare Medicare Primary [id number] 2.16.840.1.338331.3.227. [id number] Self [id number] Medicare Medicare Primary [id number] 2.16.840.1.196934.3.227. [id number] Self [id number] Medicare Part [place] Other 0 [id number] Self 0 [place] Primary [id number] Self 0 [id number] Medicare [place] Other 0 [id number] Self 0 MEDICARE [id number] SP [id number] A Medicare Part [place] Other 0 [id number] Self 0 Medicare [place] Other 0 [id number] Self 0 Medicare Medicare Primary [id number] 2.16.840.1.855517.3.227. [id number] Self [id number] Medicare Medicare Primary [id number] 2.16.840.1.017520.3.227. [id number] Self [id number] Medicare [place] Other 0 [id number] Self 0 Medicare [place] Other 0 [id number] Self 0 Medicare [place] Other 0 [id number] Self 0 Medicare [place] Other 0 [id number] Self 0 Medicare Medicare Primary [id number] 2.16.840.1.998835.3.227. [id number] Self [id number] Medicare Part [place] Other 0 [id number] Self 0 Medicare Medicare Primary [id number] 2.16.840.1.439341.3.227. [id number] Self [id number] Medicare Part [place] Other 0 [id number] Self 0 Medicare Medicare Primary [id number] 2.16.840.1.459835.3.227. [id number] Self [id number] Medicare [place] Other 0 [id number] Self 0 Medicare [place] Other 0 [id number] Self 0 Medicare Medigap Part B [id number]3.2 30389.0 Self [id number] Medicare Part [place] Other 0 [id number] Self 0 Medicare [place] Other 0 [id number] Self 0 Medicare [place] Medicare Primary [id number] 2.16.840.1.253283.3.227.99.104.58791.0 Self [id number] Medicare Medicare Primary [id number] 2.16.840.1.190735.3.227. [id number] Self [id number] Medicare Part [place] Other 0 [id number] Self 0 Medicare [place] Other 0 [id number] Self 0 Medicare Medicare Primary Federal [id number] Self Fed eral Medicare Part A of [place] Other 0 [id number] Self 0 Medicare Part [place] Other 0 [id number] Self 0 Medicare Part [place] Other 0 [id number] Self 0 Medicare [place] Medicare Primary [id number] 2.16.840.1.316[id number] Self [id number] [employer] Medigap Part B [id number] Self [id number] BCBS Commercial Medigap Part B [id number]9.683.021051.0 Self [id number] BCBS Commercial Medigap Part B [id number] Self BCBS Commercial Medigap Part B [id number].432061.0 Self [id number] BCBS Commercial Medigap Part B [id number] 2.0.1.728703.3.227.99.683.403976.0 Self [id number] BCBS Commercial Medigap Part B [id number] 2.0.1.242596.3.227.99.683.299826.0 Self [id number] BCBS Commercial Medigap Part B [id number] 2.0.1.026863.3.227.99.683.316094.0 Self [id number] BCBS Commercial Medigap Part B [id number] 2.0.1.790402.3.227.99.683.525661.0 Self [id number] BCBS Indemnity Medigap Part B [id number] Self BCBS Commercial Medigap Part B [id number] 2..1.205986.3.227.99.683.786188.0 Self [id number] BCBS Commercial Medigap Part B [id number] 2..1.328239.3.227.99.683.674103.0 Self [id number] BCBS [place] PPO 302/307 [id number] SP [id number] BCBS Commercial Medigap Part B [id number] [id number] Self [id number] BCBS Commercial Medigap Part B [id number] 2.0.1.158737.3.227.99.683.533461.0 Self [id number] BCBS Commercial Medigap Part B [id number] 2..840.1.952095.3.227.99.683.587213.0 Self [id number] [place] Other 0 [id number] Self 0 [place] Other 0 [id number] Self 0 [place] Other 0 [id number] Self 0 [place] Other 0 [id number] Self 0 [place] Other 0 [id number] Self 0 [place] Other 0 [id number] Self 0 [place] Other 0 [id number] Self 0 [place] Other 0 [id number] Self 0 [place] Other 0 [id number] Self 0 [place] Other 0 [id number] Self 0 [place] Other 0 [id number] Self 0 [place] Other 0 [id number] Self 0 [place] Other 0 [id number] Self 0 [place] Other 0 [id number] Self 0 [place] Other 0 [id number] Self 0 [place] Other 0 [id number] Self 0 [place] Other 0 [id number] Self 0 [place] Other 0 [id number] Self 0 [place] Other 0 [id number] Self 0 [place] Other 0 [id number] Self 0 [place] Other 0 [id number] Self 0 [place] Other 0 [id number] Self 0 [place] Other 0 [id number] Self 0 [place] Other 0 [id number] Self 0 [place] Other 0 [id number] Self 0 [employer] Medigap Part B [id number] Self [id number] Marianneus OLE[facility] Medigap Part B [id number] [id number] Self [id number] BCBS Commercial Medigap Part B [id number] 2.16840.1.584188.3.227.99.683.452908.0 Self [id number] BCBS Commercial Medigap Part B [id number]97.0 Self [id number] BCBS of [facility] Other 0 [id number] Self 0 BCBS Commercial Medigap Part B [id number] [id number]4585.0 Self [id number] BCBS Commercial Medigap Part B [id number] 2.16840.1.973862.3.227.99.683.676831.0 Self [id number] [place] Other 0 [id number] Self 0 [place] Other 0 [id number] Self 0 [place] Other 0 [id number] Self 0 [place] Other 0 [id number] Self 0 BCBS Commercial Medigap Part B [id number] [id number]0314.0 Self [id number] BCBS Commercial Medigap Part B [id number] 2.16840.1.489719.3.227.99.683.682646.0 Self [id number] BCBS Commercial Medigap Part B [id number] 2.16840.1.779611.3.227.99.683.569433.0 Self [id number] BCBS Commercial Medigap Part B [id number] Self [id number] BCBS Commercial Medigap Part B [id number] Self [id number] [facility] [place] [facility] Medigap Part B [id number] Self [id number] BS [place] Medigap Part B [id number] [id number]2917.0 Self [id number] BLUE CROSS [id number] SP [id number] BCBS Commercial Medigap Part B [id number] Self BCBS Indemnity Medigap Part B [id number] Self BLUE CROSS [id number] SP [id number] SELF PAY MEDICARE [id number] SP [id number] MEDICARE A [id number] Self [id number] E16 BLUE CROSS [id number] SP [id number] MEDICARE [id number] SP [id number] SELF PAY BLUE CROSS [id number] SP [id number] SELF PAY MEDICARE [id number] SP [id number] BLUE CROSS [id number] SP [id number] MEDICARE [id number] SP [id number] SELF PAY SELF PAY MEDICARE [id number] SP [id number] BLUE CROSS [id number] SP [id number] BCBS [place] PPO 302/307 [id number] SP [id number] MEDICARE [id number] SP [id number] BLUE CROSS [id number] SP [id number] SELF PAY SELF PAY MEDICARE [id number] SP [id number] BLUE CROSS [id number] SP [id number] UNAVAILABLE UNAVAILA BLE MEDICARE [facility] [id number] S [id number] MEDICARE [facility] [id number] S [id number] Blue Shield [facility] [id number] 18 [id number] Medicare [place] Medicare Primary .[id number]. [id number] Self MEDICARE [facility] [id number] S [id number] [facility] [place] [facility] Part B ..[id number] Self Medicare [place] [id number] 18 [id number] [place] UNAVAILABLE UNAVAILABLE MEDICARE M [id number] S [id number] A MEDICARE C [id number] S [id number] A EXCELLUS BCBS B [id number] S [id number] MEDICARE [id number] SP [id number] A MEDICARE C [id number] S [id number] E16 [place] 305/805 [id number] SP [id number] EXCELLUS BCBS B [id number] S VYW BLUE CROSS O [id number] S [id number] BS [place] Medigap Part B [id number] Self [id number] MEDICARE [id number] S [id number] A MEDICARE [id number] SP [id number] MEDICARE [id number] SP [id number] A EXCELLUS BLUE CROSS BLUE SHIELD HEA [id number] S [id number] BCBS OF [place] 306/806 [id number] SP [id number] Medicare [id number] Medicare [id number] ID IDENTIFICATION [id number] [id number] Other Insurance [id number] MEDICARE [facility] [id number] S [id number] [employer] Blue Cross [id number] Blue Cross/Skye eld [id number] Medicare Medicare Primary [id number] Self [id number] Problems, Conditions, and Diagnoses Code Display Name Description Problem Type Effective Dates Data Source(s) I10 Essential (primary) hypertension I10 - Essential (primary) hypertension Diagnosis 08/16/2020 11:36:00 AM [employer] K21.9 Gastro-esophageal reflux disease without esophagitis K21.9 - Gastro- esophageal reflux disease without esophagitis Diagnosis 08/16/19 11:36:00 AM [employer] E21.3 Hyperparathyroidism, unspecified E21.3 - Hyperpa rathyroidism, unspecified Diagnosis 08/16/2020 11:36:00 AM [employer] E03.9 Hypothyroidism, unspecified E03.9 - Hypothyroidism, un specified Diagnosis 08/16/2020 11:36:00 AM [employer] V76.51 Colon Screening Colon Screening Problem 1 10:12:00 AM EST - 08/24/2020 10:13:00 AM EST [facility]) V76.51 Colon Screening Colon Screening Problem 1 10:12:00 AM EST - 08/24/2020 10:13:00 AM [facility]) V76.51 Colon Screening Colon Screening Problem 1 10:12:00 AM EST - 08/24/2020 10:13:00 AM EST [facility]) V76.51 Colon Screening Colon Screening Problem 10:12:00 AM EST - 08/24/2020 10:13:00 AM EST [facility] Surgeries/Procedures Procedure Description Date Indications Data Source(s) RMVL IMPACTED CERUMEN SPX 1/BOTH EARS 03/05/2021 12:00 :00 AM EDT [facility] ([facility]) OFFICE OUTPATIENT VISIT 25 MINUTES 03/05/2021 12:00:00 AM EDT [facility]) Ligation of vein (procedure) History of venous ligation lt leg 02/22/2021 12:00:00 AM EDT [facility] Ligation of fallopian tube (procedure) History of tubal liga tion 197902/22/2021 12:00:00 AM EDT [facility] ([facility]) Decompression of median nerve (procedure) History of d ecompression of median nerve at carpal tunnel right 2001, left 201202/22/2021 12:00:00 AM EDT [facility] ([facility]) Cholecystectomy (procedure) History of cholecystectomy 197402/22/2021 12:00:00 AM EDT [facility] ([facility]) Lumpectomy of breast (procedure) History of breast lum pectomy was performed benign tumor removed right breast 199402/22/2021 12:00:00 AM EDT [facility] ([facility]) Appendectomy (procedure) History of appendectomy in cidental to cholecystectomy 197402/22/2021 12:00:00 AM EDT [facility] ([facility]) Operative procedure on ankle (procedure) History of ankle chowdhury rgery 2007 x 2 02/22/2021 12:00:00 AM EDT [facility] ([facility]) Summary provided electronically in CCDA format & reasonable certainty of receipt 02/22/2021 12:00:00 AM EDT - 02/22/2021 12:00:00 AM EDT [facility] ([facility]) Clinical summary provided to patient 12:00:00 AM EDT - 02/22/2021 12:00:00 AM EDT [facility] drug and/or alcohol abuse structured scr eening and brief intervention 02/22/2021 : Prescreening Completed - No Further Screening Indicated 02/22/2021 12:00:00 AM EDT - 02/22/2021 12:00:00 AM EDT [facility] ([facility]) medical regimen review 02/22/2021 12:00: 00 AM EDT - 02/22/2021 12:00:00 AM EDT [facility] ([facility]) Transition in care medication list update 02/22/2021 12:00:00 AM EDT - 02/22/2021 12:00:00 AM EDT [facility] ([facility]) Immunization education (procedure) 02/22 12:00:00 AM EDT - 02/22/2021 12:00:00 AM EDT [facility] ([facility]) continue current medication unless otherwise stated 02/22/2021 12:00:00 AM EDT - 02/22/2021 12:00:00 AM EDT [facility] ([facility] ) Tdap, Tetanus, Diphtheria Toxoids and Acellular Pertus sis Va Tdap, Tetanus, Diphtheria Toxoids and Acellular Pertussis Va 02/22/2021 12:00:00 AM EDT [facility] ([facility]) RMVL IMPACTED CERUMEN SPX 1/BOTH EARS 01/22/2021 12:00 :00 AM EDT [facility] ([facility]) RMVL IMPACTED CERUMEN SPX 1/BOTH EARS 12/31/2020 12:00 :00 AM EDT [facility]) OFFICE OUTPATIENT VISIT 25 MINUTES 12/31/2020 12:00:00 AM EDT [facility] ([facility]) X-Ray Spine Entire Thoracic/Lumbar 2 Or 3 Views 2020 12:00:00 AM EDT [facility] ([facility] ) X-Ray Spine Lumbosacral Complete Inc Bending Views Min Of 6 11/09/2020 12:00:00 AM EDT [facility] ([facility]) RMVL IMPACTED CERUMEN SPX 1/BOTH EARS 10/31/2020 12:00 :00 AM EDT [facility] ([facility]) OFFICE OUTPATIENT VISIT 25 MINUTES 10/31/2020 12:00:00 AM EDT [facility] ([facility]) NJX ANES&/STRD W/IMG TFRML EDRL LMBR/SAC 1 LVL 021 12:00:00 AM EDT [facility] ([facility]) NJX ANES&/STRD W/IMG TFRML EDRL LMBR/SAC EA LVL 2020 12:00:00 AM EDT [facility] ([facility]) Epidurography Radiological Supervision & Interpretation 10/01/2020 12:00:00 AM EDT [facility] ([facility]) Summary provided electronically in CCDA format & reasonable certainty of receipt 09/19/2020 12:00:00 AM EDT - 09/19/2020 12:00:00 AM EDT [facility] ([facility]) Clinical summary provided to patient 12:00:00 AM EDT - 09/19/2020 12:00:00 AM EDT [facility] ([facility]) medical regimen review 09/19/2020 12:00: 00 AM EDT - 09/19/2020 12:00:00 AM EDT [facility] ([facility]) continue current medication except where otherwise noted 09/19/2020 12:00:00 AM EDT - 09/19/2020 12:00:00 AM EDT [facility] ([facility]) RMVL IMPACTED CERUMEN SPX 1/BOTH EARS 08/29/2020 12:00 :00 AM EST [facility] ([facility]) OFFICE OUTPATIENT VISIT 25 MINUTES 08/29/2020 12:00:00 AM EST [facility] ([facility]) [facility] (fq) visit, established patient; a medically-necessary, vqvi-cd-bmwe encounter (one-on-one) between an established patient and a [facility] practitioner during which time one or more [facility] services are rendered and includes a typical bundle of medicare-covered services that would be furnished cut out and marking machine operator to a patient receiving a [facility] visit FQ Visit, established patient 08/24/2020 12:00:00 AM EST [facility] ([facility]) RMVL IMPACTED CERUMEN SPX 1/BOTH EARS 06/07/2020 12:00 :00 AM EST [facility] ([facility]) OV for Observation OV for Observation 05/17/2020 12:00:00 AM EST [facility] NJX ANES&/STRD W/IMG TFRML EDRL LMBR/SAC 1 LVL 020 12:00:00 AM EST [facility] ([facility]) NJX ANES&/STRD W/IMG TFRML EDRL LMBR/SAC EA LVL 2019 12:00:00 AM EST [facility] ([facility]) Epidurography Radiological Supervision & Interpretation 05/14/2020 12:00:00 AM EST [facility] ([facility]) Periodic Oral Evaluation Periodic Oral Evaluation 05/01/2020 12:00: 00 AM EDT [facility] ([facility] B[place] - 4 radiographic images [place] - 4 radiographic i mages 05/01/2020 12:00:00 AM EDT [facility] ([facility]) Prophylaxis Adult Prophylaxis Adult 05/01/2020 12:00:00 AM EDT [facility] Oral Cancer Screening Oral Cancer Screening 05/01/2020 12:00:00 AM EDT [facility] ([facility]) Oral Hygiene/Steve Inst Oral Hygiene/Steve Inst 05/01/2020 12:00:00 AM EDT [facility] Nutritional Counseling Nutritional Counseling 05/01/2020 12:00:00 A M EDT [facility]) Periodontal Charting Periodontal Charting 05/01/2020 12:00:00 AM ED T [facility] ([facility]) Resin-Based Comp 4 or more Surf Post Resin-Based Comp 4 or m ore Surf Post 04/25/2020 12:00:00 AM EDT [facility] ([facility]) intraoral-periapical first radiographic image intraora l-periapical first radiographic image 04/16/2020 12:00:00 AM EDT [facility] ([facility]) Resin-Based Comp 2 Surf Post Resin-Based Comp 2 Surf Post 12:00:00 AM EDT [facility] ([facility]) RMVL IMPACTED CERUMEN SPX 1/BOTH EARS 04/09/2020 12:00 :00 AM EDT [facility] ([facility]) NJX ANES&/STRD W/IMG TFRML EDRL LMBR/SAC 1 LVL 020 12:00:00 AM EDT [facility] ([facility]) NJX ANES&/STRD W/IMG TFRML EDRL LMBR/SAC EA LVL 2019 12:00:00 AM EDT [facility] ([facility]) Epidurography Radiological Supervision & Interpretation 03/19/2020 12:00:00 AM EDT [facility] ([facility]) Results ID Date Data Source [id number] 04/03/2021 04:04:00 PM EDT [facility] DATE OF EXAM: 03/28/2021ILATERAL SCREEN ING TOMOSYNTHESIS 3D DIGITAL MAMMOGRAM WITH CAD INDICATION: Screening COMPARISON: Mammograms dating back to 02/11/2016 LAST CLINICAL BREAST EXAM: March 2020 [facility] Breast Cancer Risk Evaluation (Tyrer-Cuzick Model v.8)This patient - Lifetime risk (to [...] NEGATIVE End of diagnostic report for accession: [id number] Interpreted: Ronald Avila MDTranscribed: 03/28/2021 11:12 AMSigned: 04/03/2021 04:04 PM Ronald Avila MD [facility] ACC # [id number] BILL # [id number] [place] Name Value Range Interpretation Code Description Data Dora rce(s) Supporting Document(s) ID Date Data Source [id number] 10/31/2020 12:08:00 PM EDT [facility] ([facility]) Name Value Range Interpretation Code Description Data Dora rce(s) Supporting Document(s) Glucose mean value [Mass/volume] in Blood Estimated fr om glycated hemoglobin 120 mg/dL [facility] The Estimated Average Glucose is a calcu lation of the average glucose over the last 120 days including non-fasting as well as fasting levels. Venipuncture Laboratory test result [facility] ([facility]) cc: Bernadine Ray ID Date Data Source [id number] 10/31/2020 12:08:00 PM EDT [facility] ([facility]) Name Value Range Interpretation Code Description Data Dora rce(s) Supporting Document(s) Thyrotropin [Units/volume] in Serum or Plasma 1.744 mIU/ml 0.350-5.50 0 [facility] ([facility]) cc: Bernadine Navarrete Thyroxine (T4) free [Mass/volume] in Serum or Plasma 1.44 ng/dL 0.89- 1.80 [facility] ([facility]) cc: Bernadine Ray ID Date Data Source [id number] 10/31/2020 12:08:00 PM EDT [facility] ([facility]) Name Value Range Interpretation Code Description Data Dora rce(s) Supporting Document(s) Hemoglobin A1c/Hemoglobin.total in Blood 5.8 % 3.6-6.9 [facility] ([facility]) <content>Hgb A1c Interpretation:</conten t>
<content><5.8% - Non- diabetic</content>
<content>>6.5% - Diabetic</content>
<content><7.0% - ADA diabetic treatment goal</content>
<content></content> ID Date Data Source [id number] 09/19/2020 06:11:00 PM [facility] Name Value Range Interpretation Code Description Data Dora rce(s) Supporting Document(s) SODIUM 142 MEQ/L 135-145 [facility] POTASSIUM 4.2 MEQ/L 3.5-5.3 [facility] CHLORIDE 108 MEQ/L 94-110 [facility] DIOXIDE 27 MEQ/L 22-33 [facility] ANION GAP 11 5-16 N [facility] BLOOD UREA NITRO 29 MG/DL 7-25 H [facility] CREATININE 1.0 MG/DL 0.6-1.4 N [facility] GFR 54.5 ML/MIN [facility] Stage G3a - Mildly to moderately decrea [...] years only. BUN/CREAT RATIO 29 8-36 [facility] GLUCOSE 100 MG/DL 70-100 N [facility] CA 9.1 MG/DL 8.7-10.5 [facility] BILIRUBIN,TOTAL 0.5 MG/DL 0.1-1.3 [facility] AST 10 U/L 5-40 [facility] ALT 18 U/L 5-48 [facility] ALKALINE PHOSPHATASE 78 U/L 40-140 [facility] alth TOTAL PROTEIN 6.2 G/DL 5.9-8.3 [facility] ALBUMIN 4.4 G/DL 3.0-5.1 [facility] GLOBULIN 1.8 G/DL 1.5-3.5 [facility] ALB/GLOB RATIO 2.4 G/DL 1.0-3.0 [facility] ID Date Data Source [id number] 09/03/2020 01:37:00 PM EST [facility] ([facility]) Name Value Range Interpretation Code Description Data Dora rce(s) Supporting Document(s) Covid Rapid Testing Laboratory test result [facility] ([facility]) ID Date Data Source [id number] 09/03/2020 12:00:00 AM EST [facility] Name Value Range Interpretation Code Description Data Dora rce(s) Supporting Document(s) Covid Rapid Testing negative [facility] This lab was ordered by [place] and re ported by [facility]. ID Date Data Source [id number] 08/16/2020 11:44:00 AM EST [facility] ([facility]) Name Value Range Interpretation Code Description Data Dora rce(s) Supporting Document(s) Reported Physicians See Note Reported Physicians [facility] ([facility]) Note: Reported Physicians:Ordering: Bernadine Navarrete LAttending: Bernadine Navarrete ID Date Data Source [id number] 08/16/2020 11:44:00 AM EST [facility] ([facility]) Name Value Range Interpretation Code Description Data Dora rce(s) Supporting Document(s) Thyrotropin [Units/volume] in Serum or Plasma by Detec tion limit <= 0.05 mIU/L 1.912 uIU/ML Normal TSH [facility] ([facility]) Note: Patients should not be tested for 72 hours post fluorescein dye angiography. A false depression of result may occur.Responsible Observer: TSH TSH 300.5500 (A) ID Date Data Source [id number] 08/16/2020 11:44:00 AM EST [facility] ([facility]) Name Value Range Interpretation Code Description Data Dora rce(s) Supporting Document(s) Calcidiol [Mass/volume] in Serum or Plasma 54.5 ng/ml Normal Vitamin D,25-HYDROXY [facility] ([facility]) Note: Vitamin D Status Rang e Deficiency <20 ng/ml Insufficiency 20-29.9 ng/ml Sufficiency 30-100 ng/ml Toxicity >100 ng/ml Patients should not be tested for 72 hours post fluorescein dye angiography. A false elevation of result may occur.Responsible Observer: Vitamin D Vitamin D,25-Hydroxy 300.5230 (A) ID Date Data Source [id number] 08/16/2020 11:44:00 AM EST [facility] ([facility]) Name Value Range Interpretation Code Description Data Dora rce(s) Supporting Document(s) Albumin [Mass/volume] in Synovial fluid 4.3 G/DL Normal ALBUMIN [facility] ([facility]) Note: Responsible Observer: ALB ALBUMIN 300.3900 (A) Albumin/Globulin [Mass Ratio] in Amniotic fluid 2.5 G/DL Normal ALB/GLOB RATIO [facility] ([facility]) Note: Responsible Observer: A/G RATIO AL B/GLOB RATIO 300.4100 (A) Alanine aminotransferase [Enzymatic activity/volume] in Seru m or Plasma 17 U/L Normal ALT [facility] ([facility]) Note: Responsible Observer: ALT/SGPT ALT 300.3100 (A) Alkaline phosphatase isoenzyme [Units/volume] in Serum or Plasma 76 U/L Normal ALKALINE PHOSPHATASE [facility] ([facility]) Note: Responsible Observer: ALK PHOS ALK JAKY PHOSPHATASE 300.3110 (A) Urea nitrogen/Creatinine [Mass Ratio] in Serum or Plasma 22 Normal BUN/CREAT RATIO [facility] ([facility]) Note: Responsible Observer: BUN/CREAT RA YOHANNES BUN/CREAT RATIO 300.0450 (A) Aspartate aminotransferase [Enzymatic activity/volume] in Se rum or Plasma 9 U/L Normal AST [facility] ([facility]) Note: Responsible Observer: AST/SGOT AST 300.3050 (A) BLOOD UREA NITRO 18 MG/DL Normal BLOOD UREA NITRO [facility] ([facility]) Note: Responsible Observer: BUN BLOOD UR EA NITROGEN 300.0350 (A) Bilirubin.total [Mass/volume] in Serum or Plasma 0.4 MG/DL Normal BILIRUBIN,TOTAL [facility] ([facility]) Note: Responsible Observer: TOTAL BILI T OTAL BILIRUBIN 300.2700 (A) Chloride [Moles/volume] in Serum, Plasma or Blood 110 MEQ/L Normal CHLORIDE [facility] ([facility]) Note: Responsible Observer: CL CHLORIDE 300.0200 (A) CA 9.0 MG/DL Normal CA [facility] ([facility]) Note: Responsible Observer: CA CALCIUM 300.2200 (A) Anion gap in Blood 10 Normal ANION GAP [facility] ([facility]) Note: Responsible Observer: ANION GAP AN ION GAP 300.0300 (A) Creatine/Creatinine [Mass Ratio] in Urine 0.8 MG/DL Valery l CREATININE [facility] ([facility]) Note: Responsible Observer: CREAT CREATI NINE 300.0400 (A) Carbon dioxide, total [Moles/volume] in Serum or Plasma 27 MEQ/L Normal CARBON DIOXIDE [facility] ([facility]) Note: Responsible Observer: CO2 CARBON D IOXIDE 300.0250 (A) GFR 70.5 ML/MIN GFR [facility] ([facility]) Note: Stage G2 - Mildly decreased [...] Serum by calculation 1.7 G/DL Normal GLOBULIN [facility] ([facility]) Note: Responsible Observer: GLOB GLOBULI N 300.4050 (A) Glucose [Presence] in Urine 93 MG/DL Normal [facility] Note: Responsible Observer: GLU GLUCOSE 300.0500 (A) Potassium [Mass/volume] in Blood 3.8 MEQ/L Normal POT ASSIUM [facility] ([facility]) Note: Responsible Observer: K POTASSIUM 300.0150 (A) Sodium [Moles/volume] in Serum, Plasma or Blood 143 MEQ/L Normal SODIUM [facility] ([facility]) Note: Responsible Observer: NA SODIUM 3 00.0100 (A) Protein [Mass/volume] in Synovial fluid 6.0 G/DL Normal TOTAL PROTEIN [facility] ([facility]) Note: Responsible Observer: TP TOTAL PRO TEIN 300.3750 (A) ID Date Data Source [id number] 08/16/2020 11:44:00 AM [facility] ([facility]) Name Value Range Interpretation Code Description Data Dora rce(s) Supporting Document(s) BASO % (AUTO) 0.7 % Normal BASO % (AUTO) [facility] ([facility]) Note: Responsible Observer: BASO % (AUTO ) BASO % (AUTO) 100.1250 (A) BASO # (AUTO) 0.05 10\\^3/uL Normal BASO # (AUTO) [facility] ([facility]) Note: Responsible Observer: BASO # (AUTO ) BASO # (AUTO) 100.1500 (A) EOS % (AUTO) 6.3 % Normal EOS % (AUTO) [facility] ([facility]) Note: Responsible Observer: EOS % (AUTO) EOS % (AUTO) 100.1200 (A) EOS # (AUTO) 0.46 10\\^3/uL Normal EOS # (AUTO) [facility] ( [facility]) Note: Responsible Observer: EOS # (AUTO) EOS # (AUTO) 100.1450 (A) GRAN # (AUTO) 4.67 10\\^3/uL Normal GRAN # (AUTO) [facility] ([facility]) Note: Responsible Observer: GRAN # (AUTO ) GRAN #(AUTO) 100.1325 (A) GRAN % (AUTO) 64.3 % Normal GRAN % (AUTO) [facility] ([facility]) Note: Responsible Observer: GRAN % (AUTO ) GRAN % (AUTO) 100.1000 (A) Hematocrit [Volume Fraction] of Blood by Automated count 38.9 % Normal HEMATOCRIT [facility] ([facility]) Note: Responsible Observer: HCT HEMATOCR IT 100.0400 (A) Hemoglobin [Mass/volume] in Blood 12.4 G/DL Normal HE MOGLOBIN [facility] ([facility]) Note: Responsible Observer: HGB HEMOGLOB IN 100.0300 (A) IG # (AUTO) 0.0 10\\^3/uL IG # (AUTO) [facility] ([facility]) Note: Responsible Observer: IG # (AUTO) IG # (AUTO) 100.1260 (A) IG % (AUTO) 0.4 % IG % (AUTO) [facility] ([facility]) Note: Responsible Observer: IG % (AUTO) IG % (AUTO) 100.1255 (A) LYMPH % (AUTO) 23.5 % Normal LYMPH % (AUTO) [facility] ( [facility]) Note: Responsible Observer: LYMPH % (AUT O) LYMPH % (AUTO) 100.1100 (A) LYMPH # (AUTO) 1.7 k/uL Normal LYMPH # (AUTO) [facility] ( [facility]) Note: Responsible Observer: LYMPH # (AUT O) LYMPH # (AUTO) 100.1350 (A) Erythrocyte mean corpuscular hemoglobin concentration [Mass/volume] by Automated count 31.9 G/DL Below low normal MCHC [facility] ([facility]) Note: Responsible Observer: MCHC MCHC 1 00.0650 (A) Erythrocyte mean corpuscular hemoglobin [Entitic mass] by Automated count 28.0 PG Normal MCH [facility] ([facility]) Note: Responsible Observer: MCH MCH 100 .0600 (A) Erythrocyte mean corpuscular volume [Entitic volume] by Auto mated count 87.8 FL Normal MCV [facility] ([facility]) Note: Responsible Observer: MCV MCV 100 .0550 (A) MONO # (AUTO) 0.35 k/uL Normal MONO # (AUTO) [facility] ([facility]) Note: Responsible Observer: MONO # (AUTO ) MONO # (AUTO) 100.1400 (A) MONO % (AUTO) 4.8 % Normal MONO % (AUTO) [facility] ([facility]) Note: Responsible Observer: MONO % (AUTO ) MONO% (AUTO) 100.1150 (A) MPV 10.4 FL Normal MPV [facility] ([facility]) Note: Responsible Observer: MPV MPV 100 .0950 (A) Erythrocytes [#/volume] in Blood by Automated count 4.43 10\\^6/uL Normal RED BLOOD COUNT [facility] ([facility]) Note: Responsible Observer: RBC RED BLOO D COUNT 100.0250 (A) Platelets [#/volume] in Plasma by Automated count 245 10\\^3/uL Normal PLATELET COUNT [facility] ([facility]) Note: Responsible Observer: PLT PLATELET COUNT 100.0850 (A) Erythrocyte distribution width [Ratio] by Automated count 13.0 % Normal RDW [facility] ([facility]) Note: Responsible Observer: RDW RDW 100 .0700 (A) Leukocytes [#/volume] in Blood by Automated count 7.27 10\\^3/uL Normal WHITE BLOOD COUNT [facility] ([facility]) Note: Responsible Observer: WBC WHITE BL OOD COUNT 100.0150 (A) ID Date Data Source [id number] 08/16/2020 01:39:00 PM [facility] Name Value Range Interpretation Code Description Data Dora rce(s) Supporting Document(s) WHITE BLOOD COUNT 7.27 10^3/uL 4.00-10.50 N [facility] RED BLOOD COUNT 4.43 10^6/uL 3.90-5.20 [facility] th HEMOGLOBIN 12.4 G/DL 11.5-15.6 N [facility] HEMATOCRIT 38.9 % 35.0-46.0 [facility] MCV 87.8 FL 80.0-100.0 [facility] MCH 28.0 PG 27.0-34.0 [facility] MCHC 31.9 G/DL 32-36 L [facility] RDW 13.0 % 11.5-14.5 [facility] PLATELET COUNT 245 10^3/uL 130-400 [facility] MPV 10.4 FL 8.7-13.2 [facility] GRAN % (AUTO) 64.3 % 42.0-75.0 N [facility] LYMPH % (AUTO) 23.5 % 20.0-51.0 N [facility] MONO % (AUTO) 4.8 % 2.0-15.0 N [facility] EOS % (AUTO) 6.3 % 0.0-11.0 N [facility] BASO % (AUTO) 0.7 % 0.0-2.0 N [facility] IG % (AUTO) 0.4 % 1.00-5.00 [facility] IG # (AUTO) 0.0 10^3/uL <0.5 [facility] GRAN # (AUTO) 4.67 10^3/uL 1.50-6.50 N [facility] LYMPH # (AUTO) 1.7 k/uL 1.0-5.0 N [facility] MONO # (AUTO) 0.35 k/uL 0.20-1.50 N [facility] EOS # (AUTO) 0.46 10^3/uL 0.00-1.10 N [facility] BASO # (AUTO) 0.05 10^3/uL 0.00-0.20 N [facility] ID Date Data Source [id number] 08/16/2020 05:28:00 PM EST [facility] Name Value Range Interpretation Code Description Data Dora rce(s) Supporting Document(s) SODIUM 143 MEQ/L 135-145 N [facility] POTASSIUM 3.8 MEQ/L 3.5-5.3 N [facility] CHLORIDE 110 MEQ/L 94-110 N [facility] CARBON DIOXIDE 27 MEQ/L 22-33 N [facility] ANION GAP 10 5-16 N [facility] BLOOD UREA NITRO 18 MG/DL 7-25 N [facility] CREATININE 0.8 MG/DL 0.6-1.4 N [facility] GFR 70.5 ML/MIN [facility] Stage G2 - Mildly decreased kidney func tion The GFR is an estimate of the Glomerular Filtration Rate. It is an aid to assess a patient's renal function. It is not a conclusive diagnosis of kidney disease. GFR normal is >=90 The MDRD GFR calculation is considered valid between the ages of 18 and 75 years only. BUN/CREAT RATIO 22 8-36 [facility] GLUCOSE 93 MG/DL 70-100 [facility] CA 9.0 MG/DL 8.7-10.5 [facility] BILIRUBIN,TOTAL 0.4 MG/DL 0.1-1.3 [facility] AST 9 U/L 5-40 [facility] ALT 17 U/L 5-48 [facility] ALKALINE PHOSPHATASE 76 U/L 40-140 [facility] TOTAL PROTEIN 6.0 G/DL 5.9-8.3 [facility] ALBUMIN 4.3 G/DL 3.0-5.1 [facility] GLOBULIN 1.7 G/DL 1.5-3.5 [facility] ALB/GLOB RATIO 2.5 G/DL 1.0-3.0 [facility] ID Date Data Source [id number] 08/16/2020 05:28:00 PM [facility] Name Value Range Interpretation Code Description Data Dora rce(s) Supporting Document(s) Vitamin D,25-HYDROXY 54.5 ng/ml 30-100 [facility] Vitamin D Status Range De ficiency <20 ng/ml Insufficiency 20-29.9 ng/ml Sufficiency 30-100 ng/ml Toxicity >100 ng/ml Patients should not be tested for 72 hours post fluorescein dye angiography. A false elevation of result may occur. ID Date Data Source [id number] 08/16/2020 05:28:00 PM [facility] Name Value Range Interpretation Code Description Data Dora rce(s) Supporting Document(s) TSH 1.912 uIU/ML 0.470-4.200 [facility] Patients should not be tested for 72 ho urs post fluorescein dye angiography. A false depression of result may occur. ID Date Data Source [id number] 08/13/2020 02:18:00 PM EST [facility] ([facility]) Name Value Range Interpretation Code Description Data Dora rce(s) Supporting Document(s) Laboratory test finding (navigational concept) Laboratory test result [facility] ([facility]) ID Date Data Source [id number] 06/07/2020 02:42:00 PM EST [facility] ([facility]) Name Value Range Interpretation Code Description Data Dora rce(s) Supporting Document(s) Venipuncture Laboratory test result [facility] ([facility]) ID Date Data Source [id number] 06/07/2020 02:42:00 PM EST [facility] ([facility]) Name Value Range Interpretation Code Description Data Dora rce(s) Supporting Document(s) Thyrotropin [Units/volume] in Serum or Plasma 1.598 mIU/ml 0.350-5.50 0 [facility] ([facility]) Thyroxine (T4) free [Mass/volume] in Serum or Plasma 1.25 ng/dL 0.89- 1.80 [facility] ([facility]) ID Date Data Source [id number] 06/07/2020 02:42:00 PM EST [facility] Name Value Range Interpretation Code Description Data Dora rce(s) Supporting Document(s) Creatinine [Mass/volume] in Serum or Plasma 0.9 mg/dL 0.5-1.3 [facility] ([facility]) Glucose [Mass/volume] in Serum or Plasma 122 mg/dL 74-106 Above high normal [facility] ([facility]) [place] [employer] (ADA) Recommended Range is 65-99 mg/dL Urea nitrogen [Moles/volume] in Serum or Plasma 22 mg/dL 6-20 Above high normal [facility] ([facility]) Chloride [Moles/volume] in Serum or Plasma 105 mmol/L 98-107 [facility] ([facility]) Potassium [Moles/volume] in Serum or Plasma 4.2 mmol/L 3.5-5.3 [facility] ([facility]) Sodium [Moles/volume] in Serum or Plasma 143 mmol/L 136-145 [facility] ([facility]) Carbon dioxide, total [Moles/volume] in Serum or Plasma 29 meq/L 20 -31 [facility] ([facility]) eGFR-female 62 mL/m/1.73m [facility] ([facility]) Anion Gap 9 mmol/L 7-16 [facility]) eGFR-Aa female 74 mL/m/1.73m [facility] ([facility]) <content>Normal Kidney Function or Mild Disease GFR >59 mL/min/1.73m2</content>
<content>Chronic Kidney Disease GFR 15-59 mL/min/1.73m2</content>
<content>Renal Failure GFR <15 mL/min/1.73m2</content>
<content></content> Alkaline phosphatase [Enzymatic activity/volume] in Serum or Plasma 69 U/L 46-116 [facility] ([facility]) Alanine aminotransferase [Enzymatic activity/volume] in Seru m or Plasma 22 U/L 4-36 [facility] ([facility]) Effective 01/03/2017: [email or web address] has indicated interference with the drugs sulfasalazine and sulfapyridine. They suggest collection should occur prior to drug administration due to falsely depressed results. Bilirubin.total [Mass/volume] in Serum or Plasma 0.3 mg/dL 0.3-1.2 [facility] ([facility]) Protein [Mass/volume] in Serum or Plasma 6.1 g/dL 6.4-8.3 Below low normal [facility] ([facility]) Results may reflect a potential interfer ence in Total Protein results in patients receiving dextran as blood volume expanders. Aspartate aminotransferase [Enzymatic activity/volume] in Serum or Plasma 22 U/L 8-33 [facility]) Albumin/Globulin [Mass Ratio] in Serum or Plasma 2.4 Ratio 1.0-2.0 Above high normal [facility] ([facility]) Albumin [Mass/volume] in Serum or Plasma 4.3 g/dL 3.6-5.1 [facility] ([facility]) Calcium [Mass/volume] in Serum or Plasma 9.3 mg/dL 8.9-10.5 [facility] ([facility]) Globulin [Mass/volume] in Serum by calculation 1.8 g/dL 1 .9-3.7 Below low normal [facility] ([facility]) ID Date Data Source [id number] 06/07/2020 02:42:00 PM EST [facility] ([facility]) Name Value Range Interpretation Code Description Data Dora rce(s) Supporting Document(s) Vitamin D+Metabolites [Mass/volume] in Serum or Plasma 51.63 ng/mL 30 -100 [facility] ([facility]) <content>Recommended Levels for Circulat ing 25-hydroxy Vitamin D:</content>
<content>Vitamin D Status 25-OH Vitamin D Test Result</content>
<content>Deficient <10ng/mL</content>
<content>Insufficient 10- 29ng/mL</content>
<content>Sufficient 30-100ng/mL</content>
<content>Potential Intoxication >100ng/mL</content>
<content>A pediatric reference range has not been established using this method.</content>
<content></content> Parathyrin.intact [Mass/volume] in Serum or Plasma 59.0 pg/mL 18.5-88 .0 [facility] ID Date Data Source [id number] 05/09/2020 10:00:00 AM EST [facility] ([facility]) Name Value Range Interpretation Code Description Data Dora rce(s) Supporting Document(s) Coronavirus 2019 Nasopharygeal Laboratory test result [facility] ([facility]) This nucleic acid amplification test was developed and its performance characteristics determined by [employer]. Nucleic acid amplification tests include PCR and [...] detected) result in this assay. Performed at: [facility] [address] [id number] [employer] Supervisor: Wilma Goldberg MD, Phone: [phone] Not Detected ID Date Data Source [id number] 05/09/2020 10:00:00 AM EST [facility] Name Value Range Interpretation Code Description Data Dora rce(s) Supporting Document(s) SARS coronavirus 2 RNA [facility] This lab was ordered by [facility] and reported by [facility]. ID Date Data Source [id number] 04/05/2020 11:42:00 AM EDT [facility] ([facility]) Name Value Range Interpretation Code Description Data Dora rce(s) Supporting Document(s) Platelets [#/volume] in Blood by Automated count 252 10 150-450 [facility] ([facility]) Prothrombin time (PT) 28.8 s 24.2-38.5 [facility] ([facility]) ID Date Data Source [id number] 04/05/2020 11:42:00 AM EDT [facility] ([facility]) Name Value Range Interpretation Code Description Data Dora rce(s) Supporting Document(s) Inr 1.00 [facility] ([facility]) THERAPUTIC HUMAN INR VALUES INDICATIONS NORMAL RANGES PROPHYLAXIS/TREATMENT OF: VENOUS THROMBOSIS 2.0-3.0 PULMONARY EMBOLISM 2.0-3.0 PREVENTION OF SYSTEMIC EMBOLISM FROM: TISSUE HEART VALVES 2.0-3.0 ACUTE MYOCARDIAL INFARCTION 2.0-3.0 VALVULAR HEART DISEASE 2.0-3.0 ATRIAL FIBRILLATION 2.0-3.0 MECHANICAL VALVES(HIGH RISK) 2.5-3.5 RECURRENT MYOCARDIAL INFARCTION 2.5-3.5 Prothrombin Time 13.4 s 12.5-14.3 [facility] ([facility]) ID Date Data Source [id number] 03/14/2020 10:00:00 AM EDT [facility] ([facility]) Name Value Range Interpretation Code Description Data Dora rce(s) Supporting Document(s) Coronavirus 2019 Nasopharygeal Laboratory test result [facility] ([facility]) This nucleic acid amplification test was developed and its performance characteristics determined by [employer]. Nucleic acid amplification tests include PCR and [...] detected) result in this assay. Performed at: - [facility] [address] [id number] [employer] Supervisor: Wilma Goldberg MD, Phone: [phone] Not Detected ID Date Data Source [id number] 03/14/2020 10:00:00 AM EDT [facility] Name Value Range Interpretation Code Description Data Dora rce(s) Supporting Document(s) SARS coronavirus 2 RNA [facility] This lab was ordered by [facility] and reported by [facility]. ID Date Data Source [id number] 03/13/2020 11:54:00 AM [facility] DATE OF EXAM: 03/13/2020BILATERAL DIAGNO [...] Professional interpretation performed at Dr. Hari Agarwal [facility] .End of diagnostic report for accession: [id number] Interpreted: Marlene Josue MDTranscribed: 03/13/2020 11:51 AMSigned: 03/13/2020 11:54 AM Marlene Joseu MD [facility] ACC # [id number] BILL # [id number] [facility] Name Value Range Interpretation Code Description Data Dora rce(s) Supporting Document(s) Procedure Social History Code Duration Value Status Description Data Source(s ) Smoking 02/22/2021 12:00:00 AM EDT Never smoked tobacco (findi ng) completed Never smoked tobacco (finding) [facility] ([facility]) Smoking 10/31/2020 12:00:00 AM EDT Patient has never smoked co mpleted Patient has never smoked [facility] ([facility]) Smoking 09/19/2020 12:00:00 AM EDT Never smoked [...] alcohol complete d Never used alcohol [facility] ([facility]) Vital Signs ID Date Data Source [id number] Name Value Range Interpretation Code Description Data Source(s) Body temperature 97.2 [degF] 97.2 [degF] [facility] ([facility]) Body weight 230.50 [lb_av] 230.50 [lb_av] MED[facility] T ([facility]) Heart rate 70 /min 70 /min [facility] ([facility]) Systolic blood pressure 138 mm[Hg] 138 mm[Hg] M EDENT ([facility]) Diastolic blood pressure 86 mm[Hg] 86 mm[Hg] [facility] ([facility]) Oxygen saturation in Arterial blood by Pulse oximetry 98 % 98 % [facility] Systolic blood pressure 131 mm[Hg] 131 mm[Hg] G [facility]AY ([facility]) Diastolic blood pressure 76 mm[Hg] 76 mm[Hg] [facility] ([facility]) Heart rate 98 /min 98 /min [facility] ([facility]) Body temperature 97.9 [degF] 97.9 [degF] [facility] Body height 64 [in_i] 64 [in_i] [facility] ([facility]) Body weight 230 [lb_av] 230 [lb_av] [facility] ([facility]) Body mass index (BMI) [Ratio] 39.5 kg/m2 39.5 k g/m2 [facility] ([facility]) Body surface area Derived from formula 2.08 m2 2.08 m2 [facility] ([facility]) PhenX - pain, abdominal - type and intensity protocol 5 5 [facility] ([facility]) Oxygen saturation in Arterial blood by Pulse oximetry 99 % 99 % [facility] ([facility]) Inhaled oxygen flow rate 0 L/min 0 L/min [facility] ([facility]) Inhaled oxygen concentration 21 % 21 % [facility] ([facility]) Body weight 246.00 [lb_av] 246.00 [lb_av] MED[facility] T ([facility]) Heart rate 96 /min 96 /min [facility] ([facility]) Systolic blood pressure 130 mm[Hg] 130 mm[Hg] [facility] Diastolic blood pressure [...] weight 238.00 [lb_av] 238.00 [lb_av] MED[facility] T ([facility]) Body mass index (BMI) [Ratio] 43.5 kg/m2 43.5 k g/m2 [facility] ([facility]) Systolic blood pressure 146 mm[Hg] 146 mm[Hg] M EDENT ([facility]) Diastolic blood pressure 86 mm[Hg] 86 mm[Hg] [facility] ([facility]) Heart rate 99 /min 99 /min [facility] ([facility]) Body temperature 96.6 [degF] 96.6 [degF] [facility] ([facility]) Body temperature 35.9 Tiki 35.9 Tiki [facility] ( [facility]) Oxygen saturation in Arterial blood by Pulse oximetry 97 % 97 % [facility] ([facility]) Body temperature 96.6 [degF] 96.6 [degF] [facility] ([facility] [facility]) Body height 62.5 [in_i] 62.5 [in_i] MEDENT ([facility]) 5'2.50" Body weight 236.50 [lb_av] 236.50 [lb_av] MEDEN T ([facility]) Body mass index (BMI) [Ratio] 42.6 kg/m2 42.6 k g/m2 MED[facility] ([facility]) Body temperature 97.2 [degF] [...] 98 % MEDENT ([facility]) [place] body weight 115 [lb_av] 115 [lb_av] MEDEN T ([facility]) Body mass index (BMI) [Ratio] 43.7 kg/m2 43.7 k g/m2 MED[facility] ([facility]) Body height 62.00 [in_i] 62.00 [in_i] [facility] ([facility]) 5'2" Body weight 238.00 [lb_av] 238.00 [lb_av] MEDEN T ([facility]) Body mass index (BMI) [Ratio] 43.5 kg/m2 43.5 k g/m2 MEDENT ([facility]) Systolic blood pressure 154 mm[Hg] 154 mm[Hg] M EDENT ([facility]) Diastolic blood pressure 74 mm[Hg] 74 mm[Hg] MEDENT ([facility]) Heart rate 110 /min 110 /[facility] Body temperature 97.1 [degF] 97.1 [degF] MEDENT ([facility]) Body temperature 36.2 Tiki 36.2 Tiki [facility]) Oxygen saturation in Arterial blood by Pulse oximetry 97 % 97 % MEDENT ([facility]) Systolic blood pressure 144 mm[Hg] 144 mm[Hg] G [facility] Diastolic blood pressure 78 mm[Hg] 78 mm[Hg] [facility] Heart rate 112 /min 112 /min P[facility]AVI ([facility]) Heart rate rhythm 1 1 [facility] Y [facility] Respiratory rate 19 /min 19 /min [facility] Body temperature 98.1 [degF] 98.1 [degF] GREENW AY [facility] Body weight 236 [lb_av] 236 [lb_av] [facility]I ([facility]) PhenX - pain, abdominal - type and intensity protocol 2 2 [facility] Oxygen saturation in Arterial blood by Pulse oximetry 97 % 97 % [facility] Inhaled oxygen flow rate 0 L/min 0 L/min PALLAVI ([facility]) Inhaled oxygen concentration 21 % 21 % PALLAVI ([facility]) Systolic blood pressure 158 mm[Hg] 158 mm[Hg] [facility] Diastolic blood pressure 86 mm[Hg] 86 mm[Hg] PALLAVI ([facility]) Diastolic blood pressure 80 mm[Hg] 80 mm[Hg] P[facility]AVI ([facility]) Systolic blood pressure 164 mm[Hg] 164 mm[Hg] G REENWAY ([facility]) Systolic blood pressure 164 mm[Hg] 164 mm[Hg] G REENWAY ([facility]) Diastolic blood pressure 76 mm[Hg] 76 mm[Hg] PALLAVI ([facility]) Heart rate 84 /min 84 /min PALLAVI ([facility]) Respiratory rate 21 /min 21 /min PALL[facility]I ([facility]) Body temperature 97.3 [degF] 97.3 [degF] [facility] Body weight 241 [lb_av] 241 [lb_av] PALLAVI ([facility]) PhenX - pain, abdominal - type and intensity protocol 5 5 PALLAVI ([facility]) Oxygen saturation in Arterial blood by Pulse oximetry 98 % 98 % [facility] ([facility]) Inhaled oxygen flow rate 0 L/min 0 L/min P[facility]I ([facility]) Inhaled oxygen concentration 21 % 21 % [facility] ([facility]) Body weight 248.00 [lb_av] 248.00 [lb_av] MEDEN T ([facility]) Heart rate 108 /min 108 /min MEDENT ([facility]) Body height 63 [in_i] 63 [in_i] MEDENT ([facility]) 5'3" Oxygen saturation in Arterial blood by Pulse oximetry 96 % 96 % MEDENT ([facility]) [place] body weight 115 [lb_av] 115 [lb_av] MEDEN T ([facility]) Body mass index (BMI) [Ratio] 43.9 kg/m2 43.9 k g/m2 MEDENT ([facility]) Systolic blood pressure 168 mm[Hg] 168 mm[Hg] G REENWAY ([facility]) Diastolic blood pressure 98 mm[Hg] 98 mm[Hg] PALLAVI ([facility]) Systolic blood pressure 194 mm[Hg] 194 mm[Hg] [facility] BP check in office Diastolic blood pressure 88 mm[Hg] 88 mm[Hg] [place] ([facility]) BP check in office PhenX - pain, abdominal - type and intensity protocol 0 0 [place] ([facility]) Unable to collect vitals due to Covid 19 pandemic. Body temperature 97.3 [degF] 97.3 [degF] MEDENT ([facility] ) Body height 62.00 [in_i] 62.00 [in_i] MED[facility] ([facility]) 5'2" Body mass index (BMI) [Ratio] 43.7 kg/m2 43.7 k g/m2 MEDENT ([facility]) Systolic blood pressure 164 mm[Hg] 164 mm[Hg] [facility] Diastolic blood pressure 76 mm[Hg] 76 mm[Hg] MEDENT ([facility]) Heart rate 115 /min 115 /min MEDENT ([facility]) Body temperature 97.8 [degF] 97.8 [degF] MEDENT ([facility]) Body weight 239.00 [lb_av] 239.00 [lb_av] MEDEN T ([facility]) Body temperature 36.6 Tiki 36.6 Tiki MEDENT ( [facility]) Oxygen saturation in Arterial blood by Pulse oximetry 99 % 99 % MEDENT ([facility]) Body temperature 97.3 [degF] 97.3 [degF] MEDENT ([facility]) Body weight 243.38 [lb_av] 243.38 [lb_av] MEDEN T ([facility]) Heart rate 108 /min 108 /min MED[facility] ([facility]) Body height 63 [in_i] 63 [in_i] MEDENT ([facility]) 5'3" Oxygen saturation in Arterial blood by Pulse oximetry 99 % 99 % MEDENT ([facility]) [place] body weight 115 [lb_av] 115 [lb_av] MEDEN T ([facility]) Body mass index (BMI) [Ratio] 43.1 kg/m2 43.1 k g/m2 MED[facility] ([facility]) Body temperature 96.2 [degF] 96.2 [degF] MEDENT ([facility] Body temperature 98.6 [degF] 98.6 [degF] MED[facility] ([facility]) Body weight 244.00 [lb_av] 244.00 [lb_av] MEDEN T ([facility]) Heart rate 102 /min 102 /min MED[facility] ([facility]) Oxygen saturation in Arterial blood by Pulse oximetry 98 % 98 % MEDENT ([facility]) Body height 62.00 [in_i] 62.00 [in_i] [facility] ([facility]) 5'2" Body weight 240.00 [lb_av] 240.00 [lb_av] MEDEN T ([facility]) Body mass index (BMI) [Ratio] 43.9 kg/m2 43.9 k g/m2 [facility] ([facility]) Systolic blood pressure 169 mm[Hg] 169 mm[Hg] M [facility] ([facility]) Diastolic blood pressure 99 mm[Hg] 99 mm[Hg] [facility] ([facility]) Heart rate 77 /min 77 /min [facility] ([facility]) Body temperature 97.2 [degF] 97.2 [degF] [facility] ([facility]) Body temperature 36.2 Tiki 36.2 Tiki [facility] ( [facility]) Patient Treatment Plan of Care Planned Activity Planned Date Details Description Data Source (s) gabapentin 300 MG Oral Capsule 02/22/2021 12:00:00 AM [facility] ([facility]) Losartan Potassium 100 MG Oral Tablet 02/22/2021 12:00:00 AM T P[facility] ([facility]) Spironolactone 50 MG Oral Tablet 02/22/2021 12:00:00 AM EDT P[facility]I ([facility]) 200 ACTUAT Albuterol 0.09 MG/ACTUAT Metered Dose Inhal er [Ventolin] 02/22/2021 12:00:00 AM [facility] ([facility]) 24 HR Diltiazem Hydrochloride 180 MG Extended Release Oral Capsule 02/22/2021 12:00:00 AM [facility] ([facility]) Nystatin 100 UNT/MG Topical Powder 02/22/2021 12:00:00 AM [facility] ([facility]) Nystatin 285769 UNT/ML Topical Cream 02/22/2021 12:00:00 AM EDT P[facility] ([facility]) Spironolactone 50 MG Oral Tablet 09/19/2020 12:00:00 AM EDT [facility] ([facility]) Losartan Potassium 100 MG Oral Tablet 09/19/2020 12:00:00 AM EDT [facility] ([facility]) Spironolactone 25 MG Oral Tablet 09/06/2020 12:00:00 AM EST [facility] ([facility]) 24 HR Diltiazem Hydrochloride 180 MG Extended Release Oral Capsule 09/06/2020 12:00:00 AM EST [facility] ([facility]) Losartan Potassium 100 MG Oral Tablet 09/06/2020 12:00:00 AM EST [facility] ([facility]) Cyclobenzaprine hydrochloride 10 MG Oral Tablet 08/24/2020 12:00:00 AM EST [facility] ([facility]) meloxicam 7.5 MG Oral Tablet [Mobic] 08/24/2020 12:00:00 AM EST [facility] ([facility]) Losartan Potassium 100 MG Oral Tablet 08/24/2020 12:00:00 AM EST [facility] ([facility]) Losartan Potassium 50 MG Oral Tablet 08/24/2020 12:00:00 AM [facility] ([facility]) 24 HR Diltiazem Hydrochloride 180 MG Extended Release Oral Capsule 08/21/2020 12:00:00 AM EST [facility] ([facility]) gabapentin 300 MG Oral Capsule 07/17/2020 12:00:00 AM EST [facility] ([facility]) gabapentin 300 MG Oral Capsule 03/14/2020 12:00:00 AM ED [facility] ([facility]) 24 HR Diltiazem Hydrochloride 180 MG Extended Release Oral Capsule 02/10/2020 12:00:00 AM ED P[facility] ([facility]) Cyclobenzaprine hydrochloride 10 MG Oral Tablet 12/19/2019 12:00:00 AM ED [facility] ([facility]) meloxicam 7.5 MG Oral Tablet [Mobic] 12/19/2019 12:00:00 AM EDT [facility] ([facility]) Losartan Potassium 50 MG Oral Tablet 12/13/2019 [facility] gabapentin 300 MG Oral Capsule 10/14/2019 12:00:00 AM [facility] ([facility])
--- NOTE | 2021-05-09 11:17 | REP ---
INDICATION: rios lllq pain. COMPARISON: None. TECHNIQUE: Noncontrast scanning through the abdomen and pelvis with coronal and sagittal reconstructions. FINDINGS: CT abdomen: Lung bases are without acute finding. Heart is not enlarged no pericardial thickening or effusion. There is a small hiatal hernia. See no hepatosplenomegaly, focal hepatic or splenic lesion, biliary dilatation nor adjacent ascites. Gallbladder surgically absent with clips in the fossa. Pancreas was grossly unremarkable. Adrenal glands are normal. Stomach show no acute finding. Kidneys show no hydronephrosis, stone, cyst or solid mass. No perinephric edema. Stool and gas throughout the colon with a few scattered diverticula but no signs of diverticulitis, colitis stricture or mass within the abdomen proper. Small bowel loops within the abdomen are fluid-filled but without dilatation, wall thickening or infiltration of the adjacent mesentery. There are few scattered small mesenteric nodes without pathologic sized adenopathy no periaortic or other retroperitoneal adenopathy. The aorta is without aneurysm and has a few scattered calcifications. Lung window review of all CT slices shows no perforation or free air. Tiny umbilical hernia only a small amount of omental fat but no bowel herniation. Bone windows show the lower ribs intact. There is vacuum phenomenon at multiple of disc spaces in the lower thoracic and lumbar spine there is partial fusion of the L2-3 lumbar levels with a syndesmophytes and osteophytes. Facet arthropathy in the lower lumbar spine noted with no spondylolysis or spondylolisthesis. CT pelvis: Bony sacrum, SI joints, pelvis and hips show some degenerative changes without acute destructive lesion or fractures. No AVN. Distal left colon and sigmoid show diverticulosis and some muscular hypertrophy without diverticulitis, colitis stricture or mass rectosigmoid junction and rectum intact without Genoveva rectal or pericolonic inflammatory change uterus not enlarged. It is anteverted and tilted slightly to the left. No pelvic mass or free fluid. Small bowel loops in the deep pelvis were unremarkable. There are no inflammatory changes about the cecum. Terminal ileum unremarkable. No pelvic ascites. Bladder is well distended and without wall thickening, stone or mass. No dilated distal ureter or ureteral stone. Multiple pelvic phleboliths seen. No ventral or inguinal hernia. No pelvic or inguinal adenopathy. IMPRESSION: 1. Diverticulosis distal left colon and sigmoid and scattered diverticula elsewhere in the colon without signs of colitis, diverticulitis, stricture or mass. There is no abdominal or pelvic ascites, abscess, perforation or free air. 2. Small bowel loops, upper abdominal solid organs and stomach show no acute findings have for a small hiatal hernia. 3. Prior cholecystectomy. 4. Degenerative changes throughout the spine. No destructive lesions. Bilateral hip osteoarthritis with joint space narrowing. <Electronically signed by Rolly Mcpherson > 05/09/21 [id number]
[2021-05-09 11:48] VITALS: BP 143/67
== END 2021-05-09 11:50 | disposition home or self-care (01) ==
LOC: M ED 09:00
DX: N17.8 Other acute kidney failure (principal); J45.909 Unspecified asthma, uncomplicated; E07.9 Disorder of thyroid, unspecified; Z79.890 Hormone replacement therapy; Z79.899 Other long term (current) drug therapy; Z88.5 Allergy status to narcotic agent; Z88.8 Allergy status to other drugs, medicaments and biological substances; Z88.2 Allergy status to sulfonamides; Z86.69 Personal history of other diseases of the nervous system and sense organs; Z90.49 Acquired absence of other specified parts of digestive tract; Z98.890 Other specified postprocedural states

== ENCOUNTER → 2023-07-07 | Outpatient (CLI) | payer MEDICARE, BC ==
[~2023-07-07] MED LIST: DILT180C38; GABA-282; LEVO100T5; LOSA100T46; MELO7.5T35; METHACHOLINE KIT INH ONE; SPIR50TA4
== END ==
LOC: M CARPUL 10:37
PROVIDERS: ATTEND Internal Medicine Pulmonary Disease
DX: R06.00 Dyspnea, unspecified (principal)
CPT/HCPCS: 94070; 95070; J7674

== ENCOUNTER → 2024-03-21 | Outpatient (CLI) | payer MEDICARE, BC ==
[~2024-03-21] MED LIST changes: -METHACHOLINE KIT INH ONE
== END ==
LOC: M RAD 10:33
PROVIDERS: ATTEND Internal Medicine Pulmonary Disease
DX: R91.1 Solitary pulmonary nodule (principal)